=== PATIENT | female | born 1955 | race Hispanic/Latino ===

== ENCOUNTER 2016-12-23 07:09 | Inpatient (IN) | payer OTHER, MEDICARE ==
[2016-12-23] MEDS ORDERED: Metoclopramide HCl 10 MG/2 ML VIAL ONE (07:42)
[2016-12-23] MEDS ORDERED: diphenhydrAMINE HCl 50 MG/ML 1 ML VIAL ONE (07:42)
[2016-12-23] MEDS ORDERED: Fentanyl 100 MCG/2 ML VIAL ONE (07:42)
[2016-12-23] MEDS ORDERED: Magnesium Sulfate 2 GM/100 ML BAG ONE (07:42)
[2016-12-23 07:45] LABS: #Lymphocytes 1.1 thou/uL (1.20-3.40); #Monocytes 0.3 thou/uL (0.11-0.59); #Neutrophils 5.1 thou/uL (1.40-6.50); %Basophils 0.5 % (0.0-1.0); %Eosinophils 0.5 % (0.0-10.0); %Lymphocytes 17.1 % (21.0-51.0); %Monocytes 5.1 % (0.0-10.0); Hematocrit 37.2 % (36.0-47.0); Mean Platelet Volume 7.4 fL (7.4-10.4); White Blood Cell (WBC) Count 6.6 thou/uL (4.8-10.8)
[2016-12-23 08:08] LABS: ALT (SGPT) 14 U/L (8-55); AST (SGOT) 21 U/L (5-34); Alkaline Phosphatase 108 U/L (40-150); Anion Gap 13 mmol/L (10-20); BUN (Urea Nitrogen) 11 mg/dL (9.8-20.1); Bilirubin, Total 1.6 mg/dL (0.2-1.2); Calc. Creatinine Clearance 0 mL/min (70-130); Calcium 9.4 mg/dL (7.8-10.44); Carbon Dioxide 31 mmol/L (23-31); Chloride 98 mmol/L (98-107); Estimated GFR-MDRD 48; Globulin 4.2 g/dL (2.4-3.5); Lipase 17 U/L (8-78)
[2016-12-23 08:11] LABS: Magnesium 0.9 mg/dL (1.6-2.6)
[2016-12-23] MEDS ORDERED: Senokot 8.6 MG TAB PO PRN (10:42)
[2016-12-23] MEDS ORDERED: Loperamide HCl 2 MG CAP PO PRN (10:42)
[2016-12-23] MEDS ORDERED: Milk Of Magnesia 30 ML UDCUP PO PRN (10:42)
[2016-12-23] MEDS ORDERED: Zolpidem Tartrate 5 MG TAB PO PRN (10:42)
[2016-12-23] MEDS ORDERED: Ondansetron ODT 4 MG TAB PO PRN (10:42)
[2016-12-23] MEDS ORDERED: Loratadine 10 MG TAB PO PRN (10:42)
[2016-12-23] MEDS ORDERED: Artificial Tears 18 DROP/0.9 ML EA EYE PRN (10:42)
[2016-12-23] MEDS ORDERED: Potassium Chloride 20 MEQ/100 ML PREMIX BAG IVPB SCH (10:42)
[2016-12-23] MEDS ORDERED: Diabetic Tussin 200 MG/10 ML UDCUP PO PRN (10:42)
[2016-12-23] MEDS ORDERED: Eucerin (Mineral Oil/Petrolatum,White) 30 gm Jar TOP PRN (10:42)
[2016-12-23] MEDS ORDERED: Sodium Chloride 0.65% Nasal 44 ML BOT EA NARE PRN (10:42)
[2016-12-23] MEDS ORDERED: Magnesium Sulfate 2 GM in Sodium Chloride 0.9% 100 ML IVPB SCH (10:42)
[2016-12-23] MEDS ORDERED: Dextrose 5% in Water 1,000 ML IV PRN (11:18)
[2016-12-23] MEDS ORDERED: HumaLOG 300 UNITS/3 ML VIAL SC PRN (11:18)
[2016-12-23] MEDS ORDERED: Dextrose 50% Abboject 50 ML SYRINGE SLOW IVP PRN (11:18)
[2016-12-23] MEDS: Sodium Chloride 0.9% 1,000 ML IV SCH (11:45)
--- NOTE | 2016-12-23 11:47 | HP ---
PRIMARY CARE PHYSICIAN: Dr. Gabbie Bullock REASON FOR ADMISSION: Intractable nausea, vomiting. HISTORY OF PRESENT ILLNESS: A 61-year-old female who has underlying history of diabetes type 2, hypertension, morbid obesity, and diabetes gastroparesis who came to the emergency room with complaint of vague abdominal discomfort predominantly in the epigastric and upper abdominal region along with nausea. The patient was trying to eat at home, but she was not able to keep anything down, even liquids. She was having abdominal pain and nausea and increased salivation in her mouth. All these symptoms were going on for the last 3-4 days. The patient reports that she had exactly similar symptoms in the recent hospital admission. At that time, the patient required almost 1 week hospital stay. At that time, Dr. Wu did upper endoscopy that was normal and CT brain was negative. The patient was treated symptomatically and patient was discharged home on 12/03/2016. After that, the patient was doing well up until 3 days ago. She started feeling similar symptoms again and that is why she decided to come to the emergency room for evaluation. In the emergency room, the patient was requiring frequent suctioning from her mouth because of excessive salivation. She had routine blood test, which showed hypokalemia, hypomagnesemia. The patient was given IV fluid, magnesium sulfate, Reglan 10 mg, fentanyl 50 microgram, Benadryl 25 mg. Even after that, the patient's symptomatology was not improving and that is why we decided to keep this patient in the hospital for observation. The patient reports that she saw a aquaculture farm manager, Dr. Palmer, who agreed with the patient's diabetic gastroparesis is acting up. REVIEW OF SYSTEMS: The following complete review of systems was negative, unless otherwise mentioned in the HPI or below: Constitutional: Weight loss or gain, ability to conduct usual activities. Skin: Rash, itching. Eyes: Double vision, pain. ENT/Mouth: Nose bleeding, neck stiffness, pain, tenderness. Cardiovascular: Palpitations, dyspnea on exertion, orthopnea. Respiratory: Shortness of breath, wheezing, cough, hemoptysis, fever or night sweats. Gastrointestinal: Poor appetite, abdominal pain, heartburn, nausea, vomiting, constipation, or diarrhea. Genitourinary: Urgency, frequency, dysuria, nocturia. Musculoskeletal: Pain, swelling. Neurologic/Psychiatric: Anxiety, depression. Allergy/Immunologic: Skin rash, bleeding tendency. Please see my HPI for pertinent positives and negatives. All other review of systems reviewed and negative except as mentioned in the HPI. EMERGENCY ROOM COURSE: Patient is given IV fluids, fentanyl 50 microgram, Benadryl 25 mg, Reglan 10 mg, and magnesium sulfate 2 grams. PAST MEDICAL HISTORY: Morbid obesity with BMI of 42, diabetes type 2, diabetic gastroparesis, hypertension, dyslipidemia, glaucoma. PAST SURGICAL HISTORY: Bilateral cataract surgery, cholecystectomy, hysterectomy, bilateral salpingo-oophorectomy, tonsillectomy, left foot Charcot repair. CURRENT HOME MEDICATIONS: Lipitor 20 mg p.o. at bedtime, brimonidine with Timolol ophthalmic drops each eye twice daily, Bentyl 10 mg p.o. q.i.d., glimepiride 2 mg p.o. daily, Lantus insulin 50 units in the morning and 50 units in the evening, Xalatan eyedrops at bedtime, lisinopril 20 mg p.o. daily, Reglan 10 mg p.o. q.6 hourly p.r.n., Zofran 4 mg q.6 h. p.r.n., Protonix 40 mg p.o. daily, Aldactone 25 mg p.o. b.i.d., metformin 500 mg p.o. b.i.d. ADDITIONAL INFORMATION: The patient was hypertensive in the emergency room with blood pressure in 200 systolic. The patient was attributing that because of her discomfort in her abdomen as well as substernal discomfort from nausea and vomiting. PSYCHIATRIC HISTORY: Reviewed and negative. SOCIAL HISTORY: Patient is . She drinks alcohol twice a month. She denies any smoking. She denies any illicit drug abuse. ALLERGIES: PHENERGAN. FAMILY HISTORY: No strong family history of cancer, CVA. Diabetes runs among several family members. PHYSICAL EXAMINATION: VITAL SIGNS: On arrival, blood pressure 200/108, pulse 102, respiratory rate 16 , temperature 99.2, saturation 96% on room air, weight 106.5 kilograms. GENERAL: The patient is currently alert, awake, no obvious acute distress. HEENT: Head; normocephalic, atraumatic. Eyes: Pupils round, reactive to light. Extraocular muscles intact. ENT: Oropharynx within normal limits. Moist mucous membranes. No oral lesions. No pharyngeal erythema, no exudate. NECK: Supple. Range of motion is normal. No meningeal signs of irritation. LUNGS: Clear to auscultation without any rhonchi or rales. CARDIAC: S1, S2 regular, tachycardia, no murmur, no gallop, no rub. ABDOMEN: Soft, bowel sounds present. Mild epigastric discomfort noted, no peritoneal signs, no organomegaly, no mass, no suprapubic tenderness. Obesity limiting examination. BACK: Unremarkable, no CVA tenderness. EXTREMITIES: Upper extremity passive movement of all joints are normal. Lower extremities: No edema. Good peripheral pulsation. SKIN: No skin rash. HEMATOLOGIC: No lymphadenopathy. PSYCHIATRIC: Normal affect. SIGNIFICANT LABS: 1. Tele monitor was showing normal sinus rhythm. 2. CBC: WBC 6.6, hemoglobin 12.1, platelet 249. BMP shows sodium 139, potassium 3.2, chloride 98, carbon dioxide 31, BUN 11, creatinine 1.14, glucose 184, calcium 9.4 3. Magnesium 20.9 4. LFT: AST 21, ALT 14, alkaline phosphatase 108, albumin 3.8, lipase 17. ASSESSMENT AND PLAN: 1. Intractable nausea and vomiting. The patient has underlying diagnosis of gastroparesis. The patient had a gastric emptying scan in 2008. The patient also had recently a CT of the abdomen and pelvis which was unremarkable and patient also had negative upper endoscopy. At this point, the patient will require admission for observation and will do symptomatic treatment with Zofran and Reglan. We will also try erythromycin for diabetes gastroparesis to see any improvement. We will continue with Pepcid 20 mg IV b.i.d. We will provide diet as tolerated. 2. Hypokalemia. The patient will be given potassium chloride 20 mEq IV 1 time dose. 3. Hypomagnesemia. The patient is given magnesium sulfate 2 grams in the emergency room and will repeat another 2 gram IV 1 time dose. We will repeat magnesium level tomorrow. 4. Diabetes type 2. We will continue with insulin as per sliding scale protocol. Diabetic diet will be given. 5. Hypertension with hypertensive urgency. We will use hydralazine and labetalol p.r.n. basis. If the patient is tolerating p.o. well, then we will also start her home medication. 6. Glaucoma. We will continue patient's ophthalmic drops, brimonidine with Timolol ophthalmic drops, Xalatan eyedrops as per home dosage. 7. Gastroesophageal reflux disease. We will continue Pepcid 20 mg IV b.i.d. along with Protonix 40 mg IV daily. 8. Morbid obesity with body mass index of 42, weight loss education given. Healthy lifestyle measures discussed with the patient. 9. Deep venous thrombosis prophylaxis not needed because we are expecting discharge in 24 hours. 10. Gastrointestinal prophylaxis. Patient is already on Pepcid and Protonix therapy. 11. Code status: The patient is full code. The patient's is surrogate decision maker. Disposition plan likely within 24-48 hours. Plan of care discussed with the patient and at bedside in the emergency room. MTDD
[2016-12-23] MEDS ORDERED: Potassium Chloride 20 MEQ in Sodium Chloride 0.9% 250 ML 250 ML IVPB SCH (12:00)
[2016-12-23] MEDS ORDERED: Magnesium 2 GM/NS 0.9% 100 ML 2 GM in Premix Bag 1 BAG IVPB SCH (12:00)
[2016-12-23] MEDS ORDERED: FLU VACC QS2017-18 36 mo. & older 0.5 ML SYRINGE IM ONE (12:00)
[2016-12-23] MEDS: Metoclopramide HCl 10 MG/2 ML VIAL IVP PRN (12:12)
[2016-12-23] MEDS: Erythromycin 500 MG in Sodium Chloride 0.9% 250 ML 250 ML IVPB SCH ×3 (13:48→23:23)
[2016-12-23] MEDS: Ondansetron HCl/PF 4 MG/2 ML Vial IVP PRN (15:28)
[2016-12-23] MEDS: Famotidine/PF 20 mg/2ml Vial SLOW IVP SCH (20:10)
[2016-12-24] MEDS: Sodium Chloride 0.9% 1,000 ML IV SCH ×2 (01:48→10:37)
[2016-12-24] MEDS: Ondansetron HCl/PF 4 MG/2 ML Vial IVP PRN (02:22)
[2016-12-24] MEDS: Metoclopramide HCl 10 MG/2 ML VIAL IVP PRN (03:19)
[2016-12-24] MEDS: Acetaminophen 325 MG TAB PO PRN ×2 (03:31→09:04)
[2016-12-24] MEDS: cloNIDine HCl 0.1 MG TAB PO PRN (03:33)
[2016-12-24] MEDS: Erythromycin 500 MG in Sodium Chloride 0.9% 250 ML 250 ML IVPB SCH ×4 (05:31→23:52)
[2016-12-24 05:49] LABS: Anion Gap 11 mmol/L (10-20); BUN (Urea Nitrogen) 12 mg/dL (9.8-20.1); BUN/Creatinine Ratio 13.48; Calc. Creatinine Clearance 111 mL/min (70-130); Calcium 8.2 mg/dL (7.8-10.44); Carbon Dioxide 29 mmol/L (23-31); Chloride 102 mmol/L (98-107); Estimated GFR-MDRD 64; Magnesium 1.2 mg/dL (1.6-2.6); Phosphorus 2.5 mg/dL (2.3-4.7)
[2016-12-24] MEDS: Pantoprazole 40 MG VIAL IVP SCH (09:05)
[2016-12-24] MEDS: Famotidine/PF 20 mg/2ml Vial SLOW IVP SCH ×2 (09:05→21:47)
[2016-12-24] MEDS ORDERED: Metoclopramide HCl 10 MG/2 ML VIAL IVP SCH (09:30)
--- NOTE | 2016-12-24 09:41 | PDOC.PN ---
- Subjective Encounter Start Date: 12/24/16 Encounter Start Time: 09:39 still having some nausea and abd discomfort no vomiting no f/c no sob - Objective Resuscitation Status: Resuscitation Status FULL:Full Resuscitation MAR Reviewed: Yes Vital Signs & Weight: Vital Signs (12 hours) Temp Pulse Resp BP BP Pulse Ox 12/24/16 07:46 98.6 F 90 16 12/24/16 07:19 98.6 F 90 16 144/88 H 95 12/24/16 04:56 98 14 153/78 H 12/24/16 03:33 198/97 H 12/24/16 03:19 98.5 F 104 H 16 198/97 H 94 L 12/24/16 03:12 98 12/23/16 23:17 99.1 F 101 H 20 136/71 98 Weight Weight 232 lb 8 oz I&O: 12/23/16 12/24/16 12/25/16 06:59 06:59 06:59 Intake Total 2968 Output Total 1250 Balance 1718 Result Diagrams: 12/23/16 07:37 12/24/16 04:55 Additional Labs: Accuchecks 12/24/16 12/23/16 12/23/16 04:55 20:24 16:59 POC Glucose 129 H 186 H 219 H 12/23/16 12:18 POC Glucose 222 H Phys Exam - Physical Examination Constitutional: NAD HEENT: moist MMs Neck: no JVD Respiratory: no wheezing Cardiovascular: no significant murmur Gastrointestinal: soft mild tenderness in epigastric area Musculoskeletal: pulses present Neurological: moves all 4 limbs Dx/Plan (1) Gastroparesis Code(s): K31.84 - GASTROPARESIS Status: Acute (2) Intractable nausea and vomiting Code(s): R11.2 - NAUSEA WITH VOMITING, UNSPECIFIED Status: Acute (3) DM2 (diabetes mellitus, type 2) Status: Chronic Qualifiers: Diabetes mellitus complication status: with neurologic complications Diabetes mellitus complication detail: with polyneuropathy Diabetes mellitus bed bug exterminator insulin use: with bed bug exterminator use Qualified Code(s): E11.42 - Type 2 diabetes mellitus with diabetic polyneuropathy; Z79.4 - bed bug exterminator (current) use of insulin Comment: (4) HTN (hypertension) Code(s): I10 - ESSENTIAL (PRIMARY) HYPERTENSION Status: Chronic Comment: (5) Morbid obesity with BMI of 40.0-44.9, adult Code(s): E66.01 - MORBID (SEVERE) OBESITY DUE TO EXCESS CALORIES; Z68.41 - BODY MASS INDEX (BMI) 40.0-44.9, ADULT Status: Chronic (6) Hypokalemia Code(s): E87.6 - HYPOKALEMIA Status: Resolved (7) Hypomagnesemia Code(s): E83.42 - HYPOMAGNESEMIA Status: Resolved (8) Moderate dehydration Code(s): E86.0 - DEHYDRATION Status: Resolved Comment: - Plan * .
[2016-12-24] MEDS ORDERED: Potassium Chloride 20 MEQ/100 ML PREMIX BAG IVPB SCH (10:00)
[2016-12-24] MEDS ORDERED: Magnesium Sulfate 2 GM in Sodium Chloride 0.9% 100 ML IVPB SCH (10:00)
[2016-12-24] MEDS: Metoclopramide HCl 10 MG/2 ML VIAL IVP SCH ×3 (10:44→21:49)
[2016-12-24] MEDS: HumaLOG 300 UNITS/3 ML VIAL SC PRN (11:25)
[2016-12-25] MEDS: Ondansetron HCl/PF 4 MG/2 ML Vial IVP PRN ×3 (00:31→16:09)
[2016-12-25] MEDS: Mag-Al 1200 mg/1200 mg/30 ML UDCUP PO PRN (01:43)
[2016-12-25] MEDS: Acetaminophen 325 MG TAB PO PRN (02:36)
[2016-12-25] MEDS: Metoclopramide HCl 10 MG/2 ML VIAL IVP SCH ×5 (03:44→23:46)
[2016-12-25] MEDS: cloNIDine HCl 0.1 MG TAB PO PRN (03:50)
[2016-12-25 04:45] LABS: Anion Gap 13 mmol/L (10-20); BUN (Urea Nitrogen) 10 mg/dL (9.8-20.1); BUN/Creatinine Ratio 11.76; Calc. Creatinine Clearance 116 mL/min (70-130); Calcium 8.5 mg/dL (7.8-10.44); Carbon Dioxide 29 mmol/L (23-31); Chloride 97 mmol/L (98-107); Estimated GFR-MDRD 68; Magnesium 1.4 mg/dL (1.6-2.6); Phosphorus 2.2 mg/dL (2.3-4.7)
[2016-12-25] MEDS: Erythromycin 500 MG in Sodium Chloride 0.9% 250 ML 250 ML IVPB SCH (06:03)
[2016-12-25] MEDS: Pantoprazole 40 MG VIAL IVP SCH (06:36)
[2016-12-25] MEDS: Famotidine/PF 20 mg/2ml Vial SLOW IVP SCH ×2 (08:09→21:11)
[2016-12-25] MEDS: Sodium Chloride 0.9% 1,000 ML IV SCH (08:20)
[2016-12-25] MEDS ORDERED: Magnesium 2 GM/NS 0.9% 100 ML 2 GM in Premix Bag 1 BAG IVPB SCH (10:00)
[2016-12-25] MEDS ORDERED: Potassium Chloride 20 MEQ/100 ML PREMIX BAG IVPB SCH ×2 (10:26→21:00)
[2016-12-25] MEDS ORDERED: Magnesium Sulfate 4 GM in Sodium Chloride 0.9% 250 ML 250 ML IVPB SCH (11:00)
--- NOTE | 2016-12-25 13:19 | PDOC.PN ---
- Subjective Encounter Start Date: 12/25/16 Encounter Start Time: 13:18 still very nauseus c/o abd pain no f/v no cp wants to try cld and advance tolerated - Objective Resuscitation Status: Resuscitation Status FULL:Full Resuscitation MAR Reviewed: Yes Vital Signs & Weight: Vital Signs (12 hours) Temp Pulse Resp BP BP Pulse Ox 12/25/16 10:45 99.3 F 95 20 149/72 H 91 L 12/25/16 08:58 108 H 12/25/16 08:00 98.2 F 119 H 24 H 12/25/16 07:40 98.2 F 119 H 24 H 118/76 95 12/25/16 07:00 132/60 12/25/16 06:40 105 H 211/114 H 12/25/16 06:05 105 H 187/94 H 12/25/16 03:50 211/102 H 12/25/16 03:45 99.2 F 105 H 18 211/102 H 95 Weight Admit Weight 231 lb 4.8 oz Weight 231 lb I&O: 12/24/16 12/25/16 12/26/16 06:59 06:59 06:59 Intake Total 2968 1357 250 Output Total 1250 2300 Balance 1718 -943 250 Result Diagrams: 12/23/16 07:37 12/25/16 04:19 Additional Labs: Accuchecks 12/25/16 12/25/16 12/24/16 10:45 06:14 20:49 POC Glucose 192 H 206 H 197 H 12/24/16 16:46 POC Glucose 162 H Phys Exam - Physical Examination Constitutional: NAD HEENT: PERRLA, moist MMs Neck: no JVD Respiratory: no rales Cardiovascular: RRR epigastric tenderness Musculoskeletal: pulses present Neurological: moves all 4 limbs Psychiatric: A&O x 3 Dx/Plan (1) Gastroparesis Code(s): K31.84 - GASTROPARESIS Status: Acute (2) Intractable nausea and vomiting Code(s): R11.2 - NAUSEA WITH VOMITING, UNSPECIFIED Status: Acute (3) DM2 (diabetes mellitus, type 2) Status: Chronic Qualifiers: Diabetes mellitus complication status: with neurologic complications Diabetes mellitus complication detail: with polyneuropathy Diabetes mellitus buttermilk drier operator insulin use: with [facility] use Qualified Code(s): E11.42 - Type 2 diabetes mellitus with diabetic polyneuropathy; Z79.4 - laborer marine terminal (current) use of insulin Comment: (4) HTN (hypertension) Code(s): I10 - ESSENTIAL (PRIMARY) HYPERTENSION Status: Chronic Comment: (5) Morbid obesity with BMI of 40.0-44.9, adult Code(s): E66.01 - MORBID (SEVERE) OBESITY DUE TO EXCESS CALORIES; Z68.41 - BODY MASS INDEX (BMI) 40.0-44.9, ADULT Status: Chronic (6) Hypokalemia Code(s): E87.6 - HYPOKALEMIA Status: Resolved (7) Hypomagnesemia Code(s): E83.42 - HYPOMAGNESEMIA Status: Resolved (8) Moderate dehydration Code(s): E86.0 - DEHYDRATION Status: Resolved Comment: - Plan * replace and f/u lytes * gi consult * make inpatient
[2016-12-25] MEDS: Labetalol HCl 100 MG/20 ML VIAL SLOW IVP PRN (16:07)
--- NOTE | 2016-12-25 17:17 | CON ---
DATE OF CONSULTATION: 12/25/2016 GI INPATIENT CONSULTATION NOTE REQUESTING PHYSICIAN: Dr. Alonso. REASON FOR CONSULTATION: Gastroparesis, nausea and vomiting. HISTORY OF PRESENT ILLNESS: Lilli Pike is a 61-year-old woman seen in GI outpatient setting by my colleague, Dr. Edgar Palmer. Her last colonoscopy in 2013 showed two small colon polyps removed an d sigmoid diverticulosis. She has a recent diagnosis of diabetic gastroparesis, her diabetes requir es quite high doses of insulin. She says few years ago, she was having issues with intractable naus ea and vomiting, but that resolved for a while, but now over the past couple of months, she has agai n been having issues with nausea, vomiting, and also excessive salivation. She was hospitalized her e for about a week last month and seen by Dr. Davis and Dr. Wu at that time, she had an EGD on which was normal. She had a head CT on 12/02/2016 which showed no acute processes. She had a CT of the abdomen and pelvis on 11/28/2016 which showed no acute findings. Her lab studies have all been essentially unremarkable with the exception of electrolyte abnormalities. but liver tests a nd lipase and CBC have remained normal throughout all this. She was started on Reglan, which she arthur s been taking the past couple weeks as an outpatient. She was also recently started on amitriptylin e 25 mg at bedtime which she feels helped a little bit. However, her epigastric pain and nausea got more severe and she was admitted to the hospital 2 days ago. Since being here, she has been treate d with IV PPIs, Reglan 10 mg q.6 hours IV, erythromycin IV was also tried. She has been receiving Z ofran. She has not received her amitriptyline here yet. Of note, upon arrival, she was in hyperten sive urgency and found to be hypokalemic and hypomagnesemic, through all of this; she has continued to have normal bowel movements. Earlier today, she was actually able to tolerate her diet and has k ept down. However, she does continue to have dry heaves and is doing a lot of spitting into a bag. REVIEW OF SYSTEMS: Full review of systems including constitutional, head, eyes, ears, nose, throat, GI, , cardiovascular, respiratory, musculoskeletal, and neurologic systems is negative except as noted in the HPI. PAST MEDICAL HISTORY: Obesity, hypertension, hyperlipidemia, diabetes, cholecystectomy, hysterectom y and bilateral salpingo-oophorectomy, diabetic gastroparesis, colon polyps with last colonoscopy 20 14, sigmoid diverticulosis. ALLERGIES: PHENERGAN causes oversedation. OUTPATIENT MEDICATIONS: Lipitor, glimepiride, Lantus insulin, lisinopril, Aldactone, Protonix 40 mg daily, metformin, Zofran, Reglan 10 mg q.i.d., amitriptyline 25 mg at bedtime. INPATIENT MEDICATIONS: Maalox, clonidine, Pepcid IV, Protonix IV, sliding scale insulin, Reglan 10 mg q.6 hours IV, Zofran p.r.n., erythromycin IV. SOCIAL HISTORY: Alcohol use is occasional. No smoking or drug use. FAMILY HISTORY: Her father had brain cancer. PHYSICAL EXAMINATION: VITAL SIGNS: Temperature 99.3, blood pressure 149/72, pulse is 95, 91% oxygen saturation on room ai r. GENERAL: Obese 61-year-old woman sitting up in bed in mild distress from nausea. She will occasion ally dry heaves salivating and spit into the bag. SKIN: No jaundice, no rashes were palpable. EYES: No scleral icterus. Extraocular movements intact. ENT: Mucous membranes moist, no oral lesions. LYMPH: No submandibular or supraclavicular lymphadenopathy. THYROID: Nontender to palpation. HEART: Regular rate and rhythm. LUNGS: Clear to auscultation bilaterally. ABDOMEN: Bowel sounds present, soft, tender to palpation in the epigastrium, but no guarding or gallo ound tenderness. EXTREMITIES: No peripheral edema. VESSELS: Radial pulses 2+ bilaterally. NEUROLOGICAL: Cranial nerves II-XII intact bilaterally. No focal deficits. LABORATORY DATA: WBC 6.6, hemoglobin 12.1, and platelets 249. Sodium 136, potassium 3.1, BUN 10, c reatinine 0.85, glucose 192, phosphorus 2.2, magnesium 1.4, lipase 17. Total bilirubin 1.6, alkalin e phosphatase 108, AST 21, ALT 14, albumin 3.8. ASSESSMENT AND PLAN: 1. Diabetic gastroparesis. 2. Nausea and vomiting secondary to gastroparesis. I reviewed all of her recent workup and her pre sentation is indeed consistent with gastroparesis. She is having quite a severe exacerbation of thi s right now. It seems medications are fairly maxed out. I do agree with adding back the amitriptyl ine 25 mg at bedtime, starting tonight and continue with IV fluid support, advance diet slowly as to lerated. She was able to rather keep her food down early today. 3. GI will follow along.
[2016-12-25] MEDS ORDERED: Potassium Chloride 20 MEQ in Sodium Chloride 0.9% 250 ML 250 ML IVPB SCH (21:00)
[2016-12-25] MEDS: Amitriptyline HCl 25 MG TAB PO SCH (21:11)
[2016-12-26] MEDS: cloNIDine HCl 0.1 MG TAB PO PRN (00:24)
[2016-12-26] MEDS: Mag-Al 1200 mg/1200 mg/30 ML UDCUP PO PRN ×2 (00:25→18:18)
[2016-12-26] MEDS: Sodium Chloride 0.9% 1,000 ML IV SCH (02:57)
[2016-12-26] MEDS: Potassium Chloride 20 MEQ in Sodium Chloride 0.9% 250 ML 250 ML IVPB SCH ×2 (02:57→13:09)
[2016-12-26] MEDS: Metoclopramide HCl 10 MG/2 ML VIAL IVP SCH ×3 (06:33→18:30)
[2016-12-26 07:15] LABS: Anion Gap 8 mmol/L (10-20); BUN (Urea Nitrogen) 8 mg/dL (9.8-20.1); Calc. Creatinine Clearance 122 mL/min (70-130); Calcium 8.3 mg/dL (7.8-10.44); Carbon Dioxide 30 mmol/L (23-31); Chloride 98 mmol/L (98-107); Estimated GFR-MDRD 73; Magnesium 1.5 mg/dL (1.6-2.6); Phosphorus 2.6 mg/dL (2.3-4.7)
[2016-12-26] MEDS: Pantoprazole 40 MG VIAL IVP SCH (08:01)
[2016-12-26] MEDS: Ondansetron HCl/PF 4 MG/2 ML Vial IVP PRN ×2 (08:01→16:04)
[2016-12-26] MEDS: Famotidine/PF 20 mg/2ml Vial SLOW IVP SCH ×2 (08:01→21:23)
[2016-12-26] MEDS ORDERED: Magnesium 2 GM/NS 0.9% 100 ML 2 GM in Premix Bag 1 BAG IVPB SCH (11:30)
--- NOTE | 2016-12-26 12:39 | PRG ---
GI INPATIENT DAILY PROGRESS NOTE DATE OF SERVICE: 12/26/2016 SUBJECTIVE: Mr. Pike is feeling quite a bit better today. She was able to tolerate her dinner l ast night and her breakfast this morning, which included grits and some juice. She had some mild dr shade enrique, but no vomiting since we talked yesterday. Abdominal discomfort persists a little bit, bu t has also improved. OBJECTIVE: VITAL SIGNS: Temperature 99.8, pulse 87, blood pressure 159/85 and 93% oxygen saturation on room ai r. GENERAL: Sitting up in bed comfortably in no distress. HEART: Regular rate and rhythm. LUNGS: Clear to auscultation bilaterally. ABDOMEN: Bowel sounds present, soft and nontender. EXTREMITIES: No peripheral edema. LABORATORY STUDIES: Sodium 133, potassium 3.4, BUN 8, creatinine 0.80, glucose 227, magnesium 1.5, albumin 3.0, phosphorus 2.6 and calcium 8.3. ASSESSMENT AND PLAN: 1. Gastroparesis secondary to diabetes. 2. Nausea and vomiting secondary to gastroparesis, improved today. Thankfully, she was able to get good sleep and has improvement in symptoms after starting back on the amitriptyline 25 mg at bedtim e. Hopefully, she will continue to do well. If she is able to advance her diet and do okay, she co uld be discharged from the hospital from a GI perspective to follow up with Dr. Palmer in our outpatie nt clinic.
[2016-12-26] MEDS ORDERED: Potassium Chloride 20 MEQ/100 ML PREMIX BAG IVPB SCH (16:00)
[2016-12-26] MEDS: Acetaminophen 325 MG TAB PO PRN (16:05)
[2016-12-26] MEDS: Labetalol HCl 100 MG/20 ML VIAL SLOW IVP PRN (16:28)
--- NOTE | 2016-12-26 17:19 | PDOC.PN ---
- Subjective Encounter Start Date: 12/26/16 Encounter Start Time: 17:18 Patient seen and examined. No new complaints. No overnight events nausea better no f/c - Objective MAR Reviewed: Yes Vital Signs & Weight: Vital Signs (12 hours) Temp Pulse Resp BP BP Pulse Ox 12/26/16 16:28 94 200/93 H 12/26/16 08:00 99.8 F H 87 18 159/85 H 93 L 12/26/16 05:33 93 L Weight Weight 231 lb 4.238 oz I&O: 12/25/16 12/26/16 12/27/16 06:59 06:59 06:59 Intake Total 700 Balance 700 Result Diagrams: 12/23/16 07:37 12/26/16 05:46 Additional Labs: Accuchecks 12/26/16 12/26/16 12/26/16 16:22 12:19 04:30 POC Glucose 259 H 226 H 208 H 12/25/16 12/25/16 20:01 16:59 POC Glucose 228 H 188 H Phys Exam - Physical Examination Constitutional: NAD HEENT: PERRLA Neck: no JVD Respiratory: no rales Cardiovascular: no significant murmur Gastrointestinal: non-tender Musculoskeletal: pulses present Neurological: moves all 4 limbs Psychiatric: A&O x 3 Dx/Plan (1) Gastroparesis Code(s): K31.84 - GASTROPARESIS Status: Acute (2) Intractable nausea and vomiting Code(s): R11.2 - NAUSEA WITH VOMITING, UNSPECIFIED Status: Acute (3) DM2 (diabetes mellitus, type 2) Status: Chronic Qualifiers: Diabetes mellitus complication status: with neurologic complications Diabetes mellitus complication detail: with polyneuropathy Diabetes mellitus fpc insulin use: with fpc use Qualified Code(s): E11.42 - Type 2 diabetes mellitus with diabetic polyneuropathy; Z79.4 - long term care pharmacist (current) use of insulin Comment: (4) HTN (hypertension) Code(s): I10 - ESSENTIAL (PRIMARY) HYPERTENSION Status: Chronic Comment: (5) Morbid obesity with BMI of 40.0-44.9, adult Code(s): E66.01 - MORBID (SEVERE) OBESITY DUE TO EXCESS CALORIES; Z68.41 - BODY MASS INDEX (BMI) 40.0-44.9, ADULT Status: Chronic (6) Hypokalemia Code(s): E87.6 - HYPOKALEMIA Status: Resolved (7) Hypomagnesemia Code(s): E83.42 - HYPOMAGNESEMIA Status: Resolved (8) Moderate dehydration Code(s): E86.0 - DEHYDRATION Status: Resolved Comment: - Plan * .
[2016-12-26] MEDS: HumaLOG 300 UNITS/3 ML VIAL SC PRN (17:49)
[2016-12-26] MEDS: Amitriptyline HCl 25 MG TAB PO SCH (21:23)
[2016-12-27] MEDS: Metoclopramide HCl 10 MG/2 ML VIAL IVP SCH ×4 (00:04→17:40)
[2016-12-27] MEDS: Mag-Al 1200 mg/1200 mg/30 ML UDCUP PO PRN ×2 (00:09→21:09)
[2016-12-27] MEDS: cloNIDine HCl 0.1 MG TAB PO PRN (03:20)
[2016-12-27] MEDS: HumaLOG 300 UNITS/3 ML VIAL SC PRN ×3 (05:47→16:11)
[2016-12-27 06:30] LABS: Anion Gap 8 mmol/L (10-20); BUN (Urea Nitrogen) 6 mg/dL (9.8-20.1); BUN/Creatinine Ratio 7.06; Calc. Creatinine Clearance 113 mL/min (70-130); Calcium 8.6 mg/dL (7.8-10.44); Carbon Dioxide 33 mmol/L (23-31); Chloride 93 mmol/L (98-107); Estimated GFR-MDRD 68; Magnesium 1.3 mg/dL (1.6-2.6); Phosphorus 2.4 mg/dL (2.3-4.7)
[2016-12-27] MEDS: Famotidine/PF 20 mg/2ml Vial SLOW IVP SCH ×2 (07:55→20:44)
[2016-12-27] MEDS: Pantoprazole 40 MG VIAL IVP SCH (08:00)
[2016-12-27] MEDS ORDERED: Magnesium 2 GM/NS 0.9% 100 ML 2 GM in Premix Bag 1 BAG IVPB SCH (10:30)
[2016-12-27] MEDS ORDERED: Potassium Chloride 20 MEQ/100 ML PREMIX BAG IVPB SCH (10:30)
--- NOTE | 2016-12-27 11:02 | PRG ---
DATE OF SERVICE: 12/27/2016 SUBJECTIVE: Ms. Pike has not had any further vomiting over the past 24 hours. She was able to g et good sleep last night with the amitriptyline. She continues to just spit out her secretions and uses suction for this. She denies dysphagia just says that when she swallows her saliva it increase s her nausea, no abdominal pain. She was able to tolerate her breakfast of yogurt and ice cream tod ay without difficulty. OBJECTIVE: VITAL SIGNS: Temperature 99.3, pulse 97, blood pressure 176/95, 91% oxygen saturation on room air. GENERAL: Sitting up in bed comfortably in no distress. HEART: Regular rate and rhythm. LUNGS: Clear to auscultation bilaterally. ABDOMEN: Soft and nontender. EXTREMITIES: No peripheral edema. LABORATORY STUDIES: Sodium 131, potassium 3.2, BUN 6, creatinine 0.85, glucose 252, magnesium 1.3. ASSESSMENT AND PLAN: 1. Diabetic gastroparesis. 2. Nausea and vomiting secondary to gastroparesis, clinically stable. The patient does seem to have significant improvement after starting back on the amitriptyline the p ast couple of nights. From a GI perspective, I think she could be discharged home to follow up in t outpatient setting as needed with Dr. Palmer. Would continue the Reglan p.o. as well. Please call back with questions or concerns.
[2016-12-27] MEDS: Acetaminophen 325 MG TAB PO PRN ×2 (11:42→21:09)
[2016-12-27 13:56] VITALS: BMI 41.5
--- NOTE | 2016-12-27 14:26 | PDOC.PN ---
- Subjective Encounter Start Date: 12/27/16 (\) Encounter Start Time: 14:24 still nausea, but is keep some cld down no f/c ambulating well - Objective MAR Reviewed: Yes Vital Signs & Weight: Vital Signs (12 hours) Temp Pulse Resp BP BP BP Pulse Ox 12/27/16 12:03 99.7 F H 93 16 133/79 12/27/16 10:40 153/87 H 12/27/16 08:00 99.3 F 97 16 12/27/16 07:23 99.3 F 97 16 176/95 H 91 L 12/27/16 06:00 85 160/77 H 12/27/16 05:20 86 185/108 H 12/27/16 05:00 98.7 F 86 18 185/108 H 95 12/27/16 03:35 92 L 12/27/16 03:20 184/99 H Weight Admit Weight 231 lb 4.8 oz Weight 227 lb 2 oz I&O: 12/26/16 12/27/16 12/28/16 06:59 06:59 06:59 Intake Total 700 840 Balance 700 840 Result Diagrams: 12/23/16 07:37 12/27/16 05:45 Additional Labs: Accuchecks 12/27/16 12/27/16 12/26/16 11:40 05:00 20:14 POC Glucose 258 H 245 H 289 H 12/26/16 16:22 POC Glucose 259 H Phys Exam - Physical Examination Constitutional: NAD HEENT: moist MMs Neck: no JVD Respiratory: no rales Cardiovascular: no significant murmur Gastrointestinal: non-tender Musculoskeletal: pulses present Neurological: moves all 4 limbs Psychiatric: A&O x 3 Dx/Plan (1) Gastroparesis Code(s): K31.84 - GASTROPARESIS Status: Acute (2) Intractable nausea and vomiting Code(s): R11.2 - NAUSEA WITH VOMITING, UNSPECIFIED Status: Acute (3) DM2 (diabetes mellitus, type 2) Status: Chronic Qualifiers: Diabetes mellitus complication status: with neurologic complications Diabetes mellitus complication detail: with polyneuropathy Diabetes mellitus predatory animal exterminator insulin use: with predatory animal exterminator use Qualified Code(s): E11.42 - Type 2 diabetes mellitus with diabetic polyneuropathy; Z79.4 - ferry terminal agent (current) use of insulin Comment: (4) HTN (hypertension) Code(s): I10 - ESSENTIAL (PRIMARY) HYPERTENSION Status: Chronic Comment: (5) Morbid obesity with BMI of 40.0-44.9, adult Code(s): E66.01 - MORBID (SEVERE) OBESITY DUE TO EXCESS CALORIES; Z68.41 - BODY MASS INDEX (BMI) 40.0-44.9, ADULT Status: Chronic (6) Hypokalemia Code(s): E87.6 - HYPOKALEMIA Status: Resolved (7) Hypomagnesemia Code(s): E83.42 - HYPOMAGNESEMIA Status: Resolved (8) Moderate dehydration Code(s): E86.0 - DEHYDRATION Status: Resolved Comment: - Plan * replace mag and k * check lytes in am * d/c when symptoms resolved * gi input appreciated
[2016-12-27] MEDS: Ondansetron HCl/PF 4 MG/2 ML Vial IVP PRN (16:12)
[2016-12-27] MEDS: Amitriptyline HCl 25 MG TAB PO SCH (20:44)
[2016-12-27] MEDS: Magnesium Oxide 400 MG TAB PO SCH (20:44)
[2016-12-28] MEDS: Metoclopramide HCl 10 MG/2 ML VIAL IVP SCH ×3 (00:33→12:21)
[2016-12-28 04:32] LABS: #Lymphocytes 1.5 thou/uL (1.20-3.40); #Monocytes 0.4 thou/uL (0.11-0.59); #Neutrophils 6.1 thou/uL (1.40-6.50); %Basophils 0.1 % (0.0-1.0); %Eosinophils 0.4 % (0.0-10.0); %Lymphocytes 18.4 % (21.0-51.0); %Monocytes 5.1 % (0.0-10.0); Hematocrit 38.4 % (36.0-47.0); Mean Platelet Volume 7.3 fL (7.4-10.4); Red Blood Cell (RBC) Count 4.18 mill/uL (4.20-5.40)
[2016-12-28 05:14] LABS: Anion Gap 13 mmol/L (10-20); BUN (Urea Nitrogen) 6 mg/dL (9.8-20.1); BUN/Creatinine Ratio 7.32; Calc. Creatinine Clearance 117 mL/min (70-130); Calcium 8.9 mg/dL (7.8-10.44); Carbon Dioxide 31 mmol/L (23-31); Chloride 90 mmol/L (98-107); Estimated GFR-MDRD 71; Magnesium 1.3 mg/dL (1.6-2.6); Phosphorus 2.7 mg/dL (2.3-4.7)
[2016-12-28] MEDS: HumaLOG 300 UNITS/3 ML VIAL SC PRN ×2 (05:43→12:21)
[2016-12-28] MEDS ORDERED: Potassium Chloride 20 MEQ TAB PO SCH (09:00)
[2016-12-28] MEDS: Famotidine/PF 20 mg/2ml Vial SLOW IVP SCH (09:30)
[2016-12-28] MEDS: Magnesium Oxide 400 MG TAB PO SCH (09:30)
[2016-12-28] MEDS: Ondansetron HCl/PF 4 MG/2 ML Vial IVP PRN (09:32)
--- NOTE | 2016-12-28 10:52 | PDOC.PN ---
- Subjective Encounter Start Date: 12/28/16 Encounter Start Time: 07:30 Subjective: no nausea or vomiting -: ambulates with walker -: feels better, wants to go home - Objective MAR Reviewed: Yes Vital Signs & Weight: Vital Signs (12 hours) Temp Pulse Resp BP Pulse Ox 12/28/16 08:00 99.5 F 106 H 18 93 L 12/28/16 07:33 99.5 F 106 H 18 165/104 H 93 L 12/28/16 04:00 98.6 F 106 H 18 169/75 H 92 L 12/28/16 00:00 98.9 F 91 18 181/101 H 94 L Weight Admit Weight 231 lb 4.8 oz Weight 226 lb 4 oz I&O: 12/27/16 12/28/16 12/29/16 06:59 06:59 06:59 Intake Total 840 1780 Balance 840 1780 Result Diagrams: 12/28/16 03:43 12/28/16 03:43 Additional Labs: Accuchecks 12/28/16 12/27/16 12/27/16 04:21 19:44 15:57 POC Glucose 229 H 243 H 193 H 12/27/16 11:40 POC Glucose 258 H Phys Exam - Physical Examination HEENT: PERRLA, moist MMs Neck: no JVD, supple Respiratory: no wheezing, no rales Cardiovascular: RRR, no significant murmur Gastrointestinal: soft, non-tender, no distention, positive bowel sounds Musculoskeletal: no edema, pulses present Neurological: non-focal, moves all 4 limbs Psychiatric: A&O x 3 Dx/Plan (1) Gastroparesis Code(s): K31.84 - GASTROPARESIS Status: Acute (2) Intractable nausea and vomiting Code(s): R11.2 - NAUSEA WITH VOMITING, UNSPECIFIED Status: Resolved (3) DM2 (diabetes mellitus, type 2) Status: Chronic Qualifiers: Diabetes mellitus complication status: with neurologic complications Diabetes mellitus complication detail: with polyneuropathy Diabetes mellitus nursing home insulin use: with nursing home use Qualified Code(s): E11.42 - Type 2 diabetes mellitus with diabetic polyneuropathy; Z79.4 - terminal manager (current) use of insulin Comment: (4) HTN (hypertension) Code(s): I10 - ESSENTIAL (PRIMARY) HYPERTENSION Status: Chronic Qualifiers: Hypertension type: essential hypertension Qualified Code(s): I10 - Essential (primary) hypertension Comment: (5) Morbid obesity with BMI of 40.0-44.9, adult Code(s): E66.01 - MORBID (SEVERE) OBESITY DUE TO EXCESS CALORIES; Z68.41 - BODY MASS INDEX (BMI) 40.0-44.9, ADULT Status: Chronic (6) Acute kidney injury Code(s): N17.9 - ACUTE KIDNEY FAILURE, UNSPECIFIED Status: Resolved Comment : (7) Moderate dehydration Code(s): E86.0 - DEHYDRATION Status: Resolved Comment: - Plan dc pt home -: start home meds as adv on dc med rec -: was not insulin or diabetic meds here, so will start only tabs for now -: request zofran and reglan prescriptions-its faxed -: to f/u with GI as adv and PCP in 1 week. * .
[2016-12-28 11:26] VITALS: TEMP 99.3
[2016-12-28 12:46] VITALS: BP 146/89
--- NOTE | 2016-12-28 20:28 | DIS ---
DATE OF ADMISSION: 12/23/2016 DATE OF DISCHARGE: 12/28/2016 DISCHARGE DISPOSITION: To home. PRIMARY DISCHARGE DIAGNOSES: Intractable nausea and vomiting due to diabetic gastroparesis, resolve d; diabetes mellitus type 2; hypertension; morbid obesity; acute kidney injury, resolved; moderate d ehydration, resolved. DISCHARGE MEDICATIONS: Amitriptyline 25 mg p.o. at bedtime, atorvastatin 20 mg p.o. at bedtime, Com bigan eyedrops as before, Bentyl p.r.n., glimepiride 2 mg p.o. q.a.m., glargine insulin 10 units sub cutaneously twice daily, Xalatan eyedrops as before, lisinopril 40 mg p.o. daily, magnesium oxide 40 0 mg p.o. daily, Reglan 10 mg p.o. q.6 hourly p.r.n. before meals for nausea and vomiting, Protonix 40 mg p.o. daily, spironolactone 25 mg p.o. daily, metformin 500 mg p.o. twice daily. ALLERGIES: Allergic to PHENERGAN. INPATIENT CONSULT: Dr. Vaughn Luciano for Gastroenterology. DISCHARGE PLAN: Patient to follow up with primary care physician in 1 week. She also needs to chec k her blood pressure and fingerstick glucose on a daily basis and record for a period of 10 days to follow up with primary care physician. BRIEF COURSE DURING HOSPITALIZATION: The patient initially got admitted with complaints of intracta ble nausea and vomiting. She has history of diabetes mellitus type 2 with neuropathy and gastropare sis. She was initially kept n.p.o. and was slowly weaned into solid food prior to discharge. She h as had consultation with Dr. Vaughn Luciano for Gastroenterology. She has had slow and steady recovery. Prior to discharge, she is ambulating with a rolling walker and tolerating solid food. She is hem odynamically stable and has been cleared by Dr. Vaughn Luciano for discharge. Please see a face to face documentation on [facility] for the day of discharge.
== END 2016-12-28 13:12 | disposition home or self-care (01) | DRG 74 ==
LOC: ERS 07:09 → INTOOBSV 08:49 → 2SW 08:49 → OBSVTOIN 12-25 13:08 → T4-A 12-25 14:50
PROVIDERS: ADMIT Internal Medicine; ATTEND Internal Medicine
DX: E11.43 Type 2 diabetes mellitus with diabetic autonomic (poly)neuropathy (principal); N17.9 Acute kidney failure, unspecified; Z68.41 Body mass index [BMI] 40.0-44.9, adult; E83.42 Hypomagnesemia; I10 Essential (primary) hypertension; K31.84 Gastroparesis; Z79.4 Long term (current) use of insulin; I16.0 Hypertensive urgency; E87.6 Hypokalemia; Z98.42 Cataract extraction status, left eye; Z98.41 Cataract extraction status, right eye; Z90.49 Acquired absence of other specified parts of digestive tract; Z90.710 Acquired absence of both cervix and uterus; Z90.722 Acquired absence of ovaries, bilateral; Z88.8 Allergy status to other drugs, medicaments and biological substances; H40.9 Unspecified glaucoma; K21.9 Gastro-esophageal reflux disease without esophagitis; E66.01 Morbid (severe) obesity due to excess calories; E86.0 Dehydration
CPT/HCPCS: 36415; 36416; 80053; 80069; 83690; 83735; 85025; 96365; 96367; 96375; C9113; J0360; J1200; J1364; J2405; J2765; J3010; J3475; J3480; J7050; Q0162; S0028

== ENCOUNTER 2016-12-30 10:41 | Inpatient (IN) | payer OTHER, MEDICARE ==
[2016-12-30 11:38] LABS: #Lymphocytes 1.7 thou/uL (1.20-3.40); #Neutrophils 10.1 thou/uL (1.40-6.50); %Basophils 0.3 % (0.0-1.0); %Eosinophils 0.1 % (0.0-10.0); %Lymphocytes 13.3 % (21.0-51.0); %Monocytes 7.8 % (0.0-10.0); Hematocrit 36.2 % (36.0-47.0); Mean Platelet Volume 7.3 fL (7.4-10.4); Red Blood Cell (RBC) Count 3.95 mill/uL (4.20-5.40); White Blood Cell (WBC) Count 12.9 thou/uL (4.8-10.8)
[2016-12-30 12:13] LABS: Lactic Acid - Sepsis 2.6 mmol/L (0.5-2.2)
[2016-12-30 12:15] LABS: ALT (SGPT) 13 U/L (8-55); AST (SGOT) 20 U/L (5-34); Alkaline Phosphatase 111 U/L (40-150); Anion Gap 13 mmol/L (10-20); BUN (Urea Nitrogen) 20 mg/dL (9.8-20.1); Bilirubin, Total 1.6 mg/dL (0.2-1.2); CK (CPK) 65 U/L (29-168); Calc. Creatinine Clearance 0 mL/min (70-130); Calcium 9.1 mg/dL (7.8-10.44); Carbon Dioxide 32 mmol/L (23-31); Chloride 86 mmol/L (98-107); Estimated GFR-MDRD 26; Globulin 3.2 g/dL (2.4-3.5); Lipase 34 U/L (8-78); Protein, Total 6.6 g/dL (6.0-8.3)
[2016-12-30 12:16] LABS: Troponin I 0.049 ng/mL (< 0.028)
[2016-12-30 13:35] LABS: Bilirubin Small (Negative); Blood, Urine Negative (Negative); Glucose, Urine (Dipstick) 250 mg/dL (Negative); Ketone, Urine 15 mg/dL (Negative); Nitrite Negative (Negative); Protein, Urine (Dipstick) 300 mg/dL (Neg-Trace)
[2016-12-30 13:41] LABS: Bacteria/HPF None Seen HPF (None Seen); Hyaline Casts/LPF 0-3 HYALINE CAST LPF (0-3 Hyaline)
[2016-12-30 13:47] LABS: Renal Epithelial None Seen HPF (0-3); Transitional Epithelial NONE SEEN HPF (0-3)
[2016-12-30] MEDS ORDERED: Piperacillin/Tazobactam 4.5 GM VIAL ONE (13:48)
--- NOTE | 2016-12-30 13:50 | RAD ---
PORTABLE UPRIGHT FRONTAL CHEST RADIOGRAPH: Date: 12-30-16 Comparison: 12-07-14 History: Hypotension and weakness. FINDINGS: Inspiration is shallow. Heart and mediastinal contours are grossly unremarkable. No pneumothorax, lo bar consolidation, or alveolar edema. IMPRESSION: No acute findings. POS: [facility]
[2016-12-30] MEDS ORDERED: Ondansetron HCl/PF 4 MG/2 ML Vial ONE (15:18)
[2016-12-30] MEDS ORDERED: Diabetic Tussin 200 MG/10 ML UDCUP PO PRN (16:02)
[2016-12-30] MEDS ORDERED: Labetalol HCl 100 MG/20 ML VIAL SLOW IVP PRN (16:02)
[2016-12-30] MEDS ORDERED: Loperamide HCl 2 MG CAP PO PRN (16:02)
[2016-12-30] MEDS ORDERED: Milk Of Magnesia 30 ML UDCUP PO PRN (16:02)
[2016-12-30] MEDS ORDERED: Eucerin (Mineral Oil/Petrolatum,White) 30 gm Jar TOP PRN (16:02)
[2016-12-30] MEDS ORDERED: Nitroglycerin 0.4 MG TAB (25 Tab Bottle) SL PRN (16:02)
[2016-12-30] MEDS ORDERED: Sodium Chloride 0.65% Nasal 44 ML BOT EA NARE PRN (16:02)
[2016-12-30] MEDS ORDERED: Dextrose 50% Abboject 50 ML SYRINGE SLOW IVP PRN (16:02)
[2016-12-30] MEDS ORDERED: Artificial Tears 18 DROP/0.9 ML EA EYE PRN (16:02)
[2016-12-30] MEDS ORDERED: Senokot 8.6 MG TAB PO PRN (16:02)
[2016-12-30] MEDS ORDERED: Dextrose 5% in Water 1,000 ML IV PRN (16:02)
[2016-12-30] MEDS ORDERED: Loratadine 10 MG TAB PO PRN (16:02)
[2016-12-30] MEDS ORDERED: Zolpidem Tartrate 5 MG TAB PO PRN (16:02)
--- NOTE | 2016-12-30 16:03 | HP ---
PRIMARY CARE PHYSICIAN: Gabbie Bullock M.D. REASON FOR ADMISSION: Hypotension, abnormal electrolytes, lactic acidosis, urinary tract infection. HISTORY OF PRESENT ILLNESS: A 61-year-old female who had recently multiple admissions in our hospit al. She is keep coming in our emergency room with complaint of nausea and vomiting. She is sufferi ng from diabetes and gastroparesis. Her most recent admission in our hospital was on 12/23/2016. T he patient was treated for diabetes, gastroparesis, and she was discharged home on 12/28/2016. Toda y, the patient had regular followup visit with the primary care physician. During previous admissio n in our hospital, adding machine servicer was also following. When she saw Dr. Bullock today, the patien todd was feeling miserable. She was having very weakness, fell down and she was hypotensive. Her puls e was very difficult to read and that is why she was sent to the emergency room for evaluation. In the emergency room, her lowest blood pressure was 76/53. She was having nausea and vomiting. Sh efraín also had loose stool last night. The patient is taking Zofran and Reglan as prescribed. Despite that, the patient is not able to keep anything down after going home. The patient denies any cough. She denies any pleuritic chest pain. She denies any fever or chills at home. She denies any urin haresh tract infection symptoms, but her urinalysis was abnormal in the emergency room. The patient de nies any sick exposures. She denies any recent travel, but she required multiple hospitalizations r ecently. She denies any recent antibiotic exposure. She denies any recent Molina catheterization in hospital. When I saw this patient, the patient was having nausea. She was not able to keep anything down. Sh e was tachycardic as well as blood pressure started improving after IV fluid. Routine blood tests s howed hyponatremia, hypokalemia, acute kidney failure, elevated troponin, lactic acidosis, and findi ngs suggestive of urinary tract infection. The patient denies any melena or hematochezia. She denies any hematemesis. REVIEW OF SYSTEMS: The following complete review of systems was negative, unless otherwise mentione d in the HPI or below: Constitutional: Weight loss or gain, ability to conduct usual activities. Skin: Rash, itching. Eyes: Double vision, pain. ENT/Mouth: Nose bleeding, neck stiffness, pain, tenderness. Cardiovascular: Palpitations, dyspnea on exertion, orthopnea. Respiratory: Shortness of breath, wheezing, cough, hemoptysis, fever or night sweats. Gastrointestinal: Poor appetite, abdominal pain, heartburn, nausea, vomiting, constipation, or diar mayela. Genitourinary: Urgency, frequency, dysuria, nocturia. Musculoskeletal: Pain, swelling. Neurologic/Psychiatric: Anxiety, depression. Allergy/Immunologic: Skin rash, bleeding tendency. Please see my HPI for pertinent positives and negatives. All other review of system reviewed and ne gative except as mentioned in the HPI. PAST MEDICAL HISTORY: Morbid obesity, diabetes, type 2 diabetes, gastroparesis, hypertension, dysli pidemia, and glaucoma. PAST SURGICAL HISTORY: Bilateral cataract surgery, cholecystectomy, hysterectomy, bilateral salping o-oophorectomy, tonsillectomy, left foot surgery for Charcot foot. EMERGENCY ROOM COURSE: The patient has received vancomycin and Zosyn, IV fluid 2 liters and subsequ ently the patient received another 2 liters of IV fluid. CURRENT HOME MEDICATIONS: 1. The patient was discharged a couple of days ago from following medications: Amitriptyline 25 mg p.o. at bedtime, Lipitor 20 mg p.o. at bedtime, brimonidine with Timolol ophthalmic drops each eye q.12 hourly, glimepiride 2 mg p.o. daily, Lantus insulin 10 units subcutaneously twice daily, Xalata n eyedrops each eye at bedtime, lisinopril 40 mg p.o. daily, magnesium oxide 400 mg p.o. daily, Regl an 10 mg p.o. q.6 hourly p.r.n., Zofran 4 mg p.o. q.8 hourly p.r.n., Protonix 40 mg p.o. daily, Giana ctone 25 mg p.o. daily, and metformin 500 mg p.o. b.i.d. PAST PSYCHIATRIC HISTORY: Anxiety and depression. SOCIAL HISTORY: The patient is . Her is present at bedside in the emergency room. She currently denies any tobacco, alcohol or illicit drug abuse. ALLERGIES: PHENERGAN. FAMILY HISTORY: No strong family history of cancer, stroke, or coronary artery disease, but diabete s and hypertension runs among several family members. PHYSICAL EXAMINATION: VITAL SIGNS: On arrival, blood pressure 76/53, currently blood pressure improved to 121/70 after IV fluid, pulse 95, respiratory rate 16, temperature 98.3, saturation 96% on room air, weight 146.5 ki lograms. GENERAL: The patient is currently appears sick, no obvious acute distress. HEENT: Head: Normocephalic and atraumatic. Eyes: Pupils round and reactive to light. Extraocula r muscles are intact. ENT: Oropharynx within normal limits. Dry appearing mucous membranes. No o ral lesions. No pharyngeal erythema, no exudate. NECK: Supple. Range of motion is normal. No meningeal signs of irritation. LUNGS: Clear to auscultation without any rhonchi or rales. CARDIAC: S1, S2 regular. No murmur, no gallop, no rub. ABDOMEN: Soft, bowel sounds present, nontender, nondistended. No organomegaly, no mass, no suprapu bic tenderness. BACK: Unremarkable. No CVA tenderness. EXTREMITIES: Upper extremity passive movements of all joints are normal. Lower extremities: No ed alyson. Good peripheral pulsation. SKIN: No skin rash. HEMATOLOGICAL: No lymphadenopathy. SIGNIFICANT LABORATORY: 1. CBC: WBC 12.9, hemoglobin 12.2, and platelets 343. 2. BMP: Sodium 128, potassium 3.0, chloride 86, carbon dioxide 32, BUN 20, creatinine 1.96, glucos e 302, calcium 9.1, and lactic acid 2.6. 3. LFT: AST 20, ALT 13, alkaline phosphatase 111, albumin 3.4, CK 65, CK-MB 2.6, troponin I 0.049. Lipase 34. Urinalysis consistent with urinary tract infection. EKG showing normal sinus rhythm, prolonged QTC interval: ASSESSMENT AND PLAN: 1. Acute kidney failure, prerenal etiology secondary to persistent nausea and vomiting, unable to t olerate p.o. The patient will be given IV fluid with NS with KCl and we will repeat BMP tomorrow. We will avoid nephrotoxic agent. 2. Abnormal electrolytes, hyponatremia, hypochloremia, and hypokalemia. We will check magnesium an d phosphorus, and replace potassium with IV fluid and we will repeat BMP tomorrow. If magnesium and phosphorus is low, then we will replace magnesium and phosphorus as well. 3. Lactic acidosis may be related with underlying sepsis given hypotension or it could be related w ith metformin and poor perfusion from hypotension. At this point, the patient is started on broad s pectrum antibiotic therapy. We will repeat lactic acid again tomorrow. 4. Abnormal troponin, likely due to demand ischemia. This patient does not have any chest pain, do es not have any EKG changes. We will do 3 sets of cardiac enzymes to rule out acute coronary syndro me. 5. Urinary tract infection. We will continue with Rocephin 2 gram IV daily and Levaquin 500 mg IV daily. We will follow up on culture result and change antibiotic therapy accordingly. 6. Hypotension, likely rule out sepsis and the patient's hypotension improved with IV fluid. We wi ll monitor closely on telemetry floor. We will avoid antihypertensive medication for now because of low blood pressure. 7. Diabetes type 2, not well controlled. We will continue with aggressive scale insulin as per [facility] scale protocol. We will also continue with Lantus insulin 10 units subcutaneously b.i.d. We wi ll hold on metformin therapy. 8. Diabetic gastroparesis. The patient will be given Reglan 10 mg IV q.6 hourly and Zofran 4 mg q. 6 p.r.n. 9. Glaucoma. We will continue brimonidine and Timolol ophthalmic drops q.12 hourly along with Xala leonard eyedrops at bedtime as per home dosage. 10. Gastroesophageal reflux disease. We will continue Protonix 40 mg IV daily. 11. Dyslipidemia. We will continue Lipitor 20 mg p.o. at bedtime. 12. Anxiety and depression. We will continue amitriptyline 25 mg p.o. at bedtime. 13. Morbid obesity. Dietary education given, weight loss education given. 14. Deep venous thrombosis prophylaxis. Heparin 5000 units subcu twice daily. 15. Gastrointestinal prophylaxis. The patient is already on Protonix therapy. 16. Code status: The patient is FULL CODE. The patient's is surrogate decision maker. Disposition plan based on clinical course. We are expecting patient's stay in hospital more than 2 midnights. Plan of care discussed with the patient and at bedside in the emergency room.
[2016-12-30 16:52] LABS: Troponin I 0.045 ng/mL (< 0.028)
[2016-12-30] MEDS: Acetaminophen 325 MG TAB PO PRN (17:06)
[2016-12-30] MEDS: cefTRIAXone\\ROCEPHIN 1 GM in Sodium Chloride 0.9% 100 ML IVPB SCH (19:48)
[2016-12-30] MEDS: NS 0.9% w/ 40 MEQ KCL 1,000 ML IV SCH (21:09)
[2016-12-30] MEDS: Heparin 5,000 UNITS/ML VIAL SC SCH (21:10)
[2016-12-30] MEDS: HumaLOG 300 UNITS/3 ML VIAL SC PRN (21:11)
[2016-12-30] MEDS: Metoclopramide HCl 10 MG/2 ML VIAL IVP PRN (21:26)
[2016-12-31] MEDS: HYDROcodone/Acetaminophen 5/325 mg Tablet PO PRN (04:33)
[2016-12-31] MEDS: Ondansetron ODT 4 MG TAB PO PRN (04:33)
[2016-12-31 05:33] LABS: ALT (SGPT) 11 U/L (8-55); AST (SGOT) 20 U/L (5-34); Alkaline Phosphatase 83 U/L (40-150); Anion Gap 10 mmol/L (10-20); BUN (Urea Nitrogen) 14 mg/dL (9.8-20.1); Bilirubin, Total 1.2 mg/dL (0.2-1.2); Calc. Creatinine Clearance 77 mL/min (70-130); Calcium 8.3 mg/dL (7.8-10.44); Carbon Dioxide 33 mmol/L (23-31); Chloride 91 mmol/L (98-107); Estimated GFR-MDRD 43; Globulin 3.1 g/dL (2.4-3.5); Protein, Total 6.2 g/dL (6.0-8.3)
[2016-12-31 05:42] LABS: #Lymphocytes 1.6 thou/uL (1.20-3.40); #Monocytes 0.8 thou/uL (0.11-0.59); #Neutrophils 6.8 thou/uL (1.40-6.50); %Basophils 0.1 % (0.0-1.0); %Eosinophils 0.2 % (0.0-10.0); %Lymphocytes 17.4 % (21.0-51.0); %Monocytes 8.3 % (0.0-10.0); Hematocrit 31.6 % (36.0-47.0); Mean Platelet Volume 7.6 fL (7.4-10.4); Red Blood Cell (RBC) Count 3.45 mill/uL (4.20-5.40); White Blood Cell (WBC) Count 9.2 thou/uL (4.8-10.8)
[2016-12-31] MEDS ORDERED: Potassium Chloride 20 MEQ TAB PO SCH (06:00)
[2016-12-31] MEDS: Potassium Chloride 20 MEQ TAB PO SCH ×3 (08:03→17:36)
[2016-12-31] MEDS: Saccharomyces boulardii 250 MG CAP PO SCH (08:03)
[2016-12-31] MEDS: Heparin 5,000 UNITS/ML VIAL SC SCH ×2 (08:03→21:00)
[2016-12-31] MEDS: HumaLOG 300 UNITS/3 ML VIAL SC PRN ×3 (08:03→17:35)
[2016-12-31 09:09] LABS: Magnesium 1.1 mg/dL (1.6-2.6); Phosphorus 2.5 mg/dL (2.3-4.7)
[2016-12-31] MEDS ORDERED: Magnesium Sulfate 4 GM in Sodium Chloride 0.9% 250 ML 250 ML IVPB SCH (10:30)
--- NOTE | 2016-12-31 11:04 | PDOC.PN ---
- Subjective Encounter Start Date: 12/31/16 Encounter Start Time: 08:00 Patient seen and examined. No overnight events, has nausea, able to take some oral intake, no diarrhoea, no fever - Objective Resuscitation Status: Resuscitation Status FULL:Full Resuscitation MAR Reviewed: Yes Vital Signs & Weight: Vital Signs (12 hours) Temp Pulse Resp BP Pulse Ox 12/31/16 07:10 99.0 F 104 H 16 177/88 H 96 12/31/16 04:00 99.3 F 104 H 16 143/69 H 93 L 12/31/16 00:00 99.1 F 104 H 16 132/61 92 L Weight Admit Weight 231 lb 3.2 oz Weight 229 lb I&O: 12/30/16 12/31/16 01/01/17 06:59 06:59 06:59 Intake Total 720 Output Total 1500 Balance -780 Result Diagrams: 12/31/16 04:12 12/31/16 04:12 Additional Labs: Accuchecks 12/31/16 12/30/16 12/30/16 06:21 20:17 17:24 POC Glucose 158 H 266 H 191 H EKG Reviewed by me: Yes Phys Exam - Physical Examination Constitutional: NAD HEENT: PERRLA, moist MMs, sclera anicteric Neck: no JVD, supple Respiratory: no wheezing, no rales, no rhonchi Cardiovascular: RRR, no significant murmur, no rub Gastrointestinal: soft, non-tender, no distention, positive bowel sounds obesity+ Musculoskeletal: no edema, pulses present Neurological: non-focal, normal sensation, moves all 4 limbs Psychiatric: normal affect, A&O x 3 Skin: no rash, normal turgor Dx/Plan (1) Acute kidney failure Status: Acute (2) Dehydration Code(s): E86.0 - DEHYDRATION Status: Acute (3) Demand ischemia Code(s): I24.8 - OTHER FORMS OF ACUTE ISCHEMIC HEART DISEASE Status: Acute (4) Gastroparesis Code(s): K31.84 - GASTROPARESIS Status: Acute (5) Hypokalemia Code(s): E87.6 - HYPOKALEMIA Status: Acute (6) Hyponatremia Code(s): E87.1 - HYPO-OSMOLALITY AND HYPONATREMIA Status: Acute (7) Hypotension Status: Acute (8) Lactic acidosis Code(s): E87.2 - ACIDOSIS Status: Acute (9) UTI (urinary tract infection) Status: Acute (10) DM2 (diabetes mellitus, type 2) Status: Chronic Qualifiers: Comment: (11) Dyslipidemia Code(s): E78.5 - HYPERLIPIDEMIA, UNSPECIFIED Status: Chronic (12) HTN (hypertension) Code(s): I10 - ESSENTIAL (PRIMARY) HYPERTENSION Status: Chronic Qualifiers: Comment: (13) Morbid obesity with BMI of 40.0-44.9, adult Code(s): E66.01 - MORBID (SEVERE) OBESITY DUE TO EXCESS CALORIES; Z68.41 - BODY MASS INDEX (BMI) 40.0-44.9, ADULT Status: Chronic (14) Hypomagnesemia Code(s): E83.42 - HYPOMAGNESEMIA Status: Acute - Plan cont current plan of care, plan discussed w/ family * continue IVF with potassium, creatinine improving and dehydration getting better * today will replace potassium and magnesium * will monitor today and repeat labs tomorrow * continue levaquin * discussed with family * diet as tolerated * medication reviewed as below * symptomatic treatment. Review of Systems - Review of Systems Constitutional: negative: Fever, Chills, Sweats, Weakness, Malaise, Other ENT: negative: Ear Pain, Ear Discharge, Nose Pain, Nose Discharge, Nose Congestion, Mouth Pain, Mouth Swelling, Throat Pain, Throat Swelling, Other Respiratory: negative: Cough, Dry, Shortness of Breath, Hemoptysis, SOB with Excertion, Pleuritic Pain, Sputum, Wheezing Cardiovascular: negative: Chest Pain, Palpitations, Orthopnea, Paroxysmal Noc. Dyspnea, Edema, Light Headedness, Other Gastrointestinal: Nausea Genitourinary: negative: Dysuria, Frequency, Incontinence, Hematuria, Retention , Other Musculoskeletal: negative: Neck Pain, Shoulder Pain, Arm Pain, Back Pain, Hand Pain, Leg Pain, Foot Pain, Other - Medications/Allergies Allergies/Adverse Reactions: Allergies Allergy/AdvReac Type Severity Reaction Status Date / Time promethazine HCl Allergy Severe Verified 12/23/16 11:11 [From Phenergan] Medications: Current Medications Acetaminophen (Tylenol) 650 mg PO Q4H PRN PRN Reason: Headache/Fever or Pain Last Admin: 12/30/16 17:06 Dose: 650 mg Hydrocodone Bitart/Acetaminophen ([place] 5/325) 1 tab PO Q4H PRN PRN Reason: Moderate Pain (4-6) Last Admin: 12/31/16 04:33 Dose: 1 tab Al Hydroxide/Mg Hydroxide (Maalox) 30 ml PO Q6H PRN PRN Reason: Heartburn or Indigestion Artificial Tears (Tears Naturale) 0 drop EA EYE PRN PRN PRN Reason: Dry Eyes Dextrose/Water (Dextrose 50%) 25 gm SLOW IVP PRN PRN PRN Reason: Hypoglycemia Glucagon (Glucagon) 1 mg IM PRN PRN PRN Reason: Hypoglycemia Guaifenesin (Robitussin Sf) 200 mg PO Q4H PRN PRN Reason: Cough Heparin Sodium (Porcine) (Heparin) 5,000 units SC BID COUNTS INCLUDE 234 BEDS AT THE [facility] Last Admin: 12/31/16 08:03 Dose: 5,000 units Hydralazine HCl (Apresoline) 10 mg SLOW IVP Q4H PRN PRN Reason: Systolic BP > 180 Dextrose/Water (D5w) 1,000 mls @ 0 mls/hr IV .Q0M PRN; As Directed PRN Reason: Hypoglycemia Levofloxacin 500 mg/ Device 100 mls @ 100 mls/hr IVPB Q24HR COUNTS INCLUDE 234 BEDS AT THE [facility] Last Admin: 12/30/16 18:00 Dose: 100 mls Ceftriaxone Sodium 1 gm/ (Sodium Chloride) 100 mls @ 200 mls/hr IVPB 1700 COUNTS INCLUDE 234 BEDS AT THE [facility] Last Admin: 12/30/16 19:48 Dose: 100 mls Potassium Chloride/Sodium Chloride (Ns 0.9% W/ 40 Meq Kcl) 1,000 mls @ 70 mls/ hr IV .[id number] COUNTS INCLUDE 234 BEDS AT THE [facility] Last Admin: 12/30/16 21:09 Dose: 1,000 mls Magnesium Sulfate 4 gm/ Sodium (Chloride) 258 mls @ 86 mls/hr IVPB NOW COUNTS INCLUDE 234 BEDS AT THE [facility] Stop: 12/31/16 13:00 Last Admin: 12/31/16 10:53 Dose: 258 mls Insulin Human Lispro (Humalog) 0 units SC .AGGRESSIVE SLIDING PRN PRN Reason: Aggressive Correctional Scale Last Admin: 12/31/16 08:03 Dose: 3 unit Insulin Human Lispro (Humalog) 0 units SC .BEDTIME SLIDING SC PRN PRN Reason: Bedtime Correctional Scale Last Admin: 12/30/16 21:11 Dose: 3 unit Labetalol HCl (Normodyne) 20 mg SLOW IVP Q4H PRN PRN Reason: Systolic BP > 180 Loperamide HCl (Imodium) 2 mg PO PRN PRN PRN Reason: Diarrhea/Loose Stools Loratadine (Claritin) 10 mg PO DAILYPRN PRN PRN Reason: Sinus Symptoms Magnesium Hydroxide (Milk Of Magnesium) 30 ml PO DAILYPRN PRN PRN Reason: Constipation Metoclopramide HCl (Reglan) 10 mg IVP Q6H PRN PRN Reason: Nausea/Vomiting Last Admin: 12/30/16 21:26 Dose: 10 mg Mineral Oil/White Petrolatum (Eucerin Cream) 0 gm TOP BIDPRN PRN PRN Reason: Dry Skin Nitroglycerin (Nitrostat) 0.4 mg SL Q5MIN PRN PRN Reason: Chest Pain Ondansetron HCl (Zofran Odt) 4 mg PO Q6H PRN PRN Reason: Nausea/Vomiting Last Admin: 12/31/16 04:33 Dose: 4 mg Ondansetron HCl (Zofran) 4 mg IVP Q6H PRN PRN Reason: Nausea/Vomiting Pantoprazole Sodium (Protonix) 40 mg IVP 2100 PRASANNA Potassium Chloride (K-Dur) 40 meq PO TID-WM PRASANNA Last Admin: 12/31/16 08:03 Dose: 40 meq Saccharomyces Boulardii (Florastor) 250 mg PO DAILY PRASANNA Last Admin: 12/31/16 08:03 Dose: 250 mg Senna (Senokot) 2 tab PO HSPRN PRN PRN Reason: Constipation Sodium Chloride ([place] Nasal [place] 0.65%) 0 ml EA NARE QIDPRN PRN PRN Reason: Nasal Congestion Zolpidem Tartrate (Ambien) 5 mg PO HSPRN PRN PRN Reason: Insomnia
[2016-12-31] MEDS: NS 0.9% w/ 40 MEQ KCL 1,000 ML IV SCH (14:25)
[2016-12-31] MEDS: Ondansetron HCl/PF 4 MG/2 ML Vial IVP PRN (15:21)
[2016-12-31] MEDS: hydrALAZINE 20 MG/ML VIAL SLOW IVP PRN (15:29)
[2016-12-31] MEDS: cefTRIAXone\\ROCEPHIN 1 GM in Sodium Chloride 0.9% 100 ML IVPB SCH (17:35)
[2016-12-31] MEDS: Mag-Al 1200 mg/1200 mg/30 ML UDCUP PO PRN (20:59)
[2016-12-31] MEDS ORDERED: Pantoprazole 40 MG VIAL IVP SCH (21:00)
[2016-12-31] MEDS: Metoclopramide HCl 10 MG/2 ML VIAL IVP PRN (21:06)
[2017-01-01] MEDS: Ondansetron HCl/PF 4 MG/2 ML Vial IVP PRN (03:30)
[2017-01-01] MEDS: NS 0.9% w/ 40 MEQ KCL 1,000 ML IV SCH ×2 (05:51→08:47)
[2017-01-01 05:56] LABS: #Lymphocytes 1.4 thou/uL (1.20-3.40); #Monocytes 0.7 thou/uL (0.11-0.59); #Neutrophils 6.6 thou/uL (1.40-6.50); %Basophils 0.1 % (0.0-1.0); %Eosinophils 0.3 % (0.0-10.0); %Lymphocytes 15.8 % (21.0-51.0); Hematocrit 37.7 % (36.0-47.0); Mean Platelet Volume 7.9 fL (7.4-10.4); Red Blood Cell (RBC) Count 4.09 mill/uL (4.20-5.40); White Blood Cell (WBC) Count 8.7 thou/uL (4.8-10.8)
[2017-01-01 06:51] LABS: Anion Gap 13 mmol/L (10-20); BUN (Urea Nitrogen) 8 mg/dL (9.8-20.1); Calc. Creatinine Clearance 113 mL/min (70-130); Calcium 8.9 mg/dL (7.8-10.44); Carbon Dioxide 24 mmol/L (23-31); Chloride 94 mmol/L (98-107); Estimated GFR-MDRD 68; Magnesium 1.4 mg/dL (1.6-2.6)
[2017-01-01] MEDS: HumaLOG 300 UNITS/3 ML VIAL SC PRN ×3 (08:06→20:49)
[2017-01-01] MEDS: Heparin 5,000 UNITS/ML VIAL SC SCH ×2 (08:07→20:44)
[2017-01-01] MEDS: Saccharomyces boulardii 250 MG CAP PO SCH (08:08)
[2017-01-01] MEDS: Potassium Chloride 20 MEQ TAB PO SCH (08:08)
[2017-01-01] MEDS: HYDROcodone/Acetaminophen 5/325 mg Tablet PO PRN (08:10)
[2017-01-01] MEDS ORDERED: Magnesium Sulfate 4 GM, Admixture Fee 1 EACH in Sodium Chloride 0.9% 250 ML 250 ML IVPB SCH (08:30)
[2017-01-01] MEDS: Lisinopril 20 MG TAB PO SCH (08:56)
[2017-01-01] MEDS: Spironolactone 25 MG TAB PO SCH (08:56)
[2017-01-01] MEDS: Magnesium Oxide 400 MG TAB PO SCH (08:56)
[2017-01-01] MEDS: Timolol 0.5% Ophth Soln 5 ml Bottle EA EYE SCH ×2 (09:00→23:37)
[2017-01-01] MEDS: Brimonidine Tartrate 0.2% Ophth Soln 5 ml Bottle EA EYE SCH ×2 (09:00→23:37)
--- NOTE | 2017-01-01 10:11 | PDOC.PN ---
- Subjective Encounter Start Date: 01/01/17 Encounter Start Time: 08:00 pt is feeling better today, she ate her breakfast, ambulating, no fever - Objective Resuscitation Status: Resuscitation Status FULL:Full Resuscitation MAR Reviewed: Yes Vital Signs & Weight: Vital Signs (12 hours) Temp Pulse Resp BP BP Pulse Ox 01/01/17 09:00 179/86 H 01/01/17 08:56 179/86 H 01/01/17 08:00 99.7 F H 113 H 18 179/86 H 95 01/01/17 04:00 98.8 F 109 H 20 178/85 H 99 Weight Admit Weight 231 lb 3.2 oz Weight 226 lb 6.4 oz I&O: 12/31/16 01/01/17 01/02/17 06:59 06:59 06:59 Intake Total 720 3128 Output Total 1500 900 Balance -780 2228 Result Diagrams: 01/01/17 05:19 01/01/17 05:19 Additional Labs: Accuchecks 01/01/17 12/31/16 12/31/16 05:50 20:03 16:35 POC Glucose 182 H 169 H 200 H 12/31/16 11:20 POC Glucose 198 H EKG Reviewed by me: Yes Phys Exam - Physical Examination Constitutional: NAD HEENT: PERRLA, moist MMs, sclera anicteric Neck: no JVD, supple Respiratory: no wheezing, no rales, no rhonchi Cardiovascular: RRR, no significant murmur, no rub Gastrointestinal: soft, non-tender, no distention, positive bowel sounds Musculoskeletal: no edema, pulses present Neurological: non-focal, normal sensation, moves all 4 limbs Psychiatric: normal affect, A&O x 3 Skin: no rash, normal turgor Dx/Plan (1) Acute kidney failure Status: Resolved (2) Dehydration Code(s): E86.0 - DEHYDRATION Status: Resolved (3) Demand ischemia Code(s): I24.8 - OTHER FORMS OF ACUTE ISCHEMIC HEART DISEASE Status: Acute (4) Gastroparesis Code(s): K31.84 - GASTROPARESIS Status: Chronic (5) Hypokalemia Code(s): E87.6 - HYPOKALEMIA Status: Resolved (6) Hyponatremia Code(s): E87.1 - HYPO-OSMOLALITY AND HYPONATREMIA Status: Acute (7) Hypotension Status: Resolved (8) Lactic acidosis Code(s): E87.2 - ACIDOSIS Status: Resolved (9) UTI (urinary tract infection) Status: Acute Qualifiers: Urinary tract infection type: acute cystitis Hematuria presence: without hematuria Qualified Code(s): N30.00 - Acute cystitis without hematuria (10) DM2 (diabetes mellitus, type 2) Status: Chronic Qualifiers: Comment: (11) Dyslipidemia Code(s): E78.5 - HYPERLIPIDEMIA, UNSPECIFIED Status: Chronic (12) HTN (hypertension) Code(s): I10 - ESSENTIAL (PRIMARY) HYPERTENSION Status: Chronic Qualifiers: Comment: (13) Morbid obesity with BMI of 40.0-44.9, adult Code(s): E66.01 - MORBID (SEVERE) OBESITY DUE TO EXCESS CALORIES; Z68.41 - BODY MASS INDEX (BMI) 40.0-44.9, ADULT Status: Chronic (14) Hypomagnesemia Code(s): E83.42 - HYPOMAGNESEMIA Status: Acute - Plan cont current plan of care, plan discussed w/ family * today will replace magnesium * start her oral home medication * continue levaquin, DC rocephin * change protonix PO * continue reglan * DC tele and transfer to medical * expecting discharge tomorrow, on po levaquin for 5 days * medication reviewed as below * symptomatic treatment * reduce IVF . Review of Systems - Review of Systems Constitutional: negative: Fever, Chills, Sweats, Weakness, Malaise, Other Respiratory: negative: Cough, Dry, Shortness of Breath, Hemoptysis, SOB with Excertion, Pleuritic Pain, Sputum, Wheezing Cardiovascular: negative: Chest Pain, Palpitations, Orthopnea, Paroxysmal Noc. Dyspnea, Edema, Light Headedness, Other Gastrointestinal: negative: Nausea, Vomiting, Abdominal Pain, Diarrhea, Constipation, Melena, Hematochezia, Other Genitourinary: negative: Dysuria, Frequency, Incontinence, Hematuria, Retention , Other Musculoskeletal: negative: Neck Pain, Shoulder Pain, Arm Pain, Back Pain, Hand Pain, Leg Pain, Foot Pain, Other Skin: negative: Rash, Lesions, [place], Bruising, Other - Medications/Allergies Allergies/Adverse Reactions: Allergies Allergy/AdvReac Type Severity Reaction Status Date / Time promethazine HCl Allergy Severe Verified 12/23/16 11:11 [From Phenergan] Medications: Current Medications Acetaminophen (Tylenol) 650 mg PO Q4H PRN PRN Reason: Headache/Fever or Pain Last Admin: 12/30/16 17:06 Dose: 650 mg Hydrocodone Bitart/Acetaminophen ([place] 5/325) 1 tab PO Q4H PRN PRN Reason: Moderate Pain (4-6) Last Admin: 01/01/17 08:10 Dose: 1 tab Al Hydroxide/Mg Hydroxide (Maalox) 30 ml PO Q6H PRN PRN Reason: Heartburn or Indigestion Last Admin: 12/31/16 20:59 Dose: 30 ml Amitriptyline HCl (Elavil) 25 mg PO HS [facility] Artificial Tears (Tears Naturale) 0 drop EA EYE PRN PRN PRN Reason: Dry Eyes Atorvastatin Calcium (Lipitor) 20 mg PO HS PRASANNA Brimonidine Tartrate (Alphagan 0.2% Ophth Soln) 1 drop EA EYE Q12HR [facility] Last Admin: 01/01/17 09:00 Dose: Not Given Dextrose/Water (Dextrose 50%) 25 gm SLOW IVP PRN PRN PRN Reason: Hypoglycemia Glimepiride (Amaryl) 2 mg PO QAM-WM [facility] Glucagon (Glucagon) 1 mg IM PRN PRN PRN Reason: Hypoglycemia Guaifenesin (Robitussin Sf) 200 mg PO Q4H PRN PRN Reason: Cough Heparin Sodium (Porcine) (Heparin) 5,000 units SC BID [facility] Last Admin: 01/01/17 08:07 Dose: 5,000 units Hydralazine HCl (Apresoline) 10 mg SLOW IVP Q4H PRN PRN Reason: Systolic BP > 180 Last Admin: 12/31/16 15:29 Dose: 10 mg Dextrose/Water (D5w) 1,000 mls @ 0 mls/hr IV .Q0M PRN; As Directed PRN Reason: Hypoglycemia Levofloxacin 500 mg/ Device 100 mls @ 100 mls/hr IVPB Q24HR [facility] Last Admin: 12/31/16 14:30 Dose: 100 mls Magnesium Sulfate 4 gm/Miscellaneous Medication 1 each/ Sodium Chloride 258 mls @ 86 mls/hr IVPB ONE [facility] Stop: 01/01/17 11:00 Insulin Detemir 15 units/ (Miscellaneous Medication) 0.15 mls @ 0 mls/hr SC HS [facility] Insulin Detemir 15 units/ (Miscellaneous Medication) 0.15 mls @ 0 mls/hr SC QAM [facility] Potassium Chloride/Sodium Chloride (Ns 0.9% W/ 40 Meq Kcl) 1,000 mls @ 50 mls/ hr IV .Q20H [facility] Last Admin: 01/01/17 08:47 Dose: Not Given Insulin Human Lispro (Humalog) 0 units SC .AGGRESSIVE SLIDING PRN PRN Reason: Aggressive Correctional Scale Last Admin: 01/01/17 08:06 Dose: 3 unit Insulin Human Lispro (Humalog) 0 units SC .BEDTIME SLIDING SC PRN PRN Reason: Bedtime Correctional Scale Last Admin: 12/30/16 21:11 Dose: 3 unit Labetalol HCl (Normodyne) 20 mg SLOW IVP Q4H PRN PRN Reason: Systolic BP > 180 Latanoprost (Xalatan 0.005% Ophth Soln) 1 drop EA EYE [facility] Lisinopril (Zestril) 40 mg PO DAILY [facility] Last Admin: 01/01/17 08:56 Dose: 40 mg Loperamide HCl (Imodium) 2 mg PO PRN PRN PRN Reason: Diarrhea/Loose Stools Loratadine (Claritin) 10 mg PO DAILYPRN PRN PRN Reason: Sinus Symptoms Magnesium Hydroxide (Milk Of Magnesium) 30 ml PO DAILYPRN PRN PRN Reason: Constipation Magnesium Oxide (Magnesium Oxide) 400 mg PO DAILY [facility] Last Admin: 01/01/17 08:56 Dose: 400 mg Metformin HCl (Glucophage) 500 mg PO BID[facility] Metoclopramide HCl (Reglan) 10 mg IVP Q6H PRN PRN Reason: Nausea/Vomiting Last Admin: 12/31/16 21:06 Dose: 10 mg Mineral Oil/White Petrolatum (Eucerin Cream) 0 gm TOP BIDPRN PRN PRN Reason: Dry Skin Nitroglycerin (Nitrostat) 0.4 mg SL Q5MIN PRN PRN Reason: Chest Pain Ondansetron HCl (Zofran Odt) 4 mg PO Q6H PRN PRN Reason: Nausea/Vomiting Last Admin: 12/31/16 04:33 Dose: 4 mg Ondansetron HCl (Zofran) 4 mg IVP Q6H PRN PRN Reason: Nausea/Vomiting Last Admin: 01/01/17 03:30 Dose: 4 mg Pantoprazole Sodium (Protonix) 40 mg PO DAILY [facility] Last Admin: 01/01/17 08:57 Dose: 40 mg Saccharomyces Boulardii (Florastor) 250 mg PO DAILY [facility] Last Admin: 01/01/17 08:08 Dose: 250 mg Senna (Senokot) 2 tab PO HSPRN PRN PRN Reason: Constipation Sodium Chloride ([place] Nasal [place] 0.65%) 0 ml EA NARE QIDPRN PRN PRN Reason: Nasal Congestion Sodium Chloride (Flush - Normal Saline) 10 ml IVF Q12HR [facility] Last Admin: 01/01/17 08:48 Dose: Not Given Sodium Chloride (Flush - Normal Saline) 10 ml IVF PRN PRN PRN Reason: Saline Flush Spironolactone (Aldactone) 25 mg PO DAILY [facility] Last Admin: 01/01/17 08:56 Dose: 25 mg Timolol Maleate (Timoptic 0.5% Oph Soln) 1 drop EA EYE Q12HR [facility] Last Admin: 01/01/17 09:00 Dose: Not Given Zolpidem Tartrate (Ambien) 5 mg PO HSPRN PRN PRN Reason: Insomnia
[2017-01-01] MEDS: Insulin Detemir 100 UNITS/ML 15 UNITS in Pre-Filled Syringe 1 EACH SC SCH ×2 (10:30→20:46)
--- NOTE | 2017-01-01 14:48 | EKG ---
Test Reason : Blood Pressure : / mmHG Vent. Rate : 100 BPM Atrial Rate : 100 BPM P-R Int : 154 ms QRS Dur : 086 ms QT Int : 386 ms P-R-T Axes : 009 -05 032 degrees QTc Int : 497 ms Normal sinus rhythm Prolonged QT Abnormal ECG Confirmed by FERCHO ANTOINE, JONE Dueñas ([id number]), cmo KISHAN PACK ([id number]) on 01/01/2017 2:48:36 PM Referred By: VERA Confirmed By:JONE BRANTLEY MD
[2017-01-01] MEDS: metFORMIN 500 MG TAB PO SCH (17:34)
[2017-01-01] MEDS: Atorvastatin Calcium 20 MG TAB PO SCH (20:44)
[2017-01-01] MEDS: Amitriptyline HCl 25 MG TAB PO SCH (20:45)
[2017-01-01] MEDS: Latanoprost 0.005% Ophth Soln 2.5 ml Bottle EA EYE SCH (20:58)
[2017-01-02] MEDS: Ondansetron HCl/PF 4 MG/2 ML Vial IVP PRN ×2 (01:36→22:34)
[2017-01-02] MEDS: Metoclopramide HCl 10 MG/2 ML VIAL IVP PRN (04:15)
[2017-01-02] MEDS: NS 0.9% w/ 40 MEQ KCL 1,000 ML IV SCH (04:24)
--- NOTE | 2017-01-02 07:23 | PDOC.PN ---
- Subjective Encounter Start Date: 01/02/17 Encounter Start Time: 07:20 Subjective: No fevers this AM -: Generalized weakness -: No cp/sob - Objective Resuscitation Status: Resuscitation Status FULL:Full Resuscitation MAR Reviewed: Yes Vital Signs & Weight: Vital Signs (12 hours) Temp Pulse Resp BP BP BP Pulse Ox 01/02/17 04:00 111 H 18 141/63 H 98 01/02/17 00:25 98.8 F 96 18 141/66 H 97 01/01/17 23:37 90 115/59 L 01/01/17 19:44 98.9 F 90 20 99 01/01/17 19:40 98.9 F 90 20 115/59 L 99 Weight Admit Weight 231 lb 3.2 oz Weight 226 lb 6.4 oz I&O: 01/01/17 01/02/17 01/03/17 06:59 06:59 06:59 Intake Total 3128 1220 Output Total 900 Balance 2228 1220 Result Diagrams: 01/01/17 05:19 01/01/17 05:19 Additional Labs: Accuchecks 01/02/17 01/01/17 01/01/17 05:42 20:42 16:27 POC Glucose 146 H 217 H 146 H 01/01/17 10:55 POC Glucose 210 H Phys Exam - Physical Examination Constitutional: NAD HEENT: PERRLA, moist MMs Neck: no nodes, no JVD Respiratory: no wheezing, no rales, no rhonchi, clear to auscultation bilateral Cardiovascular: RRR, no significant murmur Gastrointestinal: soft, non-tender, positive bowel sounds Musculoskeletal: pulses present Neurological: non-focal, moves all 4 limbs Psychiatric: normal affect Skin: no rash, normal turgor Dx/Plan (1) Demand ischemia Code(s): I24.8 - OTHER FORMS OF ACUTE ISCHEMIC HEART DISEASE Status: Acute (2) Hypomagnesemia Code(s): E83.42 - HYPOMAGNESEMIA Status: Acute (3) Hyponatremia Code(s): E87.1 - HYPO-OSMOLALITY AND HYPONATREMIA Status: Acute (4) UTI (urinary tract infection) Status: Acute Qualifiers: Urinary tract infection type: acute cystitis Hematuria presence: without hematuria Qualified Code(s): N30.00 - Acute cystitis without hematuria (5) DM2 (diabetes mellitus, type 2) Status: Chronic Qualifiers: Comment: (6) Gastroparesis Code(s): K31.84 - GASTROPARESIS Status: Chronic (7) HTN (hypertension) Code(s): I10 - ESSENTIAL (PRIMARY) HYPERTENSION Status: Chronic Qualifiers: Comment: (8) Morbid obesity with BMI of 40.0-44.9, adult Code(s): E66.01 - MORBID (SEVERE) OBESITY DUE TO EXCESS CALORIES; Z68.41 - BODY MASS INDEX (BMI) 40.0-44.9, ADULT Status: Chronic (9) Acute kidney failure Status: Resolved (10) Lactic acidosis Code(s): E87.2 - ACIDOSIS Status: Resolved - Plan UTI and Diabetic Gastroparesis Exacerbation with Nausea,Vomiting and Dehydration resulting in Hypotension and JOSE * continue Levaquin * continue IVFs * check labs in AM Demand Ischemia with elevated troponin * no chest pain * no events while on telemetry Hypomagnesemia * continue Mg PO daily * check Mg in AM Hyponatremia * check Na in AM Physical Debility * Fall precautions * consult PT Dispo: Continue inpt.
[2017-01-02] MEDS: Glimepiride 2 MG TAB PO SCH (08:52)
[2017-01-02] MEDS: metFORMIN 500 MG TAB PO SCH ×2 (08:53→18:15)
[2017-01-02] MEDS: Lisinopril 20 MG TAB PO SCH (08:56)
[2017-01-02] MEDS: Saccharomyces boulardii 250 MG CAP PO SCH (08:57)
[2017-01-02] MEDS: Spironolactone 25 MG TAB PO SCH (08:58)
[2017-01-02] MEDS: Timolol 0.5% Ophth Soln 5 ml Bottle EA EYE SCH ×2 (09:01→20:16)
[2017-01-02] MEDS: Insulin Detemir 100 UNITS/ML 15 UNITS in Pre-Filled Syringe 1 EACH SC SCH ×2 (09:02→20:10)
[2017-01-02] MEDS: Magnesium Oxide 400 MG TAB PO SCH (09:11)
[2017-01-02] MEDS: Brimonidine Tartrate 0.2% Ophth Soln 5 ml Bottle EA EYE SCH ×2 (09:12→20:13)
[2017-01-02] MEDS: Heparin 5,000 UNITS/ML VIAL SC SCH ×2 (09:13→20:12)
[2017-01-02] MEDS: HumaLOG 300 UNITS/3 ML VIAL SC PRN (12:05)
[2017-01-02] MEDS: Latanoprost 0.005% Ophth Soln 2.5 ml Bottle EA EYE SCH (20:13)
[2017-01-02] MEDS: Atorvastatin Calcium 20 MG TAB PO SCH (20:14)
[2017-01-02] MEDS: Amitriptyline HCl 25 MG TAB PO SCH (20:14)
[2017-01-03] MEDS: Mag-Al 1200 mg/1200 mg/30 ML UDCUP PO PRN (01:44)
[2017-01-03] MEDS: NS 0.9% w/ 40 MEQ KCL 1,000 ML IV SCH (01:48)
[2017-01-03 04:15] LABS: #Lymphocytes 1.7 thou/uL (1.20-3.40); #Monocytes 0.5 thou/uL (0.11-0.59); #Neutrophils 5.6 thou/uL (1.40-6.50); %Basophils 0.4 % (0.0-1.0); %Eosinophils 0.6 % (0.0-10.0); %Lymphocytes 21.5 % (21.0-51.0); %Monocytes 6.8 % (0.0-10.0); Hematocrit 31.5 % (36.0-47.0); Mean Platelet Volume 7.8 fL (7.4-10.4); Red Blood Cell (RBC) Count 3.39 mill/uL (4.20-5.40); White Blood Cell (WBC) Count 7.9 thou/uL (4.8-10.8)
[2017-01-03 04:32] LABS: Anion Gap 10 mmol/L (10-20); BUN (Urea Nitrogen) 13 mg/dL (9.8-20.1); Calc. Creatinine Clearance 94 mL/min (70-130); Calcium 8.9 mg/dL (7.8-10.44); Carbon Dioxide 27 mmol/L (23-31); Chloride 97 mmol/L (98-107); Estimated GFR-MDRD 55; Magnesium 1.1 mg/dL (1.6-2.6)
[2017-01-03] MEDS: hydrALAZINE 20 MG/ML VIAL SLOW IVP PRN (04:55)
--- NOTE | 2017-01-03 07:17 | PDOC.PN ---
- Subjective Encounter Start Date: 01/03/17 Encounter Start Time: 07:14 Subjective: No lightheadedness -: No dry mouth -: No GALVAN/cp/sob/f/c - Objective Resuscitation Status: Resuscitation Status FULL:Full Resuscitation MAR Reviewed: Yes Vital Signs & Weight: Vital Signs (12 hours) Temp Pulse Resp BP BP BP BP 01/03/17 05:29 129 H 168/80 H 01/03/17 05:00 186/86 H 01/03/17 04:55 111 H 186/86 H 01/03/17 04:00 99.3 F 108 H 16 192/96 H 01/03/17 01:40 98.8 F 111 H 16 150/65 H 01/02/17 20:16 100 124/69 01/02/17 20:00 99.2 F 100 18 124/69 Pulse Ox 01/03/17 05:29 01/03/17 05:00 01/03/17 04:55 01/03/17 04:00 96 01/03/17 01:40 97 01/02/17 20:16 01/02/17 20:00 97 Weight Admit Weight 231 lb 3.2 oz Weight 227 lb I&O: 01/02/17 01/03/17 01/04/17 06:59 06:59 06:59 Intake Total 1220 1260 Balance 1220 1260 Result Diagrams: 01/03/17 03:32 01/03/17 03:32 Additional Labs: Accuchecks 01/03/17 01/02/17 01/02/17 04:47 20:05 16:20 POC Glucose 120 H 123 H 132 H 01/02/17 11:27 POC Glucose 187 H Phys Exam - Physical Examination Constitutional: NAD HEENT: PERRLA, moist MMs Neck: no nodes, no JVD Respiratory: no wheezing, no rales, no rhonchi Cardiovascular: RRR, no significant murmur Gastrointestinal: soft, non-tender, positive bowel sounds Neurological: non-focal, moves all 4 limbs Psychiatric: normal affect Skin: no rash, normal turgor Dx/Plan (1) Demand ischemia Code(s): I24.8 - OTHER FORMS OF ACUTE ISCHEMIC HEART DISEASE Status: Acute (2) Hypomagnesemia Code(s): E83.42 - HYPOMAGNESEMIA Status: Acute (3) Hyponatremia Code(s): E87.1 - HYPO-OSMOLALITY AND HYPONATREMIA Status: Acute (4) UTI (urinary tract infection) Status: Acute Qualifiers: Urinary tract infection type: acute cystitis Hematuria presence: without hematuria Qualified Code(s): N30.00 - Acute cystitis without hematuria (5) DM2 (diabetes mellitus, type 2) Status: Chronic Qualifiers: Comment: (6) Gastroparesis Code(s): K31.84 - GASTROPARESIS Status: Chronic (7) HTN (hypertension) Code(s): I10 - ESSENTIAL (PRIMARY) HYPERTENSION Status: Chronic Qualifiers: Comment: (8) Morbid obesity with BMI of 40.0-44.9, adult Code(s): E66.01 - MORBID (SEVERE) OBESITY DUE TO EXCESS CALORIES; Z68.41 - BODY MASS INDEX (BMI) 40.0-44.9, ADULT Status: Chronic (9) Acute kidney failure Status: Resolved (10) Lactic acidosis Code(s): E87.2 - ACIDOSIS Status: Resolved - Plan UTI (Group B Strep agalactiae) and Diabetic Gastroparesis Exacerbation with Nausea,Vomiting and Dehydration resulting in Hypotension and JOSE * continue Levaquin * stop IVFs * check labs in AM Demand Ischemia with elevated troponin * no chest pain * no events while on telemetry Hypomagnesemia * very low today - will give 4g MgSO4 IV to prevent cardiac arrhythmias * increase Mg PO to 400mg BID * check Mg in AM Hyponatremia * check Na in AM Physical Debility * Fall precautions * consult PT HTN * stop IVFs * monitor BP and HR Dispo: Continue inpt. Hopefully home tomorrow.
[2017-01-03] MEDS ORDERED: Magnesium Sulfate 4 GM, Admixture Fee 1 EACH in Sodium Chloride 0.9% 250 ML 250 ML IVPB SCH (07:30)
[2017-01-03] MEDS ORDERED: Magnesium 2 GM/NS 0.9% 100 ML 4 GM in Premix Bag 1 BAG IVPB SCH (07:30)
[2017-01-03] MEDS: Magnesium Oxide 400 MG TAB PO SCH ×2 (09:00→20:20)
[2017-01-03] MEDS ORDERED: Amlodipine 5 MG TAB PO SCH (09:00)
[2017-01-03] MEDS: Spironolactone 25 MG TAB PO SCH (09:01)
[2017-01-03] MEDS: Saccharomyces boulardii 250 MG CAP PO SCH (09:01)
[2017-01-03] MEDS: metFORMIN 500 MG TAB PO SCH ×2 (09:01→17:00)
[2017-01-03] MEDS: Lisinopril 20 MG TAB PO SCH (09:01)
[2017-01-03] MEDS: Glimepiride 2 MG TAB PO SCH (09:01)
[2017-01-03] MEDS: Timolol 0.5% Ophth Soln 5 ml Bottle EA EYE SCH ×2 (09:02→20:20)
[2017-01-03] MEDS: Brimonidine Tartrate 0.2% Ophth Soln 5 ml Bottle EA EYE SCH ×2 (09:03→20:19)
[2017-01-03] MEDS: Heparin 5,000 UNITS/ML VIAL SC SCH ×2 (09:04→20:18)
[2017-01-03] MEDS: Insulin Detemir 100 UNITS/ML 15 UNITS in Pre-Filled Syringe 1 EACH SC SCH ×2 (09:04→20:18)
[2017-01-03] MEDS: HumaLOG 300 UNITS/3 ML VIAL SC PRN (12:07)
[2017-01-03] MEDS: Amitriptyline HCl 25 MG TAB PO SCH (20:19)
[2017-01-03] MEDS: Atorvastatin Calcium 20 MG TAB PO SCH (20:20)
[2017-01-03] MEDS: Latanoprost 0.005% Ophth Soln 2.5 ml Bottle EA EYE SCH (20:20)
[2017-01-04 03:52] LABS: #Eosinphils 0.1 thou/uL (0.0-0.7); #Lymphocytes 1.6 thou/uL (1.20-3.40); #Monocytes 0.5 thou/uL (0.11-0.59); #Neutrophils 5.1 thou/uL (1.40-6.50); %Basophils 0.3 % (0.0-1.0); %Eosinophils 0.8 % (0.0-10.0); %Lymphocytes 21.5 % (21.0-51.0); %Monocytes 6.9 % (0.0-10.0); Hematocrit 31.6 % (36.0-47.0); Mean Platelet Volume 7.3 fL (7.4-10.4); White Blood Cell (WBC) Count 7.2 thou/uL (4.8-10.8)
[2017-01-04] MEDS: Ondansetron HCl/PF 4 MG/2 ML Vial IVP PRN ×2 (03:58→20:52)
[2017-01-04] MEDS: Mag-Al 1200 mg/1200 mg/30 ML UDCUP PO PRN (03:58)
[2017-01-04 04:03] LABS: Anion Gap 10 mmol/L (10-20); BUN (Urea Nitrogen) 14 mg/dL (9.8-20.1); Calc. Creatinine Clearance 91 mL/min (70-130); Calcium 8.9 mg/dL (7.8-10.44); Carbon Dioxide 27 mmol/L (23-31); Chloride 97 mmol/L (98-107); Estimated GFR-MDRD 53; Magnesium 1.5 mg/dL (1.6-2.6)
[2017-01-04] MEDS: Ondansetron ODT 4 MG TAB PO PRN ×2 (04:04→16:04)
[2017-01-04] MEDS: hydrALAZINE 20 MG/ML VIAL SLOW IVP PRN (04:46)
[2017-01-04] MEDS: HumaLOG 300 UNITS/3 ML VIAL SC PRN ×2 (06:59→12:02)
--- NOTE | 2017-01-04 07:15 | PDOC.PN ---
- Subjective Encounter Start Date: 01/04/17 Encounter Start Time: 07:14 Subjective: No cp/sob/f/c/n/v/abdominal pain - Objective Resuscitation Status: Resuscitation Status FULL:Full Resuscitation MAR Reviewed: Yes Vital Signs & Weight: Vital Signs (12 hours) Temp Pulse Resp BP BP BP Pulse Ox 01/04/17 06:15 110 H 140/69 01/04/17 04:46 101 H 189/96 H 01/04/17 03:55 99.2 F 101 H 18 189/96 H 97 01/03/17 20:20 108 H 116/62 01/03/17 20:00 98.8 F 108 H 16 116/62 98 Weight Admit Weight 231 lb 3.2 oz Weight 228 lb 8 oz I&O: 01/03/17 01/04/17 01/05/17 06:59 06:59 06:59 Intake Total 1260 560 Balance 1260 560 Result Diagrams: 01/04/17 03:34 01/04/17 03:34 Additional Labs: Accuchecks 01/04/17 01/03/17 01/03/17 06:47 20:09 11:37 POC Glucose 187 H 154 H 160 H Phys Exam - Physical Examination Constitutional: NAD HEENT: PERRLA, moist MMs Neck: no nodes, no JVD Respiratory: no wheezing, no rales, clear to auscultation bilateral Cardiovascular: RRR, no significant murmur Gastrointestinal: soft, non-tender, positive bowel sounds Neurological: non-focal, moves all 4 limbs Psychiatric: normal affect Skin: no rash, normal turgor Dx/Plan (1) Demand ischemia Code(s): I24.8 - OTHER FORMS OF ACUTE ISCHEMIC HEART DISEASE Status: Acute (2) Hypomagnesemia Code(s): E83.42 - HYPOMAGNESEMIA Status: Acute (3) Hyponatremia Code(s): E87.1 - HYPO-OSMOLALITY AND HYPONATREMIA Status: Acute (4) UTI (urinary tract infection) Status: Acute Qualifiers: Urinary tract infection type: acute cystitis Hematuria presence: without hematuria Qualified Code(s): N30.00 - Acute cystitis without hematuria (5) DM2 (diabetes mellitus, type 2) Status: Chronic Qualifiers: Comment: (6) Gastroparesis Code(s): K31.84 - GASTROPARESIS Status: Chronic (7) HTN (hypertension) Code(s): I10 - ESSENTIAL (PRIMARY) HYPERTENSION Status: Chronic Qualifiers: Comment: (8) Morbid obesity with BMI of 40.0-44.9, adult Code(s): E66.01 - MORBID (SEVERE) OBESITY DUE TO EXCESS CALORIES; Z68.41 - BODY MASS INDEX (BMI) 40.0-44.9, ADULT Status: Chronic (9) Acute kidney failure Status: Resolved (10) Lactic acidosis Code(s): E87.2 - ACIDOSIS Status: Resolved - Plan UTI (Group B Strep agalactiae) - possible pyelonephritis - and Diabetic Gastroparesis Exacerbation with Nausea,Vomiting and Dehydration resulting in Hypotension and JOSE * continue Levaquin upon discharge Demand Ischemia with elevated troponin * no chest pain * no events while on telemetry Hypomagnesemia * increase Mg Oxide PO to 800mg BID Hyponatremia (stable) Physical Debility * worked with PT HTN * improved after stopping IVFs Dispo: Home today. DISCHARGE SUMMARY: [id number]
--- NOTE | 2017-01-04 07:42 | DIS ---
DATE OF ADMISSION: 12/30/2016 DATE OF DISCHARGE: 01/04/2017 PRIMARY DISCHARGE DIAGNOSES: 1. Group B strep agalactiae urinary tract infection with possible pyelonephritis and diabetic gastr oparesis exacerbation resulting in nausea, vomiting, and dehydration with subsequent hypotension and acute kidney injury. 2. Demand ischemia with elevated troponin. 3. Hypomagnesemia. 4. Hyponatremia. SECONDARY DISCHARGE DIAGNOSES: 1. Physical debility. 2. Hypertension. HOSPITAL SUMMARY: This is a very pleasant 61-year-old female who presented with nausea and vomiting . She was found to be dehydrated and hypotensive with acute kidney injury, all secondary to diabeti c gastroparesis exacerbation and group B strep agalactiae pyelonephritis. She was treated with Leva [place] and this medication will be continued upon discharge to complete a 2 week course. She was also hydrated with IV fluids and treated with antiemetics. She is doing much better today. As a result of the above issues, she did have demand ischemia with elevated troponin with no chest p ain. She did not have any cardiac events while in tele. With regards to her hypomagnesemia, this h as been replaced both IV and p.o. level and increased her magnesium oxide p.o. to 800 mg b.i.d. upon discharge. For discharge physical examination, labs and imaging, please refer to my progress note from earlier today. DISCHARGE MEDICATIONS: Reviewed and reconciled. Please refer to chart for details. DISCHARGE PLAN/DISPOSITION: 1. Discharge home today. 2. We will discharge on Levaquin to complete a 2 week course for pyelonephritis. 3. We will increase magnesium oxide to 800 mg b.i.d. due to continued hypomagnesemia, which is impr oving from yesterday. 4. Regular diet. 5. Activity as tolerated. 6. Follow up PCP in 1 week.
[2017-01-04] MEDS: Acetaminophen 325 MG TAB PO PRN (08:14)
[2017-01-04] MEDS: metFORMIN 500 MG TAB PO SCH ×2 (08:14→16:29)
[2017-01-04] MEDS: Glimepiride 2 MG TAB PO SCH (08:15)
[2017-01-04] MEDS: Brimonidine Tartrate 0.2% Ophth Soln 5 ml Bottle EA EYE SCH ×2 (09:11→20:03)
[2017-01-04] MEDS: Heparin 5,000 UNITS/ML VIAL SC SCH ×2 (09:11→22:00)
[2017-01-04] MEDS: Insulin Detemir 100 UNITS/ML 15 UNITS in Pre-Filled Syringe 1 EACH SC SCH ×2 (09:13→22:05)
[2017-01-04] MEDS: Lisinopril 20 MG TAB PO SCH (09:14)
[2017-01-04] MEDS: Magnesium Oxide 400 MG TAB PO SCH ×2 (09:15→22:00)
[2017-01-04] MEDS: Saccharomyces boulardii 250 MG CAP PO SCH (09:15)
[2017-01-04] MEDS: Timolol 0.5% Ophth Soln 5 ml Bottle EA EYE SCH ×2 (09:16→20:00)
[2017-01-04] MEDS: Spironolactone 25 MG TAB PO SCH (09:16)
[2017-01-04] MEDS ORDERED: Sodium Chloride 0.9% 1,000 ML IV SCH (10:30)
[2017-01-04] MEDS: Sodium Chloride 0.9% 1,000 ML IV SCH (11:45)
[2017-01-04] MEDS: Latanoprost 0.005% Ophth Soln 2.5 ml Bottle EA EYE SCH (20:05)
[2017-01-04] MEDS: Amitriptyline HCl 25 MG TAB PO SCH (22:00)
[2017-01-04] MEDS: Atorvastatin Calcium 20 MG TAB PO SCH (22:01)
[2017-01-05] MEDS: Sodium Chloride 0.9% 1,000 ML IV SCH ×2 (02:12→21:44)
[2017-01-05 06:12] LABS: #Lymphocytes 1.5 thou/uL (1.20-3.40); #Monocytes 0.5 thou/uL (0.11-0.59); #Neutrophils 4.6 thou/uL (1.40-6.50); %Basophils 0.6 % (0.0-1.0); %Eosinophils 0.5 % (0.0-10.0); %Lymphocytes 22.8 % (21.0-51.0); %Monocytes 6.8 % (0.0-10.0); Hematocrit 32.9 % (36.0-47.0); Mean Platelet Volume 7.4 fL (7.4-10.4); Red Blood Cell (RBC) Count 3.56 mill/uL (4.20-5.40); White Blood Cell (WBC) Count 6.6 thou/uL (4.8-10.8)
[2017-01-05 06:41] LABS: Anion Gap 9 mmol/L (10-20); BUN (Urea Nitrogen) 9 mg/dL (9.8-20.1); Calc. Creatinine Clearance 113 mL/min (70-130); Calcium 8.8 mg/dL (7.8-10.44); Carbon Dioxide 29 mmol/L (23-31); Chloride 96 mmol/L (98-107); Estimated GFR-MDRD 71; Magnesium 1.2 mg/dL (1.6-2.6)
--- NOTE | 2017-01-05 07:21 | PDOC.PN ---
- Subjective Encounter Start Date: 01/05/17 Encounter Start Time: 07:19 Subjective: Generalized weakness -: no f/c -: No cp/sob - Objective Resuscitation Status: Resuscitation Status FULL:Full Resuscitation MAR Reviewed: Yes Vital Signs & Weight: Vital Signs (12 hours) Temp Pulse Resp BP BP Pulse Ox 01/05/17 03:41 99.2 F 113 H 16 144/68 H 96 01/04/17 23:34 99.3 F 104 H 16 147/69 H 96 01/04/17 20:00 99.3 F 104 H 16 94 L Weight Admit Weight 231 lb 3.2 oz Weight 218 lb 7 oz I&O: 01/04/17 01/05/17 01/06/17 06:59 06:59 06:59 Intake Total 560 1975 Output Total 1800 Balance 560 175 Result Diagrams: 01/05/17 05:56 01/05/17 05:56 Additional Labs: Accuchecks 01/05/17 01/04/17 01/04/17 05:43 21:06 16:06 POC Glucose 116 H 102 118 H 01/04/17 11:02 POC Glucose 189 H Phys Exam - Physical Examination Constitutional: NAD HEENT: moist MMs, sclera anicteric Neck: no nodes, no JVD Respiratory: no wheezing, no rales Cardiovascular: RRR, no significant murmur Gastrointestinal: soft, non-tender Lymphatic: no nodes Skin: no rash, normal turgor Dx/Plan (1) Demand ischemia Code(s): I24.8 - OTHER FORMS OF ACUTE ISCHEMIC HEART DISEASE Status: Acute (2) Hypomagnesemia Code(s): E83.42 - HYPOMAGNESEMIA Status: Acute (3) Hyponatremia Code(s): E87.1 - HYPO-OSMOLALITY AND HYPONATREMIA Status: Acute (4) UTI (urinary tract infection) Status: Acute Qualifiers: Urinary tract infection type: acute cystitis Hematuria presence: without hematuria Qualified Code(s): N30.00 - Acute cystitis without hematuria (5) DM2 (diabetes mellitus, type 2) Status: Chronic Qualifiers: Comment: (6) Gastroparesis Code(s): K31.84 - GASTROPARESIS Status: Chronic (7) HTN (hypertension) Code(s): I10 - ESSENTIAL (PRIMARY) HYPERTENSION Status: Chronic Qualifiers: Comment: (8) Morbid obesity with BMI of 40.0-44.9, adult Code(s): E66.01 - MORBID (SEVERE) OBESITY DUE TO EXCESS CALORIES; Z68.41 - BODY MASS INDEX (BMI) 40.0-44.9, ADULT Status: Chronic (9) Acute kidney failure Status: Resolved (10) Lactic acidosis Code(s): E87.2 - ACIDOSIS Status: Resolved - Plan UTI (Group B Strep agalactiae) - possible pyelonephritis - and Diabetic Gastroparesis Exacerbation with Nausea,Vomiting and Dehydration resulting in Hypotension and JSOE * continue Levaquin * check labs in AM Tachycardia and Fever * Urine cx * Blood cx * check CXR * continue IVFs * prn analgesics * check WBC in AM Demand Ischemia with elevated troponin * no chest pain * no events while on telemetry Hypomagnesemia * increased Mg Oxide PO to 800mg BID * will order 4g MgSO4 IV x1 * check labs in AM Hyponatremia (stable) Physical Debility * PT HTN * improved after stopping IVFs Dispo: Discharge cancelled yesterday due to tachycardia and low-grade fever - new cultures sent.
[2017-01-05] MEDS ORDERED: Magnesium Oxide 400 MG TAB PO SCH (07:22)
[2017-01-05] MEDS ORDERED: Magnesium Sulfate 4 GM, Admixture Fee 1 EACH in Sodium Chloride 0.9% 250 ML 250 ML IVPB SCH (07:30)
[2017-01-05] MEDS: Insulin Detemir 100 UNITS/ML 15 UNITS in Pre-Filled Syringe 1 EACH SC SCH ×2 (08:47→21:37)
[2017-01-05] MEDS: Brimonidine Tartrate 0.2% Ophth Soln 5 ml Bottle EA EYE SCH ×2 (08:49→21:49)
[2017-01-05] MEDS: Timolol 0.5% Ophth Soln 5 ml Bottle EA EYE SCH ×2 (08:50→21:50)
[2017-01-05] MEDS: Lisinopril 20 MG TAB PO SCH (08:50)
[2017-01-05] MEDS: metFORMIN 500 MG TAB PO SCH ×2 (08:51→17:07)
[2017-01-05] MEDS: Saccharomyces boulardii 250 MG CAP PO SCH (08:51)
[2017-01-05] MEDS: Glimepiride 2 MG TAB PO SCH (08:51)
[2017-01-05] MEDS: Magnesium Oxide 400 MG TAB PO SCH ×2 (08:51→21:35)
[2017-01-05] MEDS: Spironolactone 25 MG TAB PO SCH (08:51)
[2017-01-05] MEDS: Heparin 5,000 UNITS/ML VIAL SC SCH ×2 (08:52→21:38)
--- NOTE | 2017-01-05 09:07 | RAD ---
PORTABLE AP CHEST: Date: 01-05-17 History: Fever and tachycardia. Comparison: 12-30-16 FINDINGS: Cardiac silhouette is magnified by projection. Pulmonary vasculature is within normal limits. There is linear atelectasis present at each lung base centered in the left midlung zone. Lungs are otherwi se clear. No other interval change. IMPRESSION: Scattered areas of atelectasis bilaterally, but no additional acute cardiopulmonary process is ident ified. POS: [facility]
[2017-01-05 13:26] VITALS: BMI 39.9
[2017-01-05] MEDS: Atorvastatin Calcium 20 MG TAB PO SCH (21:35)
[2017-01-05] MEDS: Amitriptyline HCl 25 MG TAB PO SCH (21:35)
[2017-01-05] MEDS: Latanoprost 0.005% Ophth Soln 2.5 ml Bottle EA EYE SCH (21:49)
[2017-01-06 04:32] LABS: #Eosinphils 0.1 thou/uL (0.0-0.7); #Lymphocytes 1.9 thou/uL (1.20-3.40); #Monocytes 0.6 thou/uL (0.11-0.59); #Neutrophils 4.5 thou/uL (1.40-6.50); %Basophils 0.1 % (0.0-1.0); %Eosinophils 1.3 % (0.0-10.0); %Lymphocytes 26.5 % (21.0-51.0); %Monocytes 7.9 % (0.0-10.0); Hematocrit 32.8 % (36.0-47.0); Mean Platelet Volume 7.1 fL (7.4-10.4); Red Blood Cell (RBC) Count 3.53 mill/uL (4.20-5.40)
[2017-01-06 05:00] LABS: Anion Gap 11 mmol/L (10-20); BUN (Urea Nitrogen) 9 mg/dL (9.8-20.1); Calc. Creatinine Clearance 110 mL/min (70-130); Calcium 8.6 mg/dL (7.8-10.44); Carbon Dioxide 27 mmol/L (23-31); Chloride 97 mmol/L (98-107); Estimated GFR-MDRD 69; Magnesium 1.4 mg/dL (1.6-2.6)
[2017-01-06] MEDS: Glimepiride 2 MG TAB PO SCH (08:08)
[2017-01-06] MEDS: Spironolactone 25 MG TAB PO SCH (08:08)
[2017-01-06] MEDS: Magnesium Oxide 400 MG TAB PO SCH (08:08)
[2017-01-06] MEDS: metFORMIN 500 MG TAB PO SCH (08:08)
[2017-01-06] MEDS: Saccharomyces boulardii 250 MG CAP PO SCH (08:09)
[2017-01-06] MEDS: Heparin 5,000 UNITS/ML VIAL SC SCH (08:09)
[2017-01-06] MEDS: Brimonidine Tartrate 0.2% Ophth Soln 5 ml Bottle EA EYE SCH (08:24)
[2017-01-06] MEDS: Timolol 0.5% Ophth Soln 5 ml Bottle EA EYE SCH (08:25)
[2017-01-06] MEDS: Lisinopril 20 MG TAB PO SCH (08:27)
[2017-01-06] MEDS: Insulin Detemir 100 UNITS/ML 15 UNITS in Pre-Filled Syringe 1 EACH SC SCH (09:20)
[2017-01-06] MEDS: Mag-Al 1200 mg/1200 mg/30 ML UDCUP PO PRN (10:41)
[2017-01-06] MEDS: Sodium Chloride 0.9% 1,000 ML IV SCH (10:45)
[2017-01-06 12:12] VITALS: BP 146/70; TEMP 99.1
--- NOTE | 2017-01-06 12:56 | PDOC.PN ---
- Subjective Encounter Start Date: 01/06/17 Encounter Start Time: 12:54 Patient seen at bedside. No overnight events, no fevers. - Objective Resuscitation Status: Resuscitation Status FULL:Full Resuscitation MAR Reviewed: Yes Vital Signs & Weight: Vital Signs (12 hours) Temp Pulse Resp BP BP BP Pulse Ox 01/06/17 11:35 99.1 F 88 16 146/70 H 99 01/06/17 08:27 144/87 H 01/06/17 08:25 109 H 144/87 H 01/06/17 08:00 98.8 F 109 H 20 01/06/17 07:35 98.8 F 109 H 20 144/87 H 99 01/06/17 03:25 99.0 F 99 16 146/76 H 98 Weight Admit Weight 231 lb 3.2 oz Weight 218 lb 7 oz I&O: 01/05/17 01/06/17 01/07/17 06:59 06:59 06:59 Intake Total 1975 2150 Output Total 1800 Balance 175 2150 Result Diagrams: 01/06/17 04:22 01/06/17 04:22 Additional Labs: Accuchecks 01/06/17 01/06/17 01/05/17 11:55 05:43 20:20 POC Glucose 125 H 99 161 H 01/05/17 15:45 POC Glucose 169 H Phys Exam - Physical Examination Constitutional: NAD HEENT: moist MMs Neck: no JVD Respiratory: no rales Cardiovascular: no significant murmur Gastrointestinal: soft, non-tender Musculoskeletal: no edema Neurological: normal sensation Psychiatric: A&O x 3 Dx/Plan (1) Hypomagnesemia Code(s): E83.42 - HYPOMAGNESEMIA Status: Acute (2) UTI (urinary tract infection) Status: Chronic Qualifiers: Urinary tract infection type: acute cystitis Hematuria presence: without hematuria Qualified Code(s): N30.00 - Acute cystitis without hematuria (3) DM2 (diabetes mellitus, type 2) Status: Chronic Qualifiers: Comment: (4) Dyslipidemia Code(s): E78.5 - HYPERLIPIDEMIA, UNSPECIFIED Status: Chronic (5) Gastroparesis Code(s): K31.84 - GASTROPARESIS Status: Chronic (6) HTN (hypertension) Code(s): I10 - ESSENTIAL (PRIMARY) HYPERTENSION Status: Chronic Qualifiers: Comment: - Plan cont current plan of care, plan discussed w/ family, continue antibiotics * D/C Home. * Continue with PO Levaquin and Magnesium
--- NOTE | 2017-01-06 15:57 | ADD-DIS ---
DATE OF ADMISSION: 12/30/2016 DATE OF DISCHARGE: 01/06/2017 DISCHARGE DISPOSITION: Home. Please note this is an addendum to the original discharge summary done by Dr. Dr. Robert Cha on . Mrs. Lilli Pike's discharge was held up secondary to a low-grade fever and tachycardia. Repeat urine cultures were performed, which were negative. The patient was continued on Levaquin. She rem ained afebrile and her tachycardia has improved. Her discharge diagnosis remains to be group B Stre ptococcus agalactiae urinary tract infection with possible pyelonephritis. She is currently doing w ell. She is clinically appropriate for discharge home, and will have to continue with Levaquin for a total of 2 weeks' worth of course. Prescriptions have been sent to [facility], as these may be con firmed over there. She is doing much better. We will discharge her later today in stable condition with the same medications as before. Please see the discharge summary dictated on 01/04/[address] Reggie Cha. DISCHARGE DIET: Diabetic. ACTIVITY: As tolerated. RESTRICTIONS: None. CODE STATUS: FULL CODE. I explained all this to the patient at bedside. She is agreeable to the plan of discharge. All que stions have been answered. Time required to prepare for discharge was 31 minutes.
== END 2017-01-06 15:48 | disposition home or self-care (01) | DRG 690 ==
LOC: ERS 10:41 → 2NO 13:56 → ONC 01-01 13:09
PROVIDERS: ADMIT Internal Medicine; ATTEND Internal Medicine
DX: N30.00 Acute cystitis without hematuria (principal); N17.9 Acute kidney failure, unspecified; I24.8 Other forms of acute ischemic heart disease; I95.9 Hypotension, unspecified; E87.2 Acidosis; E11.65 Type 2 diabetes mellitus with hyperglycemia; N12 Tubulo-interstitial nephritis, not specified as acute or chronic; E87.1 Hypo-osmolality and hyponatremia; Z68.41 Body mass index [BMI] 40.0-44.9, adult; B95.1 Streptococcus, group B, as the cause of diseases classified elsewhere; E11.43 Type 2 diabetes mellitus with diabetic autonomic (poly)neuropathy; K31.84 Gastroparesis; E83.42 Hypomagnesemia; E86.0 Dehydration; R00.0 Tachycardia, unspecified; I10 Essential (primary) hypertension; E66.01 Morbid (severe) obesity due to excess calories; E78.5 Hyperlipidemia, unspecified; H40.9 Unspecified glaucoma; Z79.4 Long term (current) use of insulin; E87.8 Other disorders of electrolyte and fluid balance, not elsewhere classified; K21.9 Gastro-esophageal reflux disease without esophagitis; F41.9 Anxiety disorder, unspecified; F32.9 Major depressive disorder, single episode, unspecified
CPT/HCPCS: 36415; 36416; 71010; 80048; 80053; 81003; 81015; 82553; 83605; 83690; 83735; 84100; 84484; 85025; 87040; 87086; 93005; 96361; 96365; 96367; 96375; A4216; C9113; G8978-GP-CI; G8979-GP-CI; G8980-GP-CI; J0360; J0696; J1644; J1815; J1956; J2405; J2543; J2765; J3370; J3475; J7050; Q0162

== ENCOUNTER 2017-03-10 09:56 | Outpatient (CLI) | payer OTHER, MEDICARE | END 2017-03-10 09:57 | disposition home or self-care (01) | LOC: MRI 09:56 | PROVIDERS: ATTEND Internal Medicine Gastroenterology | DX: Z53.9 Procedure and treatment not carried out, unspecified reason (principal) | CPT/HCPCS: 70553 ==

== ENCOUNTER 2017-04-21 09:53 | Outpatient (CLI) | payer OTHER, MEDICARE ==
[2017-04-21] MEDS ORDERED: Iopamidol 370 76% 100 ML VIAL ONE (13:03)
--- NOTE | 2017-04-21 13:58 | CT ---
CT OF THE ABDOMEN PELVIS WITHOUT AND WITH CONTRAST: Comparison: 11-28-16 History: Gastroparesis and generalized abdominal pain, nausea and vomiting for four months. Technique: Multiple contiguous axial images were obtained in a CT of the abdomen and pelvis without a nd with IV contrast. Negative enteric contrast was administered. Sagittal and coronal reformats were performed. FINDINGS: The patient is status post cholecystectomy and hysterectomy. The liver, kidneys, adrenal glands, sple en and pancreas are unremarkable. No free air, free fluid, or stranding changes are seen in the abdom en or pelvis. The large bowel is unremarkable. The appendix is normal. The small bowel is normal in caliber. There is no significant wall thickening. No obvious small bowel mass is seen. No abdominal or pelvic lymphadenopathy are seen. Degenerative changes are seen in the spine. The visu alized inferior thoracic and abdominal wall soft tissues are unremarkable. IMPRESSION: No evidence of acute intraabdominal/pelvic abnormality. POS: [facility]
== END 2017-04-21 09:54 | disposition home or self-care (01) ==
LOC: CT 09:53
PROVIDERS: ATTEND Internal Medicine Gastroenterology
DX: K31.84 Gastroparesis (principal); R10.84 Generalized abdominal pain; R11.2 Nausea with vomiting, unspecified
CPT/HCPCS: 74178; 82565

== ENCOUNTER 2017-05-19 13:19 | Emergency (ER) | payer OTHER, MEDICARE ==
[2017-05-19 14:14] LABS: #Basophils 0.1 thou/uL (0.0-0.2); #Lymphocytes 1.5 thou/uL (1.20-3.40); #Monocytes 0.5 thou/uL (0.11-0.59); #Neutrophils 6.3 thou/uL (1.40-6.50); %Basophils 0.7 % (0.0-1.0); %Eosinophils 0.2 % (0.0-10.0); %Lymphocytes 18.3 % (21.0-51.0); %Monocytes 5.6 % (0.0-10.0); %Neutrophils 75.2 % (42.0-75.0); Hemoglobin 10.7 g/dL (12.0-16.0); Mean Corpuscular HGB CONC 33.6 g/dL (32.0-36.0); Mean Corpuscular Volume 92.2 fl (81.0-99.0); Platelet Count 298 thou/uL (130-400); RBC Distribution Width 11.6 % (11.5-14.5); Red Blood Cell (RBC) Count 3.45 mill/uL (4.20-5.40); White Blood Cell (WBC) Count 8.4 thou/uL (4.8-10.8)
[2017-05-19 14:15] LABS: Bilirubin Negative (Negative); Blood, Urine Negative (Negative); Clarity CLOUDY (Clear); Glucose, Urine (Dipstick) 100 mg/dL (Negative); Leukocyte Moderate (Negative); Nitrite Negative (Negative); Protein, Urine (Dipstick) 100 mg/dL (Neg-Trace); Specific Gravity, Urine 1.028 (1.002-1.036)
[2017-05-19 14:19] LABS: Bacteria/HPF 4+ HPF (None Seen); Hyaline Casts/LPF 0-3 HYALINE CAST LPF (0-3 Hyaline)
[2017-05-19 14:35] LABS: ALT (SGPT) 16 U/L (8-55); AST (SGOT) 22 U/L (5-34); Albumin 3.5 g/dL (3.4-4.8); Alkaline Phosphatase 90 U/L (40-150); Anion Gap 12 mmol/L (10-20); BUN (Urea Nitrogen) 19 mg/dL (9.8-20.1); Calc. Creatinine Clearance 0 mL/min (70-130); Calcium 9.4 mg/dL (7.8-10.44); Carbon Dioxide 35 mmol/L (23-31); Chloride 89 mmol/L (98-107); Estimated GFR-MDRD 52; Globulin 3.3 g/dL (2.4-3.5); Glucose 268 mg/dL (80-115); Lipase 28 U/L (8-78); Potassium 3.1 mmol/L (3.5-5.1); Protein, Total 6.8 g/dL (6.0-8.3); Sodium 133 mmol/L (136-145)
[2017-05-19] MEDS ORDERED: Cephalexin 250 MG CAP ONE (15:03)
[2017-05-19] MEDS ORDERED: Metoclopramide HCl 10 MG TAB PO SCH (15:15)
[2017-05-19] MEDS ORDERED: Potassium Chloride 20 MEQ TAB ONE (17:08)
== END 2017-05-19 17:23 | disposition home or self-care (01) ==
LOC: ERS 13:19
DX: E11.43 Type 2 diabetes mellitus with diabetic autonomic (poly)neuropathy (principal); K31.84 Gastroparesis; N39.0 Urinary tract infection, site not specified; E78.5 Hyperlipidemia, unspecified; Z79.84 Long term (current) use of oral hypoglycemic drugs; Z79.899 Other long term (current) drug therapy
CPT/HCPCS: 36415; 80053; 81003; 81015; 83690; 85025; 87086; 99284

== ENCOUNTER 2017-06-19 22:22 | Emergency (ER) | payer OTHER, MEDICARE ==
--- NOTE | 2017-06-20 08:06 | RAD ---
ABDOMEN 2 VIEWS WITH 1 VIEW CHEST: Date: 06/20/17 HISTORY: Constipation. COMPARISON: Chest radiograph from 2017. FINDINGS: Lungs are clear. No pneumothorax or effusion. Cardiac silhouette and mediastinal contours normal for technique and leftward rotation. On the upright view of the abdomen, there are no dilated air-filled loops of large or small bowel. No free air. There are phleboliths in the pelvis. Moderate degenerative disease of the lumbar spine. Moderate dext roscoliosis of the thoracolumbar junction. No abnormal calcifications are seen projecting over the renal shadows. IMPRESSION: No acute intrathoracic or intra-abdominal abnormality. POS: [facility]
== END 2017-06-20 02:35 | disposition home or self-care (01) ==
LOC: ERS 22:22
DX: K59.00 Constipation, unspecified (principal); E11.39 Type 2 diabetes mellitus with other diabetic ophthalmic complication; H40.9 Unspecified glaucoma; E11.43 Type 2 diabetes mellitus with diabetic autonomic (poly)neuropathy; K31.84 Gastroparesis; E78.5 Hyperlipidemia, unspecified; I10 Essential (primary) hypertension; Z79.84 Long term (current) use of oral hypoglycemic drugs; Z79.899 Other long term (current) drug therapy
CPT/HCPCS: 74022

== ENCOUNTER 2017-06-30 10:56 | Outpatient (CLI) | payer OTHER, MEDICARE | END 2017-06-30 10:57 | disposition home or self-care (01) | LOC: BICMAMMO 10:56 | PROVIDERS: ATTEND Family Medicine | DX: Z12.31 Encounter for screening mammogram for malignant neoplasm of breast (principal); Z78.0 Asymptomatic menopausal state; Z00.00 Encounter for general adult medical examination without abnormal findings; R92.1 Mammographic calcification found on diagnostic imaging of breast | CPT/HCPCS: 77063; 77067; 77080 ==

== ENCOUNTER 2017-08-03 04:37 | Emergency (ER) | payer OTHER, MEDICARE ==
[2017-08-03] MEDS ORDERED: Mag-Al 1200 mg/1200 mg/30 ML UDCUP ONE (05:09)
[2017-08-03] MEDS ORDERED: Lidocaine Viscous Sol 2% 15 ml UD Cup ONE (05:09)
[2017-08-03 05:10] LABS: #Lymphocytes 1.2 thou/uL (1.20-3.40); #Monocytes 0.2 thou/uL (0.11-0.59); #Neutrophils 9.8 thou/uL (1.40-6.50); %Basophils 0.1 % (0.0-1.0); %Lymphocytes 10.6 % (21.0-51.0); %Monocytes 1.9 % (0.0-10.0); %Neutrophils 87.4 % (42.0-75.0); Hemoglobin 11.6 g/dL (12.0-16.0); Mean Corpuscular HGB CONC 34.6 g/dL (32.0-36.0); Mean Corpuscular Hemoglobin 30.8 pg (27.0-31.0); Mean Platelet Volume 7.1 fL (7.4-10.4); Platelet Count 311 thou/uL (130-400); RBC Distribution Width 12.2 % (11.5-14.5); Red Blood Cell (RBC) Count 3.76 mill/uL (4.20-5.40); White Blood Cell (WBC) Count 11.3 thou/uL (4.8-10.8)
[2017-08-03] MEDS ORDERED: Famotidine 20 MG TAB ONE (05:21)
[2017-08-03 05:37] LABS: ALT (SGPT) 18 U/L (8-55); AST (SGOT) 24 U/L (5-34); Albumin 4.2 g/dL (3.4-4.8); Alkaline Phosphatase 106 U/L (40-150); Anion Gap 14 mmol/L (10-20); BUN (Urea Nitrogen) 15 mg/dL (9.8-20.1); Bilirubin, Total 1.4 mg/dL (0.2-1.2); Calc. Creatinine Clearance 0 mL/min (70-130); Carbon Dioxide 29 mmol/L (23-31); Chloride 94 mmol/L (98-107); Estimated GFR-MDRD 39; Globulin 3.9 g/dL (2.4-3.5); Glucose 305 mg/dL (80-115); Potassium 3.2 mmol/L (3.5-5.1); Protein, Total 8.1 g/dL (6.0-8.3); Sodium 134 mmol/L (136-145)
[2017-08-03 05:40] LABS: CKMB 1.3 ng/mL (0-6.6); Troponin I 0.027 ng/mL (< 0.028)
[2017-08-03] MEDS ORDERED: Bisacodyl 10 MG SUPP ONE (06:38)
[2017-08-03] MEDS ORDERED: diphenhydrAMINE 50 MG/ML VIAL ONE (06:38)
[2017-08-03] MEDS ORDERED: Metoclopramide HCl 10 MG/2 ML VIAL ONE (06:38)
[2017-08-03] MEDS ORDERED: Ondansetron ODT 4 MG TAB ONE (06:46)
[2017-08-03] MEDS ORDERED: Fleet Enema 133 ML BOT FS ONE (09:00)
--- NOTE | 2017-08-03 09:04 | RAD ---
CHEST 1 VIEW AND ABDOMEN 3 VIEWS: HISTORY: Chest pain, heartburn, nausea, and vomiting. COMPARISON: Comparison is made with the exam of 06/20/17. FINDINGS/IMPRESSION: The heart size is normal. The aorta is tortuous. No focal areas of consolidation, pneumothorax, or pleural effusions are seen. No free air or differential fluid levels are identified. There are post op changes of cholecystectomy. Degenerative changes are present in the spine. Multiple pelvic phleb oliths are again noted. POS: [facility]
--- NOTE | 2017-08-06 16:18 | EKG ---
Test Reason : Blood Pressure : / mmHG Vent. Rate : 106 BPM Atrial Rate : 106 BPM P-R Int : 144 ms QRS Dur : 076 ms QT Int : 358 ms P-R-T Axes : 037 -05 024 degrees QTc Int : 475 ms Sinus tachycardia Possible Left atrial enlargement Borderline ECG Confirmed by SHAYNA ANTOINE, CRISTY ([id number]), content editor VALENTIN HODGSON ([id number]) on 08/06/2017 4:18:12 PM Referred By: Confirmed By:CRISTY CORRAL MD
== END 2017-08-03 10:52 | disposition home or self-care (01) ==
LOC: ERS 04:37
DX: E11.43 Type 2 diabetes mellitus with diabetic autonomic (poly)neuropathy (principal); K31.84 Gastroparesis; E11.40 Type 2 diabetes mellitus with diabetic neuropathy, unspecified; K59.00 Constipation, unspecified; M40.209 Unspecified kyphosis, site unspecified; F32.9 Major depressive disorder, single episode, unspecified; E78.5 Hyperlipidemia, unspecified; Z79.84 Long term (current) use of oral hypoglycemic drugs; Z79.899 Other long term (current) drug therapy
CPT/HCPCS: 74022; 80053; 82553; 84484; 85025; 93005; 96361; 96374; 96375; J1200; J2765; Q0162

== ENCOUNTER 2017-08-29 10:55 | Inpatient (IN) | payer OTHER, MEDICARE ==
[2017-08-29] MEDS ORDERED: ISOVUE-370 76%-LOCM 1 ML ONE (10:58)
[2017-08-29 11:26] LABS: #Lymphocytes 1.8 thou/uL (1.20-3.40); #Monocytes 0.6 thou/uL (0.11-0.59); #Neutrophils 7.7 thou/uL (1.40-6.50); %Basophils 0.3 % (0.0-1.0); %Eosinophils 0.2 % (0.0-10.0); %Lymphocytes 17.5 % (21.0-51.0); %Monocytes 5.7 % (0.0-10.0); %Neutrophils 76.3 % (42.0-75.0); Hemoglobin 10.8 g/dL (12.0-16.0); Mean Corpuscular Hemoglobin 30.3 pg (27.0-31.0); Platelet Count 324 thou/uL (130-400); RBC Distribution Width 12.3 % (11.5-14.5); Red Blood Cell (RBC) Count 3.58 mill/uL (4.20-5.40); White Blood Cell (WBC) Count 10.1 thou/uL (4.8-10.8)
[2017-08-29 11:41] LABS: ALT (SGPT) 23 U/L (8-55); AST (SGOT) 31 U/L (5-34); Albumin 3.8 g/dL (3.4-4.8); Alkaline Phosphatase 88 U/L (40-150); Anion Gap 12 mmol/L (10-20); BUN (Urea Nitrogen) 21 mg/dL (9.8-20.1); Bilirubin, Total 1.2 mg/dL (0.2-1.2); CK (CPK) 48 U/L (29-168); Calc. Creatinine Clearance 0 mL/min (70-130); Calcium 9.3 mg/dL (7.8-10.44); Carbon Dioxide 29 mmol/L (23-31); Chloride 93 mmol/L (98-107); Estimated GFR-MDRD 55; Globulin 3.2 g/dL (2.4-3.5); Glucose 162 mg/dL (80-115); Lipase 30 U/L (8-78); Sodium 131 mmol/L (136-145)
[2017-08-29 11:44] LABS: Potassium 2.8 mmol/L (3.5-5.1)
[2017-08-29 12:30] LABS: CKMB 1.2 ng/mL (0-6.6); Troponin I Less than 0.010 ng/mL (< 0.028)
--- NOTE | 2017-08-29 13:25 | CT ---
ABDOMEN AND PELVIC CT SCAN WITH IV CONTRAST: HISTORY: A 61-year-old female with hypotension and abdominal pain, loss of appetite. COMPARISON: 04/21/17. FINDINGS: There is an overall stable appearance of a bilobed shaped subpleural nodular process in the medial as pect of the left lower lobe adjacent to the aorta and paraspinal regions, unchanged dating back to . Status post cholecystectomy. Liver, pancreas, spleen, and adrenal glands are unremarkable. Small bilateral renal hypodensities, probably small cysts, too small to definitively characterize. D uplication of the right upper renal collecting system. Normal-appearing appendix. Slightly prominen t-appearing urinary bladder wall, but probably related to under distention. Heterogeneous bone demin eralization with lumbar spine spondylosis. Very small fat-containing umbilical hernia. No abscess, adenopathy, or abnormal fluid collection within the abdomen or pelvis. IMPRESSION: No significant acute process in the abdomen or pelvis. Other stable findings as above. POS: [facility]
[2017-08-29] MEDS ORDERED: Metoclopramide HCl 10 MG/2 ML VIAL ONE ×2 (14:08→16:27)
[2017-08-29] MEDS ORDERED: Potassium Chloride 20 MEQ TAB ONE (14:08)
[2017-08-29 14:31] LABS: Bilirubin Negative (Negative); Blood, Urine Negative (Negative); Clarity CLEAR (Clear); Glucose, Urine (Dipstick) Negative (Negative); Leukocyte Moderate (Negative); Nitrite Negative (Negative); Protein, Urine (Dipstick) 30 mg/dL (Neg-Trace)
[2017-08-29 14:34] LABS: Specific Gravity, Urine Greater than 1.060 (1.002-1.036)
[2017-08-29 14:44] LABS: Bacteria/HPF 4+ HPF (None Seen); Hyaline Casts/LPF 4-6 HYALINE CAST LPF (0-3 Hyaline); Pathc Cast-AUWi Flag 0.58 (0-2.49); RBC/HPF 0-3 HPF (0-3); Squamous Epithelial 0-3 HPF (0-3); WBC/HPF 21-50 HPF (0-3)
[2017-08-29] MEDS ORDERED: cefTRIAXone\\ROCEPHIN 2 GM VIAL ONE (16:25)
[2017-08-29] MEDS ORDERED: cloNIDine 0.1 MG TAB ONE (17:28)
[2017-08-29] MEDS ORDERED: Ondansetron ODT 4 MG TAB SL PRN (18:47)
[2017-08-29] MEDS ORDERED: Ondansetron HCl/PF 4 MG/2 ML Vial IVP PRN (18:47)
[2017-08-29] MEDS ORDERED: Metoclopramide HCl 10 MG/2 ML VIAL IVP PRN (18:48)
[2017-08-29 19:19] VITALS: BMI 35.1
[2017-08-29] MEDS ORDERED: Sodium Chloride 0.9% 1,000 ML IV SCH (23:15)
[2017-08-29] MEDS: Ondansetron HCl/PF 4 MG/2 ML Vial IVP SCH (23:31)
[2017-08-29] MEDS ORDERED: Dextrose 50% Abboject 50 ML SYRINGE SLOW IVP PRN (23:47)
[2017-08-29] MEDS ORDERED: Bisacodyl 5 MG TAB PO PRN (23:47)
[2017-08-29] MEDS ORDERED: Dextrose 5% in Water 1,000 ML IV PRN (23:47)
[2017-08-29] MEDS ORDERED: Acetaminophen 650 MG Suppository PR PRN (23:47)
[2017-08-29] MEDS ORDERED: Ondansetron ODT 4 MG TAB PO PRN (23:47)
[2017-08-29] MEDS ORDERED: HumaLOG 300 UNITS/3 ML VIAL SC PRN ×2 (23:47)
[2017-08-29] MEDS ORDERED: cloNIDine 0.1 MG TAB PO PRN (23:47)
[2017-08-30] MEDS ORDERED: Potassium Chloride 20 MEQ in Premix Bag 1 BAG IVPB SCH (00:01)
[2017-08-30] MEDS ORDERED: Atorvastatin Calcium 20 MG TAB PO SCH (00:15)
[2017-08-30] MEDS ORDERED: Insulin Glargine 50 UNITS in Pre-Filled Syringe 1 EACH SC SCH ×3 (00:15→21:00)
[2017-08-30] MEDS: Sodium Chloride 0.9% 1,000 ML IV SCH ×3 (00:29→23:52)
[2017-08-30] MEDS ORDERED: Brimonidine Tartrate 0.2% Ophth Soln 5 ml Bottle EA EYE SCH (00:30)
[2017-08-30] MEDS ORDERED: Latanoprost 0.005% Ophth Soln 2.5 ml Bottle EA EYE SCH (00:30)
[2017-08-30] MEDS ORDERED: Timolol 0.5% Ophth Soln 5 ml Bottle EA EYE SCH (00:30)
[2017-08-30] MEDS: Metoclopramide HCl 10 MG/2 ML VIAL IVP SCH ×4 (00:32→16:46)
[2017-08-30] MEDS: cefTRIAXone\\ROCEPHIN 2 GM in Sodium Chloride 0.9% 100 ML IVPB SCH ×2 (00:43→23:45)
[2017-08-30] MEDS ORDERED: Lisinopril 20 MG TAB PO SCH (00:45)
[2017-08-30] MEDS ORDERED: Ondansetron HCl/PF 4 MG/2 ML Vial IVP SCH (01:00)
--- NOTE | 2017-08-30 01:38 | HP ---
PRIMARY CARE PHYSICIAN: Gabbie Bullock MD CHIEF COMPLAINT: Abdominal pain. HISTORY OF PRESENT ILLNESS: This is a 61-year-old female who has had a history of 9 months of progressive gastroparesis, followed by Dr. Palmer as an outpatient. She stated that she has had pre tty persistent abdominal pain now for the last 9 months and then it got worse about 1-2 months ago an d then last couple of days, it has been particularly severe, associated with nausea, no vomiting this time. She came into the emergency room and was diagnosed with urinary tract infection. The ER doct or did talk to Dr. Palmer who recommended that she be put on some IV erythromycin along with Reglan; ho wever, we do not have IV erythromycin here at this time. She was given Bentyl intramuscular IV fluid s and Reglan 10 mg x2 doses here along with Rocephin 2 grams IV in the emergency room. In the emerge ncy room, the patient was also found to initially be hypotensive of 97/67 which showed up and dropped to 85/63 with a pulse of 112. She was given the first liter of fluids and her blood pressure came u p to hypertensive range 169/96. She remains tachycardic at this time and her blood pressure is now 1 80/110 and she has got a dose of Catapres. She had a CT scan of the abdomen that was reportedly nega tive. PAST MEDICAL HISTORY: 1. Diabetes mellitus type 2, insulin-dependent. 2. Gastroparesis. 3. Morbid obesity. 4. Hypertension, now off all antihypertensives at home. 5. Dyslipidemia. 6. Glaucoma. PAST SURGICAL HISTORY: 1. Bilateral cataract removals. 2. Cholecystectomy. 3. Hysterectomy with bilateral salpingo-oophorectomy. 4. Tonsillectomy. 5. Left foot surgery for Charcot foot. SOCIAL HISTORY: The patient is . Her is present at the bedside. No tobacco, alcohol , or illicit drug use. ALLERGIES: PHENERGAN caused her to code. FAMILY HISTORY: No strong family history of cancer, stroke, or coronary artery disease, but she does have multiple family members with diabetes and high blood pressure. CURRENT MEDICATIONS: 1. Metformin 500 mg twice a day. 2. Atorvastatin 20 mg daily. 3. Glimepiride 2 mg daily. 4. Protonix 40 mg daily. 5. Domperidone 10 mg 4 times a day before meals. 6. Combigan ophthalmic. 7. Latanoprost ophthalmic 1 drop in each eye 2 times a day. REVIEW OF SYSTEMS: Constitutional: No fevers, no chills. Eyes: She has had a little bit of blurre d vision recently. No double vision. ENT: No congestion, drainage, or sore throat. Pulmonary: No coughing, wheezing, or shortness of breath. Cardiovascular: No chest pain, no palpitations, or rac ing heart. No syncope. Gastrointestinal: The patient reports continuous midepigastric severe abdom inal pain. This is her chronic abdominal pain, but this got worse in the last couple of days. She d oes have nausea and is constantly spitting into a bag, but denies any shmuel vomiting or retching. No diarrhea or constipation. Genitourinary: No dysuria or hematuria. Musculoskeletal: No muscle ach es or joint pains. Skin: She does have a little bit of rash on her bottom. No other skin changes s he has noticed. Neurologic: No numbness, tingling, or focal weakness. PHYSICAL EXAMINATION: VITAL SIGNS: Blood pressure 180/110, pulse 116, respirations 14, temperature 98.8, O2 sat 100% on ro om air. The patient appears in significant pain. GENERAL: This is a well-developed, obese female and [id number]-aq-wajwmn distress secondary t o pain. HEENT: Pupils equal, round, and reactive to light. Oropharynx clear without lesions, erythema, or e xudate. She has moist mucous membranes. NECK: Supple. No lymphadenopathy, no thyroid nodules or enlargement, no JVD. HEART: Regular rate and rhythm. She has a 1-2/6 systolic ejection murmur at the left sternal border . LUNGS: Clear to auscultation bilaterally. No wheezes, crackles, or rhonchi. ABDOMEN: Soft. Tender to palpation in the epigastric region without guarding or rebound tenderness. Normoactive bowel sounds. No hepatosplenomegaly or other masses. EXTREMITIES: No clubbing, cyanosis, or edema. SKIN: No rashes or other lesions noted. NEUROLOGIC: She has intact strength in all extremities. Intact sensation in all extremities and no facial droop. PSYCHIATRIC: Alert and oriented x3. She does have an anxious affect. LABORATORY AND DIAGNOSTIC DATA: CBC with hemoglobin of 10, hematocrit of 31.8. This is consistent w ith her previous lab results over the last 8 months or so. No elevated white blood cell count and no rmal platelets. Her CMP shows sodium of 131, potassium of 2.8, chloride of 93, BUN of 21, and a gluc ose of 162. The rest is normal. Lactic acid was negative 1.7. Her cardiac marker set was negative x1. Urinalysis showed white blood cells of 21-50 per high power field and 4+ bacteria with moderate leukoesterase. CT of the abdomen and pelvis shows no acute process by the radiologist report. EKG s hows sinus tachycardia, but no significant ST changes or other arrhythmias. ASSESSMENT 1. Abdominal pain, severe exacerbation of her diabetic gastroparesis. Patient has become resistant to Reglan in an outpatient according Dr. Palmer and was able to talk to on the phone, given that we do not have IV erythromycin and oral erythromycin does not seem to help in these cases. Dr. Palmer recomm ends trying a higher dose of Reglan 20 mg IV q.8 hours. He says she has tolerated the Reglan well in the past without any side effects. I will get this over a slow 2-minute push for each dose and will give her Zofran scheduled q.8 hours as well 8 mg now. We will continue intravenous fluids for now, normal saline at 100 mL per hour. We will hold off on any opiates as this can worsen gastroparesis s ymptoms. We will defer further management to Dr. Palmer. She stated he will see her later tonight. 2. Hypokalemia. She got oral potassium in the emergency room. We will actually go ahead and give h er IV doses well. 3. Hypotension, now resolved with fluids and now severely hypertensive. We will continue with cloni dine as needed and will restart some of her previous antihypertensives as it seems like she is going to need them for now. 4. Diabetes mellitus type 2, insulin-dependent. We will resume patient's Lantus 50 units twice a da y. We will put her on moderate sliding scale. 5. Gastrointestinal prophylaxis. The patient is on her home Protonix. 6. Deep venous thrombosis prophylaxis. The patient on Lovenox as well as sequential compression dev ice while in the hospital. 7. Code status. I did discuss this with the patient. She is a FULL CODE. Should she be incapacita nery, her will be her medical decision maker and his name is Bryan Pike.
--- NOTE | 2017-08-30 02:16 | CON ---
DATE OF CONSULTATION: 08/29/2017 REASON FOR CONSULTATION: Severe nausea, vomiting. HISTORY: Ms. Pike is a 61-year-old female who has long-term diabetes and a history of advanced ga stroparesis. She was last admitted to the hospital in November of last year for intractable nausea, vomiting. EGD at that time was negative. She had a negative brain CT. Since discharge, patient arthur s been seen almost monthly in the clinic. She has had steady weight loss with recurrent nausea and v omiting and poor oral intake. Numerous medications have been tried. She was tried on domperidone wi thout much success and was reverted back to oral Reglan. She has had been on Marinol initially 5 mg that was later advanced to 10 mg b.i.d. She was also on amitriptyline 25 mg at night. When she was seen in clinic last week, it was the first time that she had maintained stable weight for the previou s one-month, where she has had steady weight loss up until then. She reports chronic constipation. She has had multiple CTs including a small bowel enterography that was normal. A brain MRI was sched uled, but cannot be performed because of severe claustrophobia. Patient presents today to the ER wit h 1-week history of persistent severe nausea with dry heaving and occasional emesis. She has had a l ittle oral intake. She denies any headache, dizziness, or vertigo. She reports having severe epigas tric pain over the last several days. She has had previous cholecystectomy many years ago. There is no evidence of GI bleeding such as melena or hematochezia. In the ER, patient was initially hypoten sive and was given IV hydration. Her labs showed hypokalemia with potassium of 2.8. PAST MEDICAL HISTORY: Include, 1. Adult onset diabetes. 2. Hypertension. 3. Gastroparesis. 4. Remote history of pancreatitis. 5. Status post cholecystectomy. 6. Status post hysterectomy and oophorectomy. 7. Status post tonsillectomy. 8. History of depression/anxiety. ALLERGIES: None. HOME MEDICATIONS: At home include metformin, atorvastatin, glimepiride, esomeprazole 40 mg b.i.d., d ronabinol 10 mg p.o. t.i.d., Reglan 10 mg p.o. q.i.d. (a.c. and at bedtime), dicyclomine 10 mg 1-2 p. o. t.i.d., and eyedrops. SOCIAL HISTORY: Patient is , has no tobacco or alcohol usage. REVIEW OF SYSTEMS: Inability to eat and steady weight loss as above. Eyes: No visual change. Ear, Nose, and Throat: No new symptoms. Cardiovascular: Denies any chest pain. chest: No shortness o f breath or coughing. Gastrointestinal: As above. Genitourinary: Negative. Neuro/Psychiatric/[employer] : All negative. PHYSICAL EXAMINATION: VITAL SIGNS: Temperature is 98.8, blood pressure 110/70, pulse of 110. GENERAL: She is alert, ill appearing, but in no severe distress. HEENT: Shows anicteric sclerae. Oropharynx clear. NECK: Supple. HEART: Shows normal S1 and S2, regular rhythm, tachycardic. LUNGS: Chest exam shows breath sounds. ABDOMEN: Protuberant, soft, no appreciable tenderness, no guarding, tension, or rebound. She has stefani wel sounds. EXTREMITIES: Does not show any edema. LABORATORY DATA: WBC is 10.1, hemoglobin 10.8, MCV of 89, platelet count of 324. Sodium 131, potass ium 2.8, chloride 93, CO2 of 29, creatinine 1.02, BUN of 21, bilirubin 1.2. AST 31, ALT 23, alkaline phosphatase 88. Urinalysis is active. ASSESSMENT: Chronic nausea, vomiting from gastroparesis, currently likely exacerbated by her urinary tract infection. Patient has been refractory to various trials of medication as an outpatient. I h ave spoken to her about a possible jejunostomy tube placement from the nutritional support. Currentl y, patient has pretty significant epigastric pain, which is something new with her symptomatology. E GD, CT, CT enterography, and brain CT, have all been negative in the past. RECOMMENDATIONS: 1. Treat underlying urinary tract infection. 2. IV hydration support and correct hypokalemia. 3. Diagnostic upper endoscopy in a.m. given a fairly significant epigastric pain on this admission w ith a negative abdominal pelvic CT and prior cholecystectomy. 4. I will review CT. Her current CT with Radiology as to her mesenteric vessels are visualized. If not, a dedicated CT angiogram will be ordered after patient has been given proper IV hydration to ex clude any mesenteric vascular disease. 5. In the meantime, I would place patient on IV Reglan 20 mg q.8 in addition to IV ondansetron 8 mg IV q.8. 6. Anxiolytic such as Ativan, Xanax in the meantime for anxiety and hopefully this will also help wi th her nausea and vomiting.
[2017-08-30 05:17] LABS: #Lymphocytes 1.8 thou/uL (1.20-3.40); #Monocytes 0.7 thou/uL (0.11-0.59); %Basophils 0.4 % (0.0-1.0); %Eosinophils 0.3 % (0.0-10.0); %Lymphocytes 21.1 % (21.0-51.0); %Neutrophils 70.2 % (42.0-75.0); Mean Corpuscular HGB CONC 34.7 g/dL (32.0-36.0); Mean Corpuscular Hemoglobin 30.7 pg (27.0-31.0); Mean Corpuscular Volume 88.3 fl (81.0-99.0); Mean Platelet Volume 7.1 fL (7.4-10.4); Platelet Count 249 thou/uL (130-400); RBC Distribution Width 12.4 % (11.5-14.5); Red Blood Cell (RBC) Count 3.25 mill/uL (4.20-5.40); White Blood Cell (WBC) Count 8.6 thou/uL (4.8-10.8)
[2017-08-30 05:41] LABS: Anion Gap 13 mmol/L (10-20); BUN (Urea Nitrogen) 14 mg/dL (9.8-20.1); Calc. Creatinine Clearance 117 mL/min (70-130); Calcium 8.4 mg/dL (7.8-10.44); Carbon Dioxide 24 mmol/L (23-31); Chloride 101 mmol/L (98-107); Estimated GFR-MDRD 89; Glucose 96 mg/dL (80-115); Potassium 3.2 mmol/L (3.5-5.1); Sodium 135 mmol/L (136-145)
[2017-08-30] MEDS ORDERED: Metoclopramide HCl 10 MG/2 ML VIAL IVP SCH (06:00)
[2017-08-30] MEDS: Ondansetron HCl/PF 4 MG/2 ML Vial IVP SCH ×3 (06:04→23:46)
[2017-08-30] MEDS ORDERED: metFORMIN 500 MG TAB PO SCH (08:00)
[2017-08-30] MEDS ORDERED: Pantoprazole 40 MG VIAL IVP SCH (09:00)
[2017-08-30] MEDS: Glimepiride 2 MG TAB PO SCH (09:09)
[2017-08-30] MEDS: Enoxaparin Sodium 40 MG/0.4 ML SYRINGE SC SCH (09:10)
[2017-08-30] MEDS: Lisinopril 20 MG TAB PO SCH (09:18)
[2017-08-30] MEDS: Timolol 0.5% Ophth Soln 5 ml Bottle EA EYE SCH ×2 (09:21→21:10)
[2017-08-30] MEDS: Brimonidine Tartrate 0.2% Ophth Soln 5 ml Bottle EA EYE SCH ×2 (09:21→21:09)
[2017-08-30] MEDS ORDERED: Ondansetron HCl/PF 4 MG/2 ML Vial IVP PRN (13:19)
[2017-08-30] MEDS ORDERED: PROPOFOL 200 MG/20 ML VIAL ONE (13:23)
[2017-08-30] MEDS ORDERED: Lidocaine 1% PF 5 ML VIAL ONE (13:23)
[2017-08-30] MEDS ORDERED: Ondansetron HCl/PF 4 MG/2 ML Vial ONE (13:57)
--- NOTE | 2017-08-30 13:58 | OP ---
DATE OF PROCEDURE: 08/30/2017 PREOPERATIVE DIAGNOSIS: Epigastric pain, nausea, and vomiting. INDICATIONS: Ms. Pike has had a history of refractory gastroparesis. She presents again with inc reased abdominal pain. Therefore, endoscopy was performed to rule out peptic ulcer, gastritis or oth er mucosal or structural source. PROCEDURE: Esophagogastroduodenoscopy with biopsy. OPERATIVE NOTE: Informed consent was obtained from the patient. She was sedated with total intraven ous anesthesia. The bite block was placed and the endoscope was advanced easily to the second portio n of the duodenum and retroflexion was performed in the stomach. The esophagus was normal. The GE j unction was normal. The stomach had minimal patchy erythematous gastritis, nonerosive in the antrum. Biopsies were obtained to rule out H. pylori. The remainder of the stomach was normal including re troflexed views. The pylorus and first and second portions of the duodenum were normal. Duodenal bi opsies were taken to rule out celiac disease. IMPRESSION: 1. Minimal nonerosive gastritis in the antrum. Biopsies taken to rule out Helicobacter pylori. 2. Otherwise, normal esophagogastroduodenoscopy. Duodenal biopsies taken to rule out celiac disease . RECOMMENDATIONS: 1. Await histopathology. 2. Continue symptomatic treatment with metoclopramide and proton pump inhibitor and antiemetics. 3. Dr. Palmer will be back tomorrow.
[2017-08-30] MEDS: Acetaminophen 325 MG TAB PO PRN (14:35)
--- NOTE | 2017-08-30 14:44 | PDOC.PN ---
- Subjective Encounter Start Date: 08/30/17 Encounter Start Time: 14:42 Subjective: still complains of abd pain and nausea.S/P EGD -: no diarrhea,melena.no fever/chills/vomiting - Objective Resuscitation Status: Resuscitation Status FULL:Full Resuscitation MAR Reviewed: Yes Vital Signs & Weight: Vital Signs (12 hours) Temp Pulse Pulse Resp BP BP BP 08/30/17 14:35 181/87 H 08/30/17 12:00 99.2 F 79 18 137/72 08/30/17 09:21 90 08/30/17 08:00 99.0 F 90 18 149/71 H 08/30/17 07:35 90 149/71 H 08/30/17 04:00 97.6 F 94 18 156/71 H Pulse Ox Pulse Ox 08/30/17 14:35 08/30/17 12:00 96 08/30/17 09:21 08/30/17 08:00 96 08/30/17 07:35 96 08/30/17 04:00 97 Weight Admit Weight 185 lb 11.2 oz Weight 185 lb 11.2 oz Result Diagrams: 08/30/17 04:32 08/30/17 04:32 Additional Labs: Accuchecks 08/30/17 08/30/17 08/29/17 11:14 06:13 20:31 POC Glucose 96 86 114 H Microbiology 08/29/17 11:46 Stool - Pending Stool Occult Blood ([facility]IVER) - Final 08/29/17 16:30 Venous blood - Right Hand Blood Culture - Preliminary Specimen has been received and culture in progress. No Growth to date. 08/29/17 14:13 Urine clean catch Urine Culture - Preliminary Gram Negative Duane 08/29/17 11:41 Venous blood - Right Arm Blood Culture - Preliminary Specimen has been received and culture in progress. No Growth to date. LABS REVIEWED Phys Exam - Physical Examination Constitutional: NAD uncomfortable HEENT: PERRLA, moist MMs, sclera anicteric, oral pharynx no lesions Neck: no nodes, no JVD, supple, full ROM Respiratory: no wheezing, no rales, no rhonchi, clear to auscultation bilateral Cardiovascular: RRR, no significant murmur, no rub Gastrointestinal: soft, no distention, positive bowel sounds mild TTP diffusely Musculoskeletal: no edema, pulses present Neurological: non-focal, normal sensation, moves all 4 limbs Psychiatric: normal affect, A&O x 3 Skin: no rash Dx/Plan (1) Intractable abdominal pain Code(s): R10.9 - UNSPECIFIED ABDOMINAL PAIN Status: Acute (2) UTI (urinary tract infection) Status: Chronic Qualifiers: Urinary tract infection type: acute cystitis Hematuria presence: without hematuria Qualified Code(s): N30.00 - Acute cystitis without hematuria (3) Hypokalemia Code(s): E87.6 - HYPOKALEMIA Status: Resolved (4) DM2 (diabetes mellitus, type 2) Status: Chronic Qualifiers: Comment: (5) Dyslipidemia Code(s): E78.5 - HYPERLIPIDEMIA, UNSPECIFIED Status: Chronic (6) Gastroparesis Code(s): K31.84 - GASTROPARESIS Status: Chronic (7) HTN (hypertension) Code(s): I10 - ESSENTIAL (PRIMARY) HYPERTENSION Status: Chronic Qualifiers: Comment: - Plan plan discussed w/ family, PT/OT, out of bed/ambulate, DVT proph w/SCDs EGD only shows mild gastritis.cont PPI.Follow Bx results -: cont IV reglan and zofran.1 dose morphine but avoid narcotics -: stop Metformin and lantus as PO intake minimal.cont IVF for niw -: replace and recheck potassium.monitor. -: cont empiric ABX for UTI.follow final Cx results * .cont supportive care. * home meds as below. * BP higher side.monitor. exacerbated by pain and anxiety * PCT following * am labs Review of Systems - Review of Systems Constitutional: malaise. negative: fever, chills, sweats, weakness, other ENT: negative: Ear Pain, Ear Discharge, Nose Pain, Nose Discharge, Nose Congestion, Mouth Pain, Mouth Swelling, Throat Pain, Throat Swelling, Other Respiratory: negative: Cough, Dry, Shortness of Breath, Hemoptysis, SOB with Excertion, Pleuritic Pain, Sputum, Wheezing Cardiovascular: negative: chest pain, palpitations, orthopnea, paroxysmal nocturnal dyspnea, edema, light headedness, other Gastrointestinal: Nausea, Abdominal Pain. negative: Vomiting, Diarrhea, Constipation, Melena, Hematochezia, Other Genitourinary: negative: Dysuria, Frequency, Incontinence, Hematuria, Retention , Other Musculoskeletal: negative: Neck Pain, Shoulder Pain, Arm Pain, Back Pain, Hand Pain, Leg Pain, Foot Pain, Other Neurological: negative: Weakness, Numbness, Incoordination, Change in Speech, Confusion, Seizures, Other - Medications/Allergies Allergies/Adverse Reactions: Allergies Allergy/AdvReac Type Severity Reaction Status Date / Time promethazine HCl Allergy Severe Verified 08/29/17 19:27 [From Phenergan] Medications: Current Medications Acetaminophen (Tylenol) 650 mg PO Q4H PRN PRN Reason: Headache/Fever or Pain Last Admin: 08/30/17 14:35 Dose: 650 mg Acetaminophen (Tylenol) 650 mg [place] Q4H PRN PRN Reason: Headache/Fever or Pain Atorvastatin Calcium (Lipitor) 20 mg PO HS [facility] Bisacodyl (Dulcolax) 10 mg PO DAILYPRN PRN PRN Reason: Constipation Brimonidine Tartrate (Alphagan 0.2% Oph Soln) 1 drop EA EYE Q12H [facility] Last Admin: 08/30/17 09:21 Dose: 1 drop Clonidine (Catapres) 0.1 mg PO Q4H PRN PRN Reason: hypertension Last Admin: 08/30/17 14:35 Dose: 0.1 mg Dextrose/Water (Dextrose 50%) 25 gm SLOW IVP PRN PRN PRN Reason: Hypoglycemia Enoxaparin Sodium (Lovenox) 40 mg SC 0900 [facility] Last Admin: 08/30/17 09:10 Dose: Not Given Glimepiride (Amaryl) 2 mg PO QAM-WM [facility] Last Admin: 08/30/17 09:09 Dose: Not Given Glucagon (Glucagon) 1 mg IM PRN PRN PRN Reason: Hypoglycemia Dextrose/Water (D5w) 1,000 mls @ 0 mls/hr IV .Q0M PRN; As Directed PRN Reason: Hypoglycemia Ceftriaxone Sodium 2 gm/ (Sodium Chloride) 100 mls @ 200 mls/hr IVPB Q24HR [facility] Last Admin: 08/30/17 00:43 Dose: 100 mls Sodium Chloride (Normal Saline 0.9%) 1,000 mls @ 100 mls/hr IV .Q10H [facility] Last Admin: 08/30/17 10:30 Dose: 1,000 mls Insulin Human Lispro (Humalog) 0 units SC .MODERATE SLIDING SC PRN PRN Reason: Moderate Correctional Scale Insulin Human Lispro (Humalog) 0 units SC .BEDTIME SLIDING SC PRN PRN Reason: Bedtime Correctional Scale Latanoprost (Xalatan 0.005% Ophth Soln) 1 drop EA EYE [facility] Lisinopril (Zestril) 20 mg PO DAILY [facility] Last Admin: 08/30/17 09:18 Dose: 20 mg Metoclopramide HCl (Reglan) 20 mg IVP 0100,0900,1700 [facility] Last Admin: 08/30/17 09:19 Dose: 20 mg Morphine Sulfate (Morphine) 2 mg SLOW IVP ONE [facility] Ondansetron HCl (Zofran) 8 mg IVP 0700,1500,2300 [facility] Last Admin: 08/30/17 06:04 Dose: 8 mg Ondansetron HCl (Zofran Odt) 4 mg PO Q6H PRN PRN Reason: Nausea/Vomiting Ondansetron HCl (Pacu-Zofran) 4 mg IVP ONE PRN PRN Reason: Nausea/Vomiting Stop: 08/30/17 16:19 Pantoprazole Sodium (Protonix) 40 mg PO DAILY [facility] Last Admin: 08/30/17 09:19 Dose: 40 mg Sodium Chloride (Flush - Normal Saline) 10 ml IVF PRN PRN PRN Reason: Saline Flush Timolol Maleate (Timoptic 0.5% Ophth Soln) 1 drop EA EYE BID [facility] Last Admin: 08/30/17 09:21 Dose: 1 drop
[2017-08-30] MEDS: Atorvastatin Calcium 20 MG TAB PO SCH (21:07)
[2017-08-30] MEDS: Latanoprost 0.005% Ophth Soln 2.5 ml Bottle EA EYE SCH (21:08)
[2017-08-31] MEDS: Metoclopramide HCl 10 MG/2 ML VIAL IVP SCH ×3 (01:13→17:19)
[2017-08-31 05:55] LABS: Anion Gap 10 mmol/L (10-20); BUN (Urea Nitrogen) 8 mg/dL (9.8-20.1); Calc. Creatinine Clearance 121 mL/min (70-130); Calcium 8.4 mg/dL (7.8-10.44); Carbon Dioxide 28 mmol/L (23-31); Chloride 100 mmol/L (98-107); Estimated GFR-MDRD Greater than 90; Glucose 105 mg/dL (80-115); Sodium 135 mmol/L (136-145)
[2017-08-31] MEDS: Ondansetron HCl/PF 4 MG/2 ML Vial IVP SCH ×3 (07:03→23:29)
[2017-08-31] MEDS: Acetaminophen 325 MG TAB PO PRN (07:39)
[2017-08-31] MEDS: Sodium Chloride 0.9% 1,000 ML IV SCH ×2 (07:58→11:13)
[2017-08-31] MEDS: Brimonidine Tartrate 0.2% Ophth Soln 5 ml Bottle EA EYE SCH ×2 (10:00→21:26)
[2017-08-31] MEDS: Timolol 0.5% Ophth Soln 5 ml Bottle EA EYE SCH ×2 (10:00→21:27)
[2017-08-31] MEDS: Lisinopril 20 MG TAB PO SCH (10:04)
[2017-08-31] MEDS: Enoxaparin Sodium 40 MG/0.4 ML SYRINGE SC SCH (10:04)
[2017-08-31] MEDS: Glimepiride 2 MG TAB PO SCH (10:05)
--- NOTE | 2017-08-31 12:49 | PDOC.PN ---
- Subjective Encounter Start Date: 08/31/17 Encounter Start Time: 12:48 Subjective: still c/o abd pain.no nausea or vomiting -: able to tolerate diet .no diarrhea -: had a normal BM this morning - Objective Resuscitation Status: Resuscitation Status FULL:Full Resuscitation MAR Reviewed: Yes Vital Signs & Weight: Vital Signs (12 hours) Temp Pulse Pulse Resp BP BP BP 08/31/17 12:32 99.0 F 89 20 132/68 08/31/17 11:15 99.2 F 97 18 124/68 08/31/17 10:32 97 124/68 08/31/17 10:04 172/81 H 08/31/17 10:00 92 172/81 H 08/31/17 07:30 98.8 F 92 18 172/81 H 08/31/17 04:00 98.3 F 92 157/74 H Pulse Ox 08/31/17 12:32 98 08/31/17 11:15 95 08/31/17 10:32 08/31/17 10:04 08/31/17 10:00 08/31/17 07:30 96 08/31/17 04:00 95 Weight Admit Weight 185 lb 11.2 oz Weight 185 lb 11.2 oz I&O: 08/30/17 08/31/17 09/01/17 06:59 06:59 06:59 Intake Total 480 Balance 480 Result Diagrams: 08/30/17 04:32 08/31/17 05:22 Additional Labs: Accuchecks 08/31/17 08/31/17 08/30/17 10:56 05:49 20:39 POC Glucose 191 H 110 223 H 08/30/17 16:06 POC Glucose 166 H Microbiology 08/29/17 11:46 Stool - Pending Stool Occult Blood ([facility]) - Final 08/29/17 16:30 Venous blood - Right Hand Blood Culture - Preliminary Specimen has been received and culture in progress. No Growth to date. 08/29/17 14:13 Urine clean catch Urine Culture - Preliminary Proteus mirabilis 08/29/17 11:41 Venous blood - Right Arm Blood Culture - Preliminary Specimen has been received and culture in progress. No Growth to date. Phys Exam - Physical Examination Constitutional: NAD uncomfortable due to pain HEENT: PERRLA, moist MMs, sclera anicteric, oral pharynx no lesions Neck: no nodes, no JVD, supple, full ROM Respiratory: no wheezing, no rales, no rhonchi, clear to auscultation bilateral Cardiovascular: RRR, no significant murmur, no rub Gastrointestinal: soft, no distention, positive bowel sounds Musculoskeletal: no edema, pulses present Neurological: non-focal, normal sensation, moves all 4 limbs Psychiatric: normal affect, A&O x 3 Skin: no rash Dx/Plan (1) Intractable abdominal pain Code(s): R10.9 - UNSPECIFIED ABDOMINAL PAIN Status: Acute Comment: likley due to diabetic gastroparesis (2) UTI (urinary tract infection) Status: Chronic Qualifiers: Urinary tract infection type: acute cystitis Hematuria presence: without hematuria Qualified Code(s): N30.00 - Acute cystitis without hematuria (3) Hypokalemia Code(s): E87.6 - HYPOKALEMIA Status: Resolved Comment: replace and recheck prn (4) DM2 (diabetes mellitus, type 2) Status: Chronic Qualifiers: Comment: (5) Dyslipidemia Code(s): E78.5 - HYPERLIPIDEMIA, UNSPECIFIED Status: Chronic (6) Gastroparesis Code(s): K31.84 - GASTROPARESIS Status: Chronic (7) HTN (hypertension) Code(s): I10 - ESSENTIAL (PRIMARY) HYPERTENSION Status: Chronic Qualifiers: Comment: - Plan plan discussed w/ family, DVT proph w/SCDs cont ABx for UTI.DC IVF as adequate PO intake -: add prn Morphine for uncontrolled abd pain -: follow GI recs -: cont PPI.follow Path results/H.pylori results -: HD stable. will transfer to medical * . Review of Systems - Review of Systems Constitutional: weakness, malaise ENT: negative: Ear Pain, Ear Discharge, Nose Pain, Nose Discharge, Nose Congestion, Mouth Pain, Mouth Swelling, Throat Pain, Throat Swelling, Other Respiratory: negative: Cough, Dry, Shortness of Breath, Hemoptysis, SOB with Excertion, Pleuritic Pain, Sputum, Wheezing Cardiovascular: negative: chest pain, palpitations, orthopnea, paroxysmal nocturnal dyspnea, edema, light headedness, other Gastrointestinal: Abdominal Pain. negative: Nausea, Vomiting, Diarrhea, Constipation, Melena, Hematochezia, Other Genitourinary: negative: Dysuria, Frequency, Incontinence, Hematuria, Retention , Other Musculoskeletal: negative: Neck Pain, Shoulder Pain, Arm Pain, Back Pain, Hand Pain, Leg Pain, Foot Pain, Other Skin: negative: Rash, Lesions, Alexsander, Bruising, Other Neurological: negative: Weakness, Numbness, Incoordination, Change in Speech, Confusion, Seizures, Other - Medications/Allergies Allergies/Adverse Reactions: Allergies Allergy/AdvReac Type Severity Reaction Status Date / Time promethazine HCl Allergy Severe Verified 08/29/17 19:27 [From Phenergan] Medications: Current Medications Acetaminophen (Tylenol) 650 mg PO Q4H PRN PRN Reason: Headache/Fever or Pain Last Admin: 08/31/17 07:39 Dose: 650 mg Acetaminophen (Tylenol) 650 mg [place] Q4H PRN PRN Reason: Headache/Fever or Pain Atorvastatin Calcium (Lipitor) 20 mg PO HS [facility] Last Admin: 08/30/17 21:07 Dose: 20 mg Bisacodyl (Dulcolax) 10 mg PO DAILYPRN PRN PRN Reason: Constipation Brimonidine Tartrate (Alphagan 0.2% Oph Sol) 1 drop EA EYE Q12H [facility] Last Admin: 08/31/17 10:00 Dose: 1 drop Clonidine (Catapres) 0.1 mg PO Q4H PRN PRN Reason: hypertension Last Admin: 08/30/17 14:35 Dose: 0.1 mg Dextrose/Water (Dextrose 50%) 25 gm SLOW IVP PRN PRN PRN Reason: Hypoglycemia Enoxaparin Sodium (Lovenox) 40 mg SC 0900 [facility] Last Admin: 08/31/17 10:04 Dose: 40 mg Glimepiride (Amaryl) 2 mg PO QAM-[facility] Last Admin: 08/31/17 10:05 Dose: 2 mg Glucagon (Glucagon) 1 mg IM PRN PRN PRN Reason: Hypoglycemia Dextrose/Water (D5w) 1,000 mls @ 0 mls/hr IV .Q0M PRN; As Directed PRN Reason: Hypoglycemia Ceftriaxone Sodium 2 gm/ (Sodium Chloride) 100 mls @ 200 mls/hr IVPB Q24HR [facility] Last Admin: 08/30/17 23:45 Dose: 100 mls Sodium Chloride (Normal Saline 0.9%) 1,000 mls @ 100 mls/hr IV .Q10H [facility] Last Admin: 08/31/17 11:13 Dose: 1,000 mls Potassium Chloride 40 meq/ (Device) 400 mls @ 100 mls/hr IVPB ONE [facility] Insulin Human Lispro (Humalog) 0 units SC .MODERATE SLIDING SC PRN PRN Reason: Moderate Correctional Scale Last Admin: 08/31/17 11:13 Dose: 2 unit Insulin Human Lispro (Humalog) 0 units SC .BEDTIME SLIDING SC PRN PRN Reason: Bedtime Correctional Scale Last Admin: 08/30/17 21:07 Dose: 2 unit Latanoprost (Xalatan 0.005% Ophth Soln) 1 drop EA EYE HS [facility] Last Admin: 08/30/17 21:08 Dose: 1 drop Lisinopril (Zestril) 20 mg PO DAILY [facility] Last Admin: 08/31/17 10:04 Dose: 20 mg Metoclopramide HCl (Reglan) 20 mg IVP 0100,0900,1700 [facility] Last Admin: 08/31/17 10:05 Dose: 20 mg Morphine Sulfate (Morphine) 2 mg SLOW IVP Q6H PRN PRN Reason: Severe Pain (7-10) Ondansetron HCl (Zofran) 8 mg IVP 0700,1500,2300 [facility] Last Admin: 08/31/17 07:03 Dose: 8 mg Ondansetron HCl (Zofran Odt) 4 mg PO Q6H PRN PRN Reason: Nausea/Vomiting Pantoprazole Sodium (Protonix) 40 mg PO DAILY [facility] Last Admin: 08/31/17 10:05 Dose: 40 mg Sodium Chloride (Flush - Normal Saline) 10 ml IVF PRN PRN PRN Reason: Saline Flush Last Admin: 08/31/17 10:05 Dose: 10 ml Timolol Maleate (Timoptic 0.5% Ophth Soln) 1 drop EA EYE BID [facility] Last Admin: 08/31/17 10:00 Dose: 1 drop
[2017-08-31] MEDS ORDERED: Potassium Chloride 40 MEQ in Premix Bag 1 BAG IVPB SCH (13:00)
[2017-08-31] MEDS: Potassium Chloride 20 MEQ in Premix Bag 1 BAG IVPB SCH ×2 (14:19→16:40)
--- NOTE | 2017-08-31 14:44 | PRG ---
DATE OF SERVICE: 08/31/2017 SUBJECTIVE: Ms. Pike has no nausea or vomiting. She continues to have the abdominal pain, which is more periumbilical to lower and continuous. She has diaphoresis, which she states is due to the p ain. She had a formed bowel movement today and 2 days ago. PHYSICAL EXAMINATION: VITAL SIGNS: Temperature 99.0, pulse 89, blood pressure 132/68. GENERAL: She is in no acute distress. She is alert and oriented x3. LUNGS: Clear to auscultation bilaterally. HEART: Regular rate and rhythm. ABDOMEN: Soft. She has no obvious tenderness to palpation. She has no guarding. Bowel sounds are present. EXTREMITIES: No lower extremity edema. LABORATORY DATA: White blood cell count 8.6, hemoglobin 10.0, platelets 249, creatinine 0.65. IMPRESSION: 1. Periumbilical abdominal pain. The cause of her pain is undetermined at this point. EGD yesterda y was basically normal. She had some mild antral gastritis and biopsies were obtained from the stoma ch and confirmed to be negative for Helicobacter pylori. Duodenal biopsies were negative for celiac disease. She had a CT scan on presentation on 08/29/2017. She did not have a significant amount of stool retained in the colon at that time. I reviewed the CT with Radiology and the mesenteric vessel s are patent. She has a history of severe gastroparesis. However, she is tolerating diet well now w ith no nausea or vomiting. She does report having been admitted with a fecal impaction and she did t ry Amitiza prior to this hospitalization, but she was only on it for around 3 days. At this point, s he likely has a functional source for abdominal pain. No structural lesions identified by endoscopy or imaging. Biopsies are negative. I recommend avoiding the morphine at this point, given her sever e gastroparesis and previous severe constipation. Her abdomen has no guarding to palpation and she d oes not seem particularly tender at all to palpation. However, she does have continuous pain. I paddy l discontinue opioids at this point. Given the constipation and frequent stools, we will restart lax atives. She is currently still on the Amitiza 8 mcg twice daily. We can add MiraLax once daily in a ddition to this, if necessary. Given that she had a normal bowel movement today, we will just contin ue with Amitiza alone. 2. Gastroparesis. She has been on metoclopramide. She is having no nausea or vomiting now. Endosc opy was normal yesterday. RECOMMENDATIONS: 1. Continue metoclopramide and a low fiber diet. 2. Continue Amitiza for now. 3. She is on dronabinol 10 mg twice daily. 4. She remains on antibiotics for urinary tract infection. Of note, she is on lisinopril, but CT did not show signs of angioedema.
[2017-08-31] MEDS ORDERED: DRONABINOL 10 MG PO SCH (21:00)
[2017-08-31] MEDS ORDERED: Non-Formulary Item 1 EACH (Omeprazole [Omeprazole] 40 MG) PO SCH (21:00)
[2017-08-31] MEDS: Latanoprost 0.005% Ophth Soln 2.5 ml Bottle EA EYE SCH (21:26)
[2017-08-31] MEDS: Atorvastatin Calcium 20 MG TAB PO SCH (21:28)
[2017-08-31] MEDS: Lubiprostone 8 MCG CAP PO SCH (22:00)
[2017-08-31] MEDS: Dronabinol 2.5 MG CAP PO SCH (22:00)
[2017-09-01] MEDS: cefTRIAXone\\ROCEPHIN 2 GM in Sodium Chloride 0.9% 100 ML IVPB SCH (00:34)
[2017-09-01] MEDS: Metoclopramide HCl 10 MG/2 ML VIAL IVP SCH ×2 (01:18→09:31)
[2017-09-01] MEDS: Ondansetron HCl/PF 4 MG/2 ML Vial IVP SCH ×3 (06:26→23:30)
[2017-09-01] MEDS ORDERED: Non-Formulary Item 1 EACH (Sertraline Hcl [Zoloft] 50 MG) PO SCH (09:00)
[2017-09-01] MEDS: Lisinopril 20 MG TAB PO SCH (09:31)
[2017-09-01] MEDS: Glimepiride 2 MG TAB PO SCH (09:31)
[2017-09-01] MEDS: Lubiprostone 8 MCG CAP PO SCH ×2 (09:31→21:21)
[2017-09-01] MEDS: Brimonidine Tartrate 0.2% Ophth Soln 5 ml Bottle EA EYE SCH ×2 (09:32→21:23)
[2017-09-01] MEDS: Dronabinol 2.5 MG CAP PO SCH ×2 (09:32→21:21)
[2017-09-01] MEDS: Timolol 0.5% Ophth Soln 5 ml Bottle EA EYE SCH ×2 (09:32→21:23)
[2017-09-01] MEDS: Enoxaparin Sodium 40 MG/0.4 ML SYRINGE SC SCH (09:33)
--- NOTE | 2017-09-01 11:54 | PDOC.PN ---
- Subjective Encounter Start Date: 09/01/17 Encounter Start Time: 11:52 Subjective: feels much better today.some abd pain but getting better -: no nausea/vomiting.1 soft stool this morning -: good appetitie - Objective Resuscitation Status: Resuscitation Status FULL:Full Resuscitation MAR Reviewed: Yes Vital Signs & Weight: Vital Signs (12 hours) Temp Pulse Resp BP BP Pulse Ox 09/01/17 09:32 115 H 171/78 H 09/01/17 09:31 172/81 H 09/01/17 07:51 98.8 F 115 H 20 133/78 98 Weight Admit Weight 185 lb 11.2 oz Weight 185 lb 11.2 oz I&O: 08/31/17 09/01/17 09/02/17 06:59 06:59 06:59 Intake Total 3330 Balance 3330 Result Diagrams: 08/30/17 04:32 08/31/17 05:22 Additional Labs: Accuchecks 09/01/17 09/01/17 08/31/17 11:15 06:05 19:59 POC Glucose 219 H 141 H 174 H 08/31/17 16:49 POC Glucose 198 H Microbiology 08/29/17 14:13 Urine clean catch Urine Culture - Final Klebsiella pneumoniae ssp pneu 08/29/17 11:46 Stool - Pending Stool Occult Blood ([facility]) - Final 08/29/17 16:30 Venous blood - Right Hand Blood Culture - Preliminary Specimen has been received and culture in progress. No Growth to date. 08/29/17 16:30 Venous blood - Right Hand Blood Culture - Preliminary NO GROWTH AT 48 HOURS 08/29/17 14:13 Urine clean catch Urine Culture - Preliminary Proteus mirabilis 08/29/17 14:13 Urine clean catch Urine Culture - Preliminary Gram Negative Duane 08/29/17 11:41 Venous blood - Right Arm Blood Culture - Preliminary Specimen has been received and culture in progress. No Growth to date. 08/29/17 11:41 Venous blood - Right Arm Blood Culture - Preliminary NO GROWTH AT 48 HOURS LABS REVIEWED Phys Exam - Physical Examination Constitutional: NAD HEENT: PERRLA, moist MMs, sclera anicteric, TM's clear, oral pharynx no lesions , 2+ tonsils Neck: no nodes, no JVD, supple, full ROM Respiratory: no wheezing, no rales, no rhonchi, wheezing present, clear to auscultation bilateral Cardiovascular: RRR, no significant murmur, no rub, gallop, irregular Gastrointestinal: soft, no distention, positive bowel sounds mild TTP periumbilical region Musculoskeletal: no edema, pulses present Neurological: non-focal, normal sensation, moves all 4 limbs Psychiatric: normal affect, A&O x 3 Skin: no rash Dx/Plan (1) Intractable abdominal pain Code(s): R10.9 - UNSPECIFIED ABDOMINAL PAIN Status: Acute Comment: likley due to diabetic gastroparesis.improving.On Amitzia and Marinol (2) UTI (urinary tract infection) Status: Chronic Qualifiers: Urinary tract infection type: acute cystitis Hematuria presence: without hematuria Qualified Code(s): N30.00 - Acute cystitis without hematuria Comment: Klebseilla-pansensitive (3) Hypokalemia Code(s): E87.6 - HYPOKALEMIA Status: Resolved Comment: replace and recheck prn (4) DM2 (diabetes mellitus, type 2) Status: Chronic Qualifiers: Comment: (5) Dyslipidemia Code(s): E78.5 - HYPERLIPIDEMIA, UNSPECIFIED Status: Chronic (6) Gastroparesis Code(s): K31.84 - GASTROPARESIS Status: Chronic (7) HTN (hypertension) Code(s): I10 - ESSENTIAL (PRIMARY) HYPERTENSION Status: Chronic Qualifiers: Comment: - Plan DVT proph w/SCDs cont supportive care. avoid any narcotics.cont marinol,amitzia -: if stable,puja DC home tomorrow morning -: Monitor lytes.cont PPI. -: cont ABx.change to PO on DC . -: stop scheduled reglan due to potential side effects. * . Review of Systems - Review of Systems Constitutional: weakness, malaise. negative: fever, chills, sweats, other Eyes: negative: Pain, Vision Change, Conjunctivae Inflammation, Eyelid Inflammation, Redness, Other Respiratory: negative: Cough, Dry, Shortness of Breath, Hemoptysis, SOB with Excertion, Pleuritic Pain, Sputum, Wheezing Cardiovascular: negative: chest pain, palpitations, orthopnea, paroxysmal nocturnal dyspnea, edema, light headedness, other Gastrointestinal: Abdominal Pain. negative: Nausea, Vomiting, Diarrhea, Constipation, Melena, Hematochezia, Other Genitourinary: negative: Dysuria, Frequency, Incontinence, Hematuria, Retention , Other Musculoskeletal: negative: Neck Pain, Shoulder Pain, Arm Pain, Back Pain, Hand Pain, Leg Pain, Foot Pain, Other Skin: negative: Rash, Lesions, Alexsander, Bruising, Other Neurological: negative: Weakness, Numbness, Incoordination, Change in Speech, Confusion, Seizures, Other - Medications/Allergies Allergies/Adverse Reactions: Allergies Allergy/AdvReac Type Severity Reaction Status Date / Time promethazine HCl Allergy Severe Verified 08/29/17 19:27 [From Phenergan] Medications: Current Medications Acetaminophen (Tylenol) 650 mg PO Q4H PRN PRN Reason: Headache/Fever or Pain Last Admin: 08/31/17 07:39 Dose: 650 mg Acetaminophen (Tylenol) 650 mg ND Q4H PRN PRN Reason: Headache/Fever or Pain Atorvastatin Calcium (Lipitor) 20 mg PO HS [facility] Last Admin: 08/31/17 21:28 Dose: 20 mg Bisacodyl (Dulcolax) 10 mg PO DAILYPRN PRN PRN Reason: Constipation Brimonidine Tartrate (Alphagan 0.2% Oph Soln) 1 drop EA EYE Q12H [facility] Last Admin: 09/01/17 09:32 Dose: 1 drop Clonidine (Catapres) 0.1 mg PO Q4H PRN PRN Reason: hypertension Last Admin: 08/30/17 14:35 Dose: 0.1 mg Dextrose/Water (Dextrose 50%) 25 gm SLOW IVP PRN PRN PRN Reason: Hypoglycemia Dronabinol (Marinol) 10 mg PO BID [facility] Last Admin: 09/01/17 09:32 Dose: 10 mg Enoxaparin Sodium (Lovenox) 40 mg SC 0900 [facility] Last Admin: 09/01/17 09:33 Dose: 40 mg Glimepiride (Amaryl) 2 mg PO QAM-WM [facility] Last Admin: 09/01/17 09:31 Dose: 2 mg Glucagon (Glucagon) 1 mg IM PRN PRN PRN Reason: Hypoglycemia Dextrose/Water (D5w) 1,000 mls @ 0 mls/hr IV .Q0M PRN; As Directed PRN Reason: Hypoglycemia Ceftriaxone Sodium 2 gm/ (Sodium Chloride) 100 mls @ 200 mls/hr IVPB Q24HR [facility] Last Admin: 09/01/17 00:34 Dose: 100 mls Insulin Human Lispro (Humalog) 0 units SC .MODERATE SLIDING SC PRN PRN Reason: Moderate Correctional Scale Last Admin: 08/31/17 11:13 Dose: 2 unit Insulin Human Lispro (Humalog) 0 units SC .BEDTIME SLIDING SC PRN PRN Reason: Bedtime Correctional Scale Last Admin: 08/30/17 21:07 Dose: 2 unit Latanoprost (Xalatan 0.005% Ophth Soln) 1 drop EA EYE HS [facility] Last Admin: 08/31/17 21:26 Dose: 1 drop Lisinopril (Zestril) 20 mg PO DAILY [facility] Last Admin: 09/01/17 09:31 Dose: 20 mg Lubiprostone (Amitiza) 8 mcg PO BID [facility] Last Admin: 09/01/17 09:31 Dose: 8 mcg Metoclopramide HCl (Reglan) 20 mg IVP 0100,0900,1700 [facility] Last Admin: 09/01/17 09:31 Dose: 20 mg Ondansetron HCl (Zofran) 8 mg IVP 0700,1500,2300 [facility] Last Admin: 09/01/17 06:26 Dose: 8 mg Ondansetron HCl (Zofran Odt) 4 mg PO Q6H PRN PRN Reason: Nausea/Vomiting Pantoprazole Sodium (Protonix) 40 mg PO BID [facility] Last Admin: 09/01/17 09:31 Dose: 40 mg Sertraline HCl (Zoloft) 50 mg PO DAILY [facility] Last Admin: 09/01/17 09:31 Dose: 50 mg Sodium Chloride (Flush - Normal Saline) 10 ml IVF PRN PRN PRN Reason: Saline Flush Last Admin: 08/31/17 10:05 Dose: 10 ml Timolol Maleate (Timoptic 0.5% Ophth Soln) 1 drop EA EYE BID [facility] Last Admin: 09/01/17 09:32 Dose: 1 drop
[2017-09-01] MEDS ORDERED: Metoclopramide 10 MG/10 ML UDCUP PO PRN (11:58)
[2017-09-01] MEDS: Atorvastatin Calcium 20 MG TAB PO SCH (21:20)
[2017-09-01] MEDS: Latanoprost 0.005% Ophth Soln 2.5 ml Bottle EA EYE SCH (21:21)
[2017-09-02] MEDS: cefTRIAXone\\ROCEPHIN 2 GM in Sodium Chloride 0.9% 100 ML IVPB SCH (01:20)
[2017-09-02] MEDS: Ondansetron HCl/PF 4 MG/2 ML Vial IVP SCH ×2 (06:50→08:12)
[2017-09-02 07:52] VITALS: TEMP 98.6
[2017-09-02] MEDS: Enoxaparin Sodium 40 MG/0.4 ML SYRINGE SC SCH (08:10)
[2017-09-02] MEDS: Lisinopril 20 MG TAB PO SCH (08:10)
[2017-09-02] MEDS: Lubiprostone 8 MCG CAP PO SCH (08:11)
[2017-09-02] MEDS: Timolol 0.5% Ophth Soln 5 ml Bottle EA EYE SCH (08:11)
[2017-09-02] MEDS: Glimepiride 2 MG TAB PO SCH (08:11)
[2017-09-02] MEDS: Brimonidine Tartrate 0.2% Ophth Soln 5 ml Bottle EA EYE SCH (08:12)
[2017-09-02] MEDS: Dronabinol 2.5 MG CAP PO SCH (09:13)
[2017-09-02 12:37] VITALS: BP 184/88
--- NOTE | 2017-09-02 23:19 | DIS ---
DATE OF ADMISSION: 08/29/2017 DATE OF DISCHARGE: 09/02/2017 CONDITION AT THE TIME OF DISCHARGE: Stable and improved. DISCHARGE DIAGNOSES: 1. Urinary tract infection due to Klebsiella. 2. Intractable abdominal pain and nausea secondary to diabetic gastroparesis. 3. Hypokalemia, resolved. 4. Diabetes. 5. Dyslipidemia. 6. Gastroparesis. 7. Hypertension. DISCHARGE MEDICATIONS: Bactrim 1 tablet double strength b.i.d. for 3 more days and resume home medic ations as follows: Amitiza 8 mcg p.o. b.i.d., omeprazole 40 mg b.i.d., dronabinol 10 mg p.o. b.i.d., Zoloft 50 mg a day, atorvastatin 20 mg daily, insulin glargine 50 units daily, glimepiride 2 mg levi y, Reglan 10 mg every 6 hours as needed, Glucophage 500 mg p.o. b.i.d., and Zofran as needed. CONSULTATIONS INHOUSE: Gastroenterology, Dr. Palmer and Dr. Davis. PROCEDURES DONE IN THE HOSPITAL: Include, 1. CT scan of the abdomen and pelvis which is negative for any significant acute process in the abdo men or pelvis. 2. EGD on 08/30/2017 which shows minimal nonerosive gastritis in the antrum. Biopsies negative for H. pylori, otherwise normal EGD. HISTORY OF PRESENTING ILLNESS: Ms. Pike is a 61-year-old female with known history of diabetic ga stroparesis which has been difficult to treat in the past as well as hypertension and dyslipidemia wh o presented to the emergency room with complaints of abdominal pain and nausea. She has been worked up as an outpatient in [facility] for gastroparesis with failure of multiple outpatient treatments. She was also found to have a urinary tract infection upon presentation. Please see admi ssion history and physical for further details. She was started on IV Reglan and Gastroenterology wa s consulted. She had hypokalemia upon presentation as well with a potassium of 2.8. This was correc nery as well. She had somewhat low blood pressure upon presentation, which was also treated. HOSPITAL COURSE: GI saw the patient. She underwent a CT scan of the abdomen and pelvis which was ne gative and she underwent an EGD which was unremarkable. Biopsies and H. pylori testing was negative as well. She was treated for urinary tract infection. Urine culture resulted in Klebsiella. She wa s treated with Rocephin, which was later changed to oral antibiotics based on the sensitivities. She had slow improvement in her symptoms with improvement of the urinary tract infection. Eventually , she was taken off of the IV Reglan and her symptoms are controlled on Amitiza, Marinol as well as, as needed Zofran. She was discharged on Zofran. She was seen and examined prior to discharge. PHYSICAL EXAMINATION: VITAL SIGNS: This morning temperature 98.6, pulse of 82, respirations 14, saturating 97% on room air , blood pressure 167/84. GENERAL: No acute distress, awake, alert, oriented x3. CHEST: Clear to auscultation without any wheezing, rales or rhonchi. Rhythm is regular without any murmurs, rubs, or gallops. ABDOMEN: Soft, nontender, and nondistended. LABORATORY DATA: Her blood culture has remain negative until date. Stool occult testing was negativ e. Urine culture shows Klebsiella pneumoniae. Discharge plan was discussed with the patient and her family who verbalized understanding. She will follow up with GI in the outpatient setting. Total time spent in the discharge of this patient was 33 minutes.
== END 2017-09-02 15:10 | disposition home health service (06) | DRG 74 ==
LOC: ERS 10:55 → 2NO 18:48 → ONC 08-31 12:32
PROVIDERS: ADMIT Emergency Medicine; ATTEND Emergency Medicine
PROC: 0DB98ZX Excision of Duodenum, Via Natural or Artificial Opening Endoscopic, Diagnostic (ICD-10-PCS; principal; 2017-08-30)
PROC: 0DB78ZX Excision of Stomach, Pylorus, Via Natural or Artificial Opening Endoscopic, Diagnostic (ICD-10-PCS; 2017-08-30)
DX: E11.43 Type 2 diabetes mellitus with diabetic autonomic (poly)neuropathy (principal); N30.00 Acute cystitis without hematuria; Z68.41 Body mass index [BMI] 40.0-44.9, adult; K31.84 Gastroparesis; E87.6 Hypokalemia; E78.5 Hyperlipidemia, unspecified; I10 Essential (primary) hypertension; K29.70 Gastritis, unspecified, without bleeding; E86.0 Dehydration; E66.01 Morbid (severe) obesity due to excess calories; I95.9 Hypotension, unspecified; B96.89 Other specified bacterial agents as the cause of diseases classified elsewhere
CPT/HCPCS: 36415; 36416; 74177; 80048; 80053; 81003; 81015; 82274; 82553; 83605; 83690; 84484; 85025; 86850; 86900; 86901; 87040; 87077; 87086; 87186; 88305; 88312; 93005; 94760; 96361; 96365; 96372; 96375; 96376; G8978-GP-CL; G8979-GP-CK; G8987-GO-CL; G8988-GO-CJ; J0696; J1650; J2001; J2270; J2405; J2704; J2765; J3480; J7050; Q0167

== ENCOUNTER 2017-09-08 11:03 | Observation (INO) | payer OTHER, MEDICARE ==
[2017-09-08] MEDS ORDERED: Ondansetron ODT 4 MG TAB ONE (11:50)
[2017-09-08 12:32] LABS: ALT (SGPT) 19 U/L (8-55); AST (SGOT) 24 U/L (5-34); Albumin 3.9 g/dL (3.4-4.8); Alkaline Phosphatase 92 U/L (40-150); Anion Gap 12 mmol/L (10-20); BUN (Urea Nitrogen) 28 mg/dL (9.8-20.1); Calc. Creatinine Clearance 0 mL/min (70-130); Calcium 9.5 mg/dL (7.8-10.44); Carbon Dioxide 34 mmol/L (23-31); Chloride 86 mmol/L (98-107); Estimated GFR-MDRD 25; Globulin 3.3 g/dL (2.4-3.5); Glucose 170 mg/dL (80-115); Lipase 61 U/L (8-78); Protein, Total 7.2 g/dL (6.0-8.3); Sodium 129 mmol/L (136-145)
[2017-09-08 12:34] LABS: #Lymphocytes 1.7 thou/uL (1.20-3.40); #Monocytes 0.6 thou/uL (0.11-0.59); #Neutrophils 5.7 thou/uL (1.40-6.50); %Basophils 0.6 % (0.0-1.0); %Eosinophils 0.3 % (0.0-10.0); %Lymphocytes 21.2 % (21.0-51.0); %Monocytes 6.8 % (0.0-10.0); %Neutrophils 71.1 % (42.0-75.0); Hemoglobin 10.8 g/dL (12.0-16.0); Mean Corpuscular HGB CONC 35.3 g/dL (32.0-36.0); Mean Corpuscular Hemoglobin 30.8 pg (27.0-31.0); Mean Corpuscular Volume 87.1 fL (78.0-98.0); Mean Platelet Volume 6.9 fL (7.4-10.4); Platelet Count 305 thou/uL (130-400); Potassium 2.7 mmol/L (3.5-5.1); RBC Distribution Width 12.4 % (11.5-14.5)
[2017-09-08 12:36] LABS: CKMB 1.8 ng/mL (0-6.6); Troponin I 0.013 ng/mL (< 0.028)
--- NOTE | 2017-09-08 13:24 | RAD ---
PORTABLE CHEST ONE VIEW: Date: 09-08-17 Time: 12:29 p.m. History: Cough, dehydration. FINDINGS: Comparison made with exam of 08-03-17. The heart size is normal. The aorta is tortuous. No focal areas of consolidation or pneumothorax or p leural effusions are seen. IMPRESSION: No radiographic evidence of acute cardiopulmonary process. POS: [facility]
[2017-09-08] MEDS ORDERED: Potassium Chloride 20 MEQ TAB ONE (14:34)
[2017-09-08 14:46] LABS: Bilirubin Negative (Negative); Blood, Urine Negative (Negative); Clarity CLEAR (Clear); Glucose, Urine (Dipstick) Negative (Negative); Leukocyte Moderate (Negative); Nitrite Negative (Negative); Protein, Urine (Dipstick) Trace mg/dL (Neg-Trace); Specific Gravity, Urine 1.018 (1.002-1.036); Urobilinogen 0.2 mg/dL (0.2-1.0)
[2017-09-08 14:53] LABS: Bacteria/HPF None Seen HPF (None Seen); Hyaline Casts/LPF 4-6 HYALINE CAST LPF (0-3 Hyaline); Pathc Cast-AUWi Flag 0.72 (0-2.49); RBC/HPF 0-3 HPF (0-3)
[2017-09-08 14:54] LABS: Yeast-AUWi Flag 30.2 (0-25.0)
[2017-09-08 15:02] LABS: Yeast-All Forms None Seen HPF (None Seen)
[2017-09-08] MEDS ORDERED: Ondansetron HCl/PF 4 MG/2 ML Vial IVP PRN (15:12)
[2017-09-08] MEDS ORDERED: Guaifenesin DM 100-10/5 ML UDCUP PO PRN (15:12)
[2017-09-08] MEDS ORDERED: Dextrose 50% Abboject 50 ML SYRINGE SLOW IVP PRN (15:12)
[2017-09-08] MEDS ORDERED: Dextrose 5% in Water 1,000 ML IV PRN (15:12)
[2017-09-08] MEDS ORDERED: Acetaminophen 325 MG TAB PO PRN (15:12)
[2017-09-08] MEDS ORDERED: HumaLOG 300 UNITS/3 ML VIAL SC PRN ×2 (15:12)
[2017-09-08 15:52] VITALS: BMI 34.4
--- NOTE | 2017-09-08 16:19 | HP ---
REASON FOR ADMISSION: Moderate dehydration with acute kidney injury and hypokalemia. HISTORY OF PRESENT ILLNESS: The patient gives history of having been diagnosed with gastroparesis from last 8 months. She got discharged last Tuesday. She has been feeling nauseated ever since and has not been able to eat or drink much. She also states that she has loss of appetite. She has one loose stool on a daily basis. No blood or mucus in it. She normally ambulates with a walker. She has had right ankle fused and has difficulty ambulating. The patient does mention that her home health and PT is activated to come from this week. No complaints of chest pain, palpitation, PND or orthopnea. No complaints of fever. No complaints of abdominal pain at present. PAST MEDICAL AND SURGICAL HISTORY: Diabetes mellitus type 2, hypertension, dyslipidemia, obesity, diabetic gastroparesis, glaucoma, bilateral cataract surgery, cholecystectomy, hysterectomy, tonsillectomy, left foot surgery for Charcot joint. PERSONAL HISTORY: Does not abuse alcohol or drugs. No history of smoking. Lives with her . FAMILY HISTORY: Multiple family members have history of high blood pressure and diabetes. CURRENT MEDICATIONS: Patient is on atorvastatin 20 mg p.o. daily, dronabinol 10 mg twice daily, glimepiride 10 mg daily, Lantus 50 units subcu daily, Amitiza 8 mcg twice daily, metformin 500 mg twice daily, Reglan 10 mg p.o. before meals, omeprazole 40 mg twice daily, Florastor 250 mg daily, sertraline 50 mg daily, Bactrim twice daily which was prescribed on the for cellulitis. ALLERGIES: PROMETHAZINE. CODE STATUS: FULL. Power of contract attorney is her . REVIEW OF SYSTEMS: The following complete review of systems was negative, unless otherwise mentioned in the HPI or below: Constitutional: Weight loss or gain, ability to conduct usual activities. Skin: Rash, itching. Eyes: Double vision, pain. ENT/Mouth: Nose bleeding, neck stiffness, pain, tenderness. Cardiovascular: Palpitations, dyspnea on exertion, orthopnea. Respiratory: Shortness of breath, wheezing, cough, hemoptysis, fever or night sweats. Gastrointestinal: Poor appetite, abdominal pain, heartburn, nausea, vomiting, constipation, or diarrhea. Genitourinary: Urgency, frequency, dysuria, nocturia. Musculoskeletal: Pain, swelling. Neurologic/Psychiatric: Anxiety, depression. Allergy/Immunologic: Skin rash, bleeding tendency. PHYSICAL EXAMINATION: GENERAL: Patient is a 61-year-old female who is currently not in any acute distress. VITAL SIGNS: Blood pressure 94/66, pulse 76 per minute, respiratory rate is 16 per minute, temperature 98.4 degrees Fahrenheit, saturating 100% on room air. NECK: Supple, no elevated JVD. HEENT: Eyes, extraocular muscles intact. Pupils reacting to light. Oral cavity mucous membranes are dry. No exudates or congestion. CARDIOVASCULAR: S1, S2 heard. Regular rhythm. RESPIRATORY: Rhonchi plus bilaterally. ABDOMEN: Soft, bowel sounds heard. No tenderness, rigidity or guarding. EXTREMITIES: No peripheral edema or calf tenderness. VASCULAR SYSTEM: Peripheral pulses 1+ bilateral, no ischemic ulcerations or gangrene. CENTRAL NERVOUS SYSTEM: No gross focal deficits seen. Patient is alert, awake , oriented well. PSYCHIATRIC: The patient's mood is euthymic. No hallucinations or delusions. LABORATORY AND X-RAY FINDINGS: Chest x-ray done shows no acute cardiopulmonary abnormalities. EKG done shows normal sinus rhythm at 80 beats per minute, no gross ST-T wave changes. White count of 8, H and H 10 and 30, platelet count 305 with 71% neutrophils, MCV is 87. Sodium 129, potassium 2.7, serum bicarbonate 34, BUN 28, creatinine 2.0. Glucose 170. Liver enzymes within normal limits. Cardiac enzymes are negative. Lipase is 61, albumin is 3.9. UA shows moderate leukoesterase with no bacteria seen with 4-6 wbc's seen. CLINICAL IMPRESSION AND PLAN: The patient will be under observation on medical floor for acute kidney injury with moderate dehydration. The patient has known history of gastroparesis and has not been able to eat or drink from last 2-3 days now. Patient is already on Reglan and she is allergic to PROMETHAZINE. We will continue her on Reglan and Zofran as needed along with dronabinol and Megace for appetite stimulation. We will continue all her home medications as before. She will be hydrated with normal saline at 100 mL per hour. She will be on K-Dur 40 mEq p.o. q.6 hourly for a total of 6 doses. We will obtain labs in the morning to see if her electrolytes have stabilized. She is otherwise hemodynamically stable at present. [facility]
[2017-09-08] MEDS: Sodium Chloride 0.9% 1,000 ML IV SCH (16:50)
[2017-09-08] MEDS: metFORMIN 500 MG TAB PO SCH (16:51)
[2017-09-08] MEDS: Potassium Chloride 20 MEQ TAB PO SCH ×2 (16:51→20:17)
[2017-09-08] MEDS: Dronabinol 2.5 MG CAP PO SCH (18:12)
[2017-09-08] MEDS: Metoclopramide HCl 10 MG TAB PO SCH (18:12)
[2017-09-08] MEDS: Megestrol Acetate 40 MG TAB PO SCH (20:16)
[2017-09-08] MEDS: Lubiprostone 8 MCG CAP PO SCH (20:17)
[2017-09-08] MEDS: Docusate 100 MG CAP PO SCH (20:18)
[2017-09-08] MEDS: Timolol 0.5% Ophth Soln 5 ml Bottle EA EYE SCH (20:20)
[2017-09-08] MEDS: Brimonidine Tartrate 0.2% Ophth Soln 5 ml Bottle EA EYE SCH (20:20)
[2017-09-08] MEDS ORDERED: Latanoprost 0.005% Ophth Soln 2.5 ml Bottle EA EYE SCH (21:00)
[2017-09-08] MEDS ORDERED: Famotidine 20 MG TAB PO SCH (21:00)
[2017-09-09] MEDS: Metoclopramide HCl 10 MG TAB PO SCH ×2 (00:07→05:36)
[2017-09-09] MEDS: Sodium Chloride 0.9% 1,000 ML IV SCH ×2 (02:30→11:48)
[2017-09-09] MEDS: Potassium Chloride 20 MEQ TAB PO SCH ×2 (03:54→09:12)
[2017-09-09 04:53] LABS: #Eosinphils 0.1 thou/uL (0.0-0.7); #Lymphocytes 2.5 thou/uL (1.20-3.40); #Monocytes 0.5 thou/uL (0.11-0.59); #Neutrophils 4.9 thou/uL (1.40-6.50); %Basophils 0.2 % (0.0-1.0); %Eosinophils 0.6 % (0.0-10.0); %Lymphocytes 31.3 % (21.0-51.0); %Monocytes 5.9 % (0.0-10.0); Hemoglobin 9.6 g/dL (12.0-16.0); Mean Corpuscular HGB CONC 34.5 g/dL (32.0-36.0); Mean Corpuscular Hemoglobin 30.7 pg (27.0-31.0); Mean Corpuscular Volume 89.1 fL (78.0-98.0); Mean Platelet Volume 6.9 fL (7.4-10.4); Platelet Count 261 thou/uL (130-400); RBC Distribution Width 12.6 % (11.5-14.5); Red Blood Cell (RBC) Count 3.11 mill/uL (4.20-5.40); White Blood Cell (WBC) Count 7.9 thou/uL (4.8-10.8)
[2017-09-09 05:13] LABS: Anion Gap 10 mmol/L (10-20); BUN (Urea Nitrogen) 22 mg/dL (9.8-20.1); Calc. Creatinine Clearance 69 mL/min (70-130); Calcium 8.6 mg/dL (7.8-10.44); Carbon Dioxide 30 mmol/L (23-31); Chloride 97 mmol/L (98-107); Estimated GFR-MDRD 48; Glucose 134 mg/dL (80-115); Potassium 3.6 mmol/L (3.5-5.1); Sodium 133 mmol/L (136-145)
[2017-09-09] MEDS ORDERED: Atorvastatin Calcium 20 MG TAB PO SCH (07:30)
[2017-09-09] MEDS ORDERED: INSULIN GLARGINE HUM REC ANLOG 50 UNIT SQ SCH (07:30)
[2017-09-09] MEDS ORDERED: Insulin Glargine 50 UNITS in Pre-Filled Syringe SC SCH (07:30)
[2017-09-09] MEDS ORDERED: Glimepiride 2 MG TAB PO SCH (08:00)
[2017-09-09] MEDS ORDERED: Enoxaparin Sodium 30 MG/0.3 ML SYRINGE SC SCH (09:00)
[2017-09-09] MEDS ORDERED: Saccharomyces boulardii 250 MG CAP PO SCH (09:00)
[2017-09-09] MEDS: metFORMIN 500 MG TAB PO SCH (09:06)
[2017-09-09] MEDS: Brimonidine Tartrate 0.2% Ophth Soln 5 ml Bottle EA EYE SCH (09:09)
[2017-09-09] MEDS: Timolol 0.5% Ophth Soln 5 ml Bottle EA EYE SCH (09:09)
[2017-09-09] MEDS: Docusate 100 MG CAP PO SCH (09:10)
[2017-09-09] MEDS: Lubiprostone 8 MCG CAP PO SCH (10:55)
[2017-09-09] MEDS: Megestrol Acetate 40 MG TAB PO SCH (10:55)
[2017-09-09] MEDS: Dronabinol 2.5 MG CAP PO SCH (10:59)
--- NOTE | 2017-09-09 11:36 | PDOC.PN ---
- Subjective Encounter Start Date: 09/09/17 Encounter Start Time: 07:25 Subjective: no nausea or vomiting, is tolerating oral diet -: at bedside - Objective Resuscitation Status: Resuscitation Status FULL:Full Resuscitation MAR Reviewed: Yes Vital Signs & Weight: Vital Signs (12 hours) Temp Pulse Resp BP BP Pulse Ox 09/09/17 09:20 98.6 F 79 20 09/09/17 07:28 98.6 F 79 20 144/65 H 99 09/09/17 02:30 98.2 F 68 16 106/62 09/08/17 23:38 98.0 F 66 16 98/54 L 97 Weight Weight 186 lb 4.8 oz I&O: 09/08/17 09/09/17 09/10/17 06:59 06:59 06:59 Intake Total 1941 Output Total 425 Balance 1516 Result Diagrams: 09/09/17 04:39 09/09/17 04:39 Additional Labs: Accuchecks 09/08/17 09/08/17 20:32 17:10 POC Glucose 173 H 117 H Phys Exam - Physical Examination HEENT: PERRLA, moist MMs Neck: no JVD, supple Respiratory: no wheezing, no rales Cardiovascular: RRR, no significant murmur Gastrointestinal: soft, non-tender, positive bowel sounds Musculoskeletal: no edema, pulses present Neurological: non-focal, moves all 4 limbs Psychiatric: normal affect, A&O x 3 Dx/Plan (1) Dehydration Code(s): E86.0 - DEHYDRATION Status: Resolved (2) Acute kidney failure Status: Resolved (3) DM2 (diabetes mellitus, type 2) Status: Chronic Qualifiers: Diabetes mellitus adjunct faculty for medical terminology insulin use: with adjunct faculty for medical terminology use Diabetes mellitus complication status: with unspecified complications Qualified Code(s) : E11.8 - Type 2 diabetes mellitus with unspecified complications; Z79.4 - skilled nursing (current) use of insulin; Z79.4 - skilled nursing (current) use of insulin; Z79.4 - skilled nursing (current) use of insulin; Z79.4 - assistant terminal manager (current) use of insulin Comment: (4) Dyslipidemia Code(s): E78.5 - HYPERLIPIDEMIA, UNSPECIFIED Status: Chronic (5) Gastroparesis Code(s): K31.84 - GASTROPARESIS Status: Chronic (6) HTN (hypertension) Code(s): I10 - ESSENTIAL (PRIMARY) HYPERTENSION Status: Chronic Qualifiers: Hypertension type: essential hypertension Comment: (7) Hypokalemia Code(s): E87.6 - HYPOKALEMIA Status: Resolved - Plan marni and moderate dehydration resolved -: dc pt home, d/w pt and -: electrolytes are stable -: to continue megace daily * .
[2017-09-09 11:48] VITALS: BP 127/59; TEMP 98
--- NOTE | 2017-09-10 00:56 | DIS ---
DATE OF ADMISSION: 09/08/2017 DATE OF DISCHARGE: 09/09/2017 DISCHARGE DISPOSITION: To home. PRIMARY DISCHARGE DIAGNOSES: Intractable nausea and vomiting with moderate dehydration and acute kid paola injury. SECONDARY DISCHARGE DIAGNOSES: History of chronic gastroparesis, diabetes mellitus type 2, dyslipide tasia, hypertension, hypokalemia on admission resolved. PROCEDURES DONE DURING HOSPITALIZATION: H and H 10 and 27, platelet count 261. Initial potassium of 2.7 and sodium of 129 with discharge numbers of 133 and 3.6 of potassium, BUN and creatinine of 28 a nd 2.0 on admission with discharge BUN and creatinine of 22 and 1.1. One set of cardiac enzymes are negative. Chest x-ray done on the day of admission showed no acute cardiopulmonary process. DISCHARGE MEDICATIONS: Glimepiride 2 mg p.o. q.a.m., atorvastatin 20 mg p.o. daily, alprazolam 1 mg p.o. 3 times daily p.r.n. for anxiety, Lantus 50 units subcu twice daily, Amitiza 8 mcg p.o. twice da lissy, Megace 40 mg p.o. daily, metformin 500 mg p.o. twice daily, Reglan 10 mg p.o. 4 times daily befo re meals p.r.n. for nausea, vomiting, Florastor 250 mg daily, Zoloft 50 mg p.o. daily, eyedrops as be fore. ALLERGIES: PROMETHAZINE. DISCHARGE PLAN: The patient to follow up with primary care physician in 1 week. BRIEF COURSE DURING HOSPITALIZATION: The patient initially came to ER with complaints of severe naus ea and vomiting and unable to eat with loss of appetite. The patient has known history of gastropare sis and has had recent hospitalization as well. The patient had acute kidney injury with moderate de hydration and hypokalemia as well on admission. She was gently hydrated during her stay here. She w as placed back on her home medications. She was also placed on Megace to help for appetite stimulant . Potassium was replaced. This morning she is able to tolerate her breakfast. She is also feeling better. The patient was counseled with regard to adequate hydration and eating. She has also counse led with regard to medication compliance. Please see a [id number] documentation on [facility] for day of discharge. She is hemodynamically stable and her renal function is also stabilizing with he r potassium normalizing prior to discharge.
== END 2017-09-09 11:54 | disposition home or self-care (01) ==
LOC: ERS 11:03 → 2SW 14:14
PROVIDERS: ADMIT Internal Medicine; ATTEND Internal Medicine
DX: N17.9 Acute kidney failure, unspecified (principal); E86.0 Dehydration; E11.43 Type 2 diabetes mellitus with diabetic autonomic (poly)neuropathy; K31.84 Gastroparesis; E78.5 Hyperlipidemia, unspecified; I10 Essential (primary) hypertension; E87.6 Hypokalemia; Z88.8 Allergy status to other drugs, medicaments and biological substances; Z79.4 Long term (current) use of insulin; Z79.899 Other long term (current) drug therapy
CPT/HCPCS: 36415; 36416; 71045; 80048; 80053; 81003; 81015; 82553; 83690; 84484; 85025; 93005; 96360; 96361; G0378; J1650; Q0162; Q0167; S0179

== ENCOUNTER 2017-11-29 07:14 | Inpatient (IN) | payer OTHER, MEDICARE ==
[2017-11-28 10:59] VITALS: BMI 34.4
[2017-11-29] MEDS ORDERED: cefOXitin 2 GM VIAL ONE (07:38)
[2017-11-29] MEDS ORDERED: Sodium Chloride 0.9% 100 ML ONE (07:38)
[2017-11-29] MEDS ORDERED: Fentanyl 100 MCG/2 ML VIAL ONE ×3 (09:36→13:01)
[2017-11-29] MEDS ORDERED: Bupivacaine/Epinephrine 0.25% 30 ML VIAL ONE (09:42)
[2017-11-29] MEDS ORDERED: Glycopyrrolate 0.2 MG/ML 5 ML SYRINGE ONE (11:18)
[2017-11-29] MEDS ORDERED: Promethazine HCl 25 MG/ML VIAL ONE (12:15)
[2017-11-29] MEDS ORDERED: PROPOFOL 200 MG/20 ML VIAL ONE (13:45)
[2017-11-29] MEDS ORDERED: Lidocaine 1% PF 5 ML VIAL ONE (13:45)
[2017-11-29] MEDS ORDERED: Dexamethasone 20 MG/5 ML VIAL ONE (13:45)
[2017-11-29] MEDS ORDERED: Ondansetron HCl/PF 4 MG/2 ML Vial ONE ×2 (13:45→14:58)
[2017-11-29] MEDS ORDERED: ePHEDrine/0.9% NaCl/PF SYRINGE 50 mg/10 ml ONE (13:45)
[2017-11-29] MEDS ORDERED: Metoclopramide HCl 10 MG/2 ML VIAL ONE (14:59)
[2017-11-29] MEDS ORDERED: Labetalol HCl 100 MG/20 ML VIAL ONE (15:01)
[2017-11-29] MEDS ORDERED: Ondansetron HCl/PF 4 MG/2 ML Vial SLOW IVP PRN (16:07)
[2017-11-29] MEDS ORDERED: Labetalol HCl 100 MG/20 ML VIAL SLOW IVP SCH (16:15)
[2017-11-29] MEDS ORDERED: Metoclopramide HCl 10 MG/2 ML VIAL IVP SCH (16:15)
[2017-11-29] MEDS ORDERED: Morphine 4 MG/ML VIAL SLOW IVP PRN (16:43)
[2017-11-29] MEDS ORDERED: Dextrose 5% in Water 1,000 ML IV PRN (16:43)
[2017-11-29] MEDS ORDERED: HYDROcodone/Acetaminophen 10/325 mg Tablet PO PRN (16:43)
[2017-11-29] MEDS ORDERED: Dextrose 50% Abboject 50 ML SYRINGE SLOW IVP PRN (16:43)
[2017-11-29] MEDS ORDERED: TRIMETHOBENZAMIDE HCL 300 MG PO PRN (16:43)
[2017-11-29] MEDS ORDERED: hydrALAZINE 20 MG/ML VIAL SLOW IVP PRN (16:43)
[2017-11-29] MEDS: Sodium Chloride 0.9% 1,000 ML IV SCH (17:02)
[2017-11-29] MEDS: metFORMIN 500 MG TAB PO SCH (17:02)
[2017-11-29] MEDS: HYDROcodone/Acetaminophen 10/325 mg Tablet PO PRN (17:03)
[2017-11-29] MEDS: Lubiprostone 8 MCG CAP PO SCH (18:13)
[2017-11-29] MEDS: Ondansetron HCl/PF 4 MG/2 ML Vial IVP PRN (18:13)
[2017-11-29] MEDS: HumaLOG 300 UNITS/3 ML VIAL SC PRN (18:53)
[2017-11-29] MEDS: Famotidine 20 MG TAB PO SCH (21:50)
[2017-11-29] MEDS: Enoxaparin Sodium 40 MG/0.4 ML SYRINGE SC SCH (21:50)
[2017-11-29] MEDS: Metoclopramide HCl 10 MG TAB PO SCH (21:51)
[2017-11-29] MEDS ORDERED: ALPRAZolam 1 MG TAB PO PRN (21:51)
[2017-11-29] MEDS: Timolol 0.5% Ophth Soln 5 ml Bottle EA EYE SCH (21:51)
[2017-11-29] MEDS: Latanoprost 0.005% Ophth Soln 2.5 ml Bottle EA EYE SCH (21:51)
[2017-11-29] MEDS: Brimonidine Tartrate 0.2% Ophth Soln 5 ml Bottle EA EYE SCH (21:52)
[2017-11-30] MEDS: Famotidine/PF 20 mg/2ml Vial SLOW IVP SCH ×3 (00:09→21:07)
[2017-11-30] MEDS: HYDROcodone/Acetaminophen 10/325 mg Tablet PO PRN ×3 (05:32→20:58)
[2017-11-30] MEDS: metFORMIN 500 MG TAB PO SCH ×2 (08:57→16:37)
[2017-11-30] MEDS: Metoclopramide HCl 10 MG TAB PO SCH ×4 (08:57→21:03)
[2017-11-30] MEDS: Famotidine 20 MG TAB PO SCH ×2 (08:57→21:05)
[2017-11-30] MEDS: Lubiprostone 8 MCG CAP PO SCH ×2 (08:57→16:37)
[2017-11-30] MEDS: Brimonidine Tartrate 0.2% Ophth Soln 5 ml Bottle EA EYE SCH ×2 (08:58→21:06)
[2017-11-30] MEDS: Timolol 0.5% Ophth Soln 5 ml Bottle EA EYE SCH ×3 (08:59→21:01)
[2017-11-30] MEDS: PARoxetine CR 12.5 MG TAB PO SCH (09:09)
[2017-11-30] MEDS: Glimepiride 2 MG TAB PO SCH (09:10)
[2017-11-30] MEDS: HumaLOG 300 UNITS/3 ML VIAL SC PRN (12:27)
[2017-11-30] MEDS: Ondansetron HCl/PF 4 MG/2 ML Vial IVP PRN (12:30)
[2017-11-30] MEDS: Sodium Chloride 0.9% 1,000 ML IV SCH (12:35)
--- NOTE | 2017-11-30 13:10 | OP ---
DATE OF PROCEDURE: 11/29/2017 PREOPERATIVE DIAGNOSES: 1. Gastroparesis, severe, associated with diabetes mellitus, insulin-dependent. 2. Protein calorie malnutrition. POSTOPERATIVE DIAGNOSES: 1. Gastroparesis, severe, associated with diabetes mellitus, insulin-dependent. 2. Protein calorie malnutrition. PROCEDURE: Open jejunostomy tube, 14 Setswana red rubber. SURGEON: Foreign Roca M.D. ANESTHESIA: General. ESTIMATED BLOOD LOSS: Minimal. COMPLICATIONS: None. TECHNIQUE: The patient was taken to the operating room and placed supine on the table. After genera l anesthetic was obtained, a Molina was placed. The abdomen is prepped and draped in sterile fashion. Midline incision is made down into the abdominal cavity. Ligament of Treitz was found at a distanc e of 20 cm marched distally at this location, a pursestring of silk was placed on the antimesenteric surface of the small bowel. A 14 red rubber catheter brought in through a stab incision in the left abdomen. The end of it is placed into the small bowel and the pursestring is tied down. A Witzel tu nnel was then made on the antimesenteric surface using 3-0 silk pop offs. The jejunostomy, small bow el side is pulled up against the posterior peritoneum and serosal sutures are placed to the posterior peritoneum. No obvious twist of the small intestine in this area. Midline fascia was closed with # 1 PDS from the top and the bottom and tied in the middle. Subcutaneous tissues are irrigated. The s kin was closed using 3-0 Vicryl, 4-0 Monocryl, and Dermabond. The patient was en route to recovery i n stable condition. All instrument counts, needle counts, lap counts are correct.
[2017-11-30] MEDS ORDERED: Sodium Bicarbonate Tab 325 MG TAB PER TUBE PRN (14:04)
[2017-11-30] MEDS ORDERED: Pancrelipase DR 12000 1 CAP FS PRN (14:04)
[2017-11-30] MEDS: Enoxaparin Sodium 40 MG/0.4 ML SYRINGE SC SCH (21:00)
[2017-11-30] MEDS: Latanoprost 0.005% Ophth Soln 2.5 ml Bottle EA EYE SCH (21:07)
[2017-12-01] MEDS: HumaLOG 300 UNITS/3 ML VIAL SC PRN ×2 (01:06→12:11)
[2017-12-01] MEDS: Ondansetron HCl/PF 4 MG/2 ML Vial IVP PRN (05:54)
[2017-12-01] MEDS: Metoclopramide HCl 10 MG TAB PO SCH ×4 (08:39→21:22)
[2017-12-01] MEDS: Famotidine 20 MG TAB PO SCH ×2 (08:39→21:36)
[2017-12-01] MEDS: Lubiprostone 8 MCG CAP PO SCH ×2 (08:39→16:11)
[2017-12-01] MEDS: metFORMIN 500 MG TAB PO SCH ×2 (08:39→16:12)
[2017-12-01] MEDS: Brimonidine Tartrate 0.2% Ophth Soln 5 ml Bottle EA EYE SCH ×2 (08:40→21:39)
[2017-12-01] MEDS: Timolol 0.5% Ophth Soln 5 ml Bottle EA EYE SCH ×2 (08:40→21:37)
[2017-12-01] MEDS: Glimepiride 2 MG TAB PO SCH (08:44)
[2017-12-01] MEDS: Sodium Chloride 0.9% 1,000 ML IV SCH (08:45)
[2017-12-01] MEDS: Famotidine/PF 20 mg/2ml Vial SLOW IVP SCH ×2 (08:45→21:52)
[2017-12-01] MEDS: PARoxetine CR 12.5 MG TAB PO SCH (08:47)
--- NOTE | 2017-12-01 09:14 | PDOC.GSPN ---
Surgery Progress Note: Subj - Subjective Narrative: Pain controlled. No nausea, TF at 35ml/hr Surgery Progress Note: Obj - Vital signs Vital signs: Vital Signs - Most Recent Temp Pulse Resp BP Pulse Ox 99.4 F 102 H 15 124/81 96 12/01/17 08:40 12/01/17 08:40 12/01/17 08:40 12/01/17 08:40 12/01/17 08:40 - Physical Exam General: no distress Cardiovascular: regular rate and rhythm Respiratory: clear to auscultation Abdomen: soft, nondistended, appropriately tender Wound: dressing clean,dry,intact Surgery Progress Note: Results - Labs Lab results: Laboratory Results - last 24 hr 12/01/17 12/01/17 00:12 06:16 POC Glucose 171 H 126 H Surgery Progress Note: A/P - Problem (1) Gastroparesis Current Visit: No Code(s): K31.84 - GASTROPARESIS Status: Chronic (2) Protein calorie malnutrition Current Visit: Yes Code(s): E46 - UNSPECIFIED PROTEIN-CALORIE MALNUTRITION Status: Acute - Plan Plan: POD 2 open J tube -TF in hospital today -Likely home with home health tomorrow
[2017-12-01] MEDS: HYDROcodone/Acetaminophen 10/325 mg Tablet PO PRN (14:38)
[2017-12-01] MEDS: Latanoprost 0.005% Ophth Soln 2.5 ml Bottle EA EYE SCH (21:21)
[2017-12-01] MEDS: Enoxaparin Sodium 40 MG/0.4 ML SYRINGE SC SCH (21:40)
[2017-12-02] MEDS: Ondansetron HCl/PF 4 MG/2 ML Vial IVP PRN ×2 (04:04→19:17)
[2017-12-02] MEDS ORDERED: Diphenoxylate HCl/Atropine Tablet PO PRN (04:44)
[2017-12-02] MEDS ORDERED: Diphenoxylate HCl/Atropine Tablet PO SCH (04:45)
[2017-12-02] MEDS: Famotidine/PF 20 mg/2ml Vial SLOW IVP SCH ×2 (07:44→20:40)
[2017-12-02 08:40] LABS: #Eosinphils 0.1 thou/uL (0.0-0.7); #Lymphocytes 0.8 thou/uL (1.20-3.40); #Monocytes 0.4 thou/uL (0.11-0.59); #Neutrophils 7.4 thou/uL (1.40-6.50); %Basophils 0.2 % (0.0-1.0); %Eosinophils 0.7 % (0.0-10.0); %Lymphocytes 9.4 % (21.0-51.0); %Monocytes 4.9 % (0.0-10.0); %Neutrophils 84.9 % (42.0-75.0); Hemoglobin 9.3 g/dL (12.0-16.0); Mean Corpuscular HGB CONC 33.7 g/dL (32.0-36.0); Mean Corpuscular Hemoglobin 30.8 pg (27.0-31.0); Mean Corpuscular Volume 91.3 fL (78.0-98.0); Mean Platelet Volume 7.3 fL (7.4-10.4); Platelet Count 284 thou/uL (130-400); Red Blood Cell (RBC) Count 3.03 mill/uL (4.20-5.40); White Blood Cell (WBC) Count 8.7 thou/uL (4.8-10.8)
[2017-12-02] MEDS: PARoxetine CR 12.5 MG TAB PO SCH (08:55)
[2017-12-02] MEDS: Lubiprostone 8 MCG CAP PO SCH ×2 (08:56→16:11)
[2017-12-02] MEDS: Glimepiride 2 MG TAB PO SCH (08:57)
[2017-12-02] MEDS: metFORMIN 500 MG TAB PO SCH ×2 (08:57→16:10)
[2017-12-02] MEDS: Metoclopramide HCl 10 MG TAB PO SCH ×4 (08:58→21:00)
[2017-12-02] MEDS: Timolol 0.5% Ophth Soln 5 ml Bottle EA EYE SCH ×2 (09:00→21:02)
[2017-12-02 09:01] LABS: Anion Gap 12 mmol/L (10-20); BUN (Urea Nitrogen) 7 mg/dL (9.8-20.1); Calc. Creatinine Clearance 117 mL/min (70-130); Calcium 8.8 mg/dL (7.8-10.44); Carbon Dioxide 32 mmol/L (23-31); Chloride 95 mmol/L (98-107); Estimated GFR-MDRD Greater than 90; Glucose 161 mg/dL (80-115); Potassium 3.6 mmol/L (3.5-5.1); Sodium 135 mmol/L (136-145)
[2017-12-02] MEDS: Brimonidine Tartrate 0.2% Ophth Soln 5 ml Bottle EA EYE SCH ×2 (09:02→21:01)
[2017-12-02] MEDS: Famotidine 20 MG TAB PO SCH ×2 (10:18→21:00)
--- NOTE | 2017-12-02 11:09 | PRG ---
DATE OF SERVICE: 12/02/2017 SUBJECTIVE: Ms. Pike is doing well now. She did have some nausea overnight. She is concerned be cause she is having loose stools with the tube feeds and that was keeping her up last night. PHYSICAL EXAMINATION: VITAL SIGNS: She is afebrile. Vital signs are stable. ABDOMEN: Soft, nontender, minimally distended. She has active bowel sounds. Her wound is healing w ell. LABORATORY: White cell count of 8.7, hemoglobin 9.3, creatinine of 0.66. Sugars have been in the 14 0S to 150s, 160 this morning. ASSESSMENT: Postop day 3 open J-tube with occasional nausea and having loose stools now. PLAN: We have a C. diff pending. We will discuss with the dietitian whether they can alter her rate or maybe run just during the day, so it does not keep her up at night. Make sure she is tolerating these tube feeds better before she gets discharged home.
[2017-12-02] MEDS: HumaLOG 300 UNITS/3 ML VIAL SC PRN ×2 (13:04→18:16)
[2017-12-02] MEDS: Enoxaparin Sodium 40 MG/0.4 ML SYRINGE SC SCH (21:00)
[2017-12-02] MEDS: HYDROcodone/Acetaminophen 10/325 mg Tablet PO PRN (21:00)
[2017-12-02] MEDS: Latanoprost 0.005% Ophth Soln 2.5 ml Bottle EA EYE SCH (21:01)
[2017-12-03] MEDS: metFORMIN 500 MG TAB PO SCH ×2 (08:48→17:08)
[2017-12-03] MEDS: Famotidine/PF 20 mg/2ml Vial SLOW IVP SCH ×2 (08:49→22:07)
[2017-12-03] MEDS: PARoxetine CR 12.5 MG TAB PO SCH (08:49)
[2017-12-03] MEDS: Ondansetron HCl/PF 4 MG/2 ML Vial IVP PRN (08:49)
[2017-12-03] MEDS: Metoclopramide HCl 10 MG TAB PO SCH ×4 (08:50→20:35)
[2017-12-03] MEDS: Brimonidine Tartrate 0.2% Ophth Soln 5 ml Bottle EA EYE SCH ×2 (08:51→20:34)
[2017-12-03] MEDS: Lubiprostone 8 MCG CAP PO SCH ×2 (08:51→17:08)
[2017-12-03] MEDS: Glimepiride 2 MG TAB PO SCH (08:53)
[2017-12-03] MEDS: Famotidine 20 MG TAB PO SCH ×2 (08:53→20:35)
[2017-12-03] MEDS: Timolol 0.5% Ophth Soln 5 ml Bottle EA EYE SCH ×2 (08:53→20:32)
--- NOTE | 2017-12-03 10:15 | PRG ---
DATE OF SERVICE: 12/03/2017 SUBJECTIVE: Ms. Pike is still having loose stools with the J tube feeds. Her pain is resolved. She is having mild nausea that is kind of her baseline. PHYSICAL EXAMINATION: VITAL SIGNS: She is afebrile. Her vital signs are stable. ABDOMEN: Soft, nontender. Her wound is healing well. ASSESSMENT: Status post open jejunostomy tube intermittently tolerating feeds. PLAN: an hour during the day may be too much for her. We could do less than that which would not be her goal. I think it would be fine because she is taking some p.o.
[2017-12-03] MEDS: HumaLOG 300 UNITS/3 ML VIAL SC PRN (12:28)
[2017-12-03] MEDS: HYDROcodone/Acetaminophen 10/325 mg Tablet PO PRN (20:35)
[2017-12-03] MEDS: Enoxaparin Sodium 40 MG/0.4 ML SYRINGE SC SCH (20:37)
[2017-12-03] MEDS: Latanoprost 0.005% Ophth Soln 2.5 ml Bottle EA EYE SCH (20:38)
[2017-12-04] MEDS: Ondansetron HCl/PF 4 MG/2 ML Vial IVP PRN (03:42)
[2017-12-04] MEDS: HYDROcodone/Acetaminophen 10/325 mg Tablet PO PRN (06:10)
[2017-12-04] MEDS: Lubiprostone 8 MCG CAP PO SCH (09:04)
[2017-12-04] MEDS: Glimepiride 2 MG TAB PO SCH (09:05)
[2017-12-04] MEDS: Famotidine/PF 20 mg/2ml Vial SLOW IVP SCH (09:06)
[2017-12-04] MEDS: Famotidine 20 MG TAB PO SCH (09:06)
[2017-12-04] MEDS: Metoclopramide HCl 10 MG TAB PO SCH (09:06)
[2017-12-04] MEDS: metFORMIN 500 MG TAB PO SCH (09:06)
[2017-12-04] MEDS: Brimonidine Tartrate 0.2% Ophth Soln 5 ml Bottle EA EYE SCH (09:06)
[2017-12-04] MEDS: PARoxetine CR 12.5 MG TAB PO SCH (09:07)
[2017-12-04] MEDS: Timolol 0.5% Ophth Soln 5 ml Bottle EA EYE SCH (09:07)
--- NOTE | 2017-12-04 09:11 | DIS ---
DATE OF ADMISSION: 11/29/2017 DATE OF DISCHARGE: 12/04/2017 ADMIT DIAGNOSES: Protein calorie malnutrition, severe gastroparesis, diabetes, insulin-dependent. DISCHARGE DIAGNOSES: Protein calorie malnutrition, severe gastroparesis, diabetes, insulin-dependent . PROCEDURES: Open jejunostomy tube by Dr. Roca without complication. CONDITION AT DISCHARGE: Improved. STAFF: Foreign Roca M.D. HOSPITAL COURSE: The patient had J tube draining. Had home health setup. On the day of discharge, she is finally tolerating her tube feeds. She did have loose stools and so had a C. diff checked and found to be C. diff positive on antigen and PCR. She is discharged home on Flagyl. We will confirm treatment course with Dr. Palmer next week. She will follow up with me in 2 weeks.
[2017-12-04] MEDS: HumaLOG 300 UNITS/3 ML VIAL SC PRN (11:59)
[2017-12-04 12:04] VITALS: BP 126/81; TEMP 97.9
--- NOTE | 2017-12-06 17:12 | PQF ---
RONY ALONSO BRYAN DAVID MD [phone] [facility] A [phone] CLINICAL DOCUMENTATION CLARIFICATION FORM: POST DISCHARGE Addendum to original discharge summary date: ____ Late entry note date: __ DATE: 12/06/17 ATTN: Please exercise your independent, professional judgment in responding to the clarification form. Clinical indicators are provided on the bottom of this form for your review Please check appropriate box(s): Patient noted for malnutrition. If possible ,please further specify the malnutition as [ ] Mild [ ] Moderate [ X] Severe [ ] Unable to determine In addition, please specify: Present on Admission (POA): [ ] Yes [ ] No [ ] Unable to determine For continuity of documentation, please document condition throughout progress notes and discharge summary. Thank You. CLINICAL INDICATORS - SIGNS / SYMPTOMS / LABS Weight loss RISK FACTORS Gastroparesis Diabetes TREATMENTS: Dietary consult (This form is maintained as a part of the permanent medical record) 2014 [employer]. All Rights Reserved [email or web address] [phone] MTDD
== END 2017-12-04 12:19 | disposition home or self-care (01) | DRG 73 ==
LOC: SDC 07:14 → SURG A 16:35
PROVIDERS: ADMIT Surgery; ATTEND Surgery
PROC: 0DHA3UZ Insertion of Feeding Device into Jejunum, Percutaneous Approach (ICD-10-PCS; principal; 2017-11-30)
DX: E11.43 Type 2 diabetes mellitus with diabetic autonomic (poly)neuropathy (principal); E43 Unspecified severe protein-calorie malnutrition; K31.84 Gastroparesis; Z79.4 Long term (current) use of insulin; Z68.34 Body mass index [BMI] 34.0-34.9, adult
CPT/HCPCS: 36415; 36416; 80048; 85025; 87324; 87449; 87493; J0360; J0694; J1100; J1650; J2001; J2270; J2405; J2550; J2704; J2765; J3010; J7050; S0028

== ENCOUNTER 2018-01-20 12:45 | Outpatient (CLI) | payer OTHER | END 2018-01-20 12:46 | disposition home or self-care (01) | LOC: DTY/OP 12:45 | PROVIDERS: ATTEND Surgery | DX: K31.84 Gastroparesis (principal); E66.01 Morbid (severe) obesity due to excess calories | CPT/HCPCS: 97802 ==

== ENCOUNTER 2018-07-25 09:24 | Outpatient (CLI) | payer MEDICARE ==
--- NOTE | 2018-07-25 10:53 | MMO ---
Bilateral MAMMO Bilat Screen [facility]. CLINICAL HISTORY: Patient is 62 years old and is seen for screening. The patient has no family history of breast cancer. The patient has no personal history of cancer. VIEWS: The views performed were: bilateral craniocaudal with tomosynthesis and bilateral mediolateral oblique with tomosynthesis. FILMS COMPARED: The present examination has been compared to prior imaging studies performed at on 01/12/2007, 08/24/2012 and 06/30/2017. MAMMOGRAM FINDINGS: There are scattered fibroglandular densities. There are stable benign appearing calcifications seen in both breasts. There are also vascular calcifications. There are no suspicious masses, suspicious calcifications, or new areas of architectural distortion. IMPRESSION: THERE IS NO MAMMOGRAPHIC EVIDENCE OF MALIGNANCY. A ROUTINE FOLLOW-UP MAMMOGRAM IN 1 YEAR IS RECOMMENDED. THE RESULTS OF THIS EXAM WERE SENT TO THE PATIENT. ACR BI-RADS Category 2 - Benign finding MAMMOGRAPHY NOTE: 1. A negative mammogram report should not delay a biopsy if a dominant of clinically suspicious mass is present. 2. Approximately 10% to 15% of breast cancers are not detected by mammography. 3. Adenosis and dense breasts may obscure an underlying neoplasm.
== END 2018-07-25 09:25 | disposition home or self-care (01) ==
LOC: BICMAMMO 09:24
PROVIDERS: ATTEND Internal Medicine Geriatric Medicine
DX: Z12.31 Encounter for screening mammogram for malignant neoplasm of breast (principal)
CPT/HCPCS: 77063; 77067

== ENCOUNTER 2019-01-30 13:48 | Outpatient (CLI) | payer MEDICARE ==
--- NOTE | 2019-01-30 14:40 | ULT ---
EXAM: Right lower extremity venous ultrasound HISTORY: Right lower extremity pain and edema since knee surgery in April COMPARISON: None TECHNIQUE: Multiplanar grayscale and color Doppler images were obtained in a right lower extremity ve nous ultrasound. Spectral analysis of the Doppler waveforms were performed. FINDINGS: The common femoral vein, profunda femoral vein, superficial femoral vein, and popliteal vei n are normal in appearance without visible thrombus. These vessels demonstrate normal compression, flow, and augmentation. The posterior tibial vein and greater saphenous vein are patent without evidence of thrombus. IMPRESSION: No evidence of DVT.
== END 2019-01-30 13:49 | disposition home or self-care (01) ==
LOC: BICULT 13:48
PROVIDERS: ATTEND Family Medicine
DX: M79.89 Other specified soft tissue disorders (principal)

== ENCOUNTER 2019-05-23 05:40 | Day surgery (SDC) | payer MEDICARE ==
[2019-05-22 09:19] VITALS: BMI 47.2
[2019-05-23] MEDS ORDERED: PROPOFOL 200 MG/20 ML VIAL ONE (10:16)
[2019-05-23] MEDS ORDERED: Lidocaine 1% PF 5 ML VIAL ONE (10:16)
--- NOTE | 2019-05-23 13:24 | OP ---
DATE OF PROCEDURE: 05/23/2019 PROCEDURE PERFORMED: Colonoscopy with snare polypectomy. PREMEDICATION: Given by Anesthesiology Department. PREPROCEDURE DIAGNOSIS: Personal history of colon polyps. POSTPROCEDURE DIAGNOSES: 1. Cecal and ascending colon polyps. 2. Otherwise, normal colon exam. DESCRIPTION OF PROCEDURE: Written consents were obtained prior to procedure. After adequate sedation, a rectal exam was performed and was normal. The endoscope was advanced to the cecum. The quality of the bowel prep was good. The ileocecal valve and appendiceal orifice were visualized and appeared normal. In the cecum, a 6 mm semipedunculated polyp was noted and was removed with snare electrocautery. The polyp was retrieved. In the distal ascending colon, an 8 mm sessile polyp was noted and was removed with snare electrocautery and retrieved. The ascending colon, hepatic flexure, transverse colon, splenic flexure, and descending colon appeared normal. Few small sigmoid diverticula were noted. The rectosigmoid colon and rectal vault appeared normal including retroflexion. ASSESSMENT: 1. Two right colon polyps removed. 2. Mild diverticulosis coli in the left colon. 3. Otherwise, normal colon exam. RECOMMENDATION: Await biopsy result. Job ID: [id number]
== END 2019-05-23 09:10 | disposition home or self-care (01) ==
LOC: SDC 05:40
PROVIDERS: ATTEND Internal Medicine Gastroenterology
PROC: 0DBK8ZX Excision of Ascending Colon, Via Natural or Artificial Opening Endoscopic, Diagnostic (ICD-10-PCS; principal; 2019-05-23)
PROC: 0DBH8ZX Excision of Cecum, Via Natural or Artificial Opening Endoscopic, Diagnostic (ICD-10-PCS; 2019-05-23)
DX: Z12.11 Encounter for screening for malignant neoplasm of colon (principal); D12.0 Benign neoplasm of cecum; D12.2 Benign neoplasm of ascending colon; K57.30 Diverticulosis of large intestine without perforation or abscess without bleeding; E10.9 Type 1 diabetes mellitus without complications; I10 Essential (primary) hypertension; M19.90 Unspecified osteoarthritis, unspecified site; E78.00 Pure hypercholesterolemia, unspecified; Z86.010 Personal history of colon polyps; Z79.84 Long term (current) use of oral hypoglycemic drugs; Z79.899 Other long term (current) drug therapy; Z88.8 Allergy status to other drugs, medicaments and biological substances
CPT/HCPCS: 36416; 88305; J2001; J2704

== ENCOUNTER 2019-08-29 09:45 | Outpatient (CLI) | payer MEDICARE ==
--- NOTE | 2019-08-29 11:43 | MMO ---
Bilateral MAMMO Bilat Screen [facility]. CLINICAL HISTORY: Patient is 63 years old and is seen for screening. The patient has no family history of breast cancer. The patient has no personal history of cancer. VIEWS: The views performed were: bilateral craniocaudal with tomosynthesis; bilateral mediolateral oblique; and bilateral mediolateral oblique with tomosynthesis. FILMS COMPARED: The present examination has been compared to prior imaging studies performed at 06/30/2017 and 07/25/2018. This study has been interpreted with the assistance of computer-aided detection. MAMMOGRAM FINDINGS: There are scattered fibroglandular densities. There are stable benign appearing calcifications seen in both breasts. There are no suspicious masses, suspicious calcifications, or new areas of architectural distortion. IMPRESSION: THERE IS NO MAMMOGRAPHIC EVIDENCE OF MALIGNANCY. A ROUTINE FOLLOW-UP MAMMOGRAM IN 1 YEAR IS RECOMMENDED. THE RESULTS OF THIS EXAM WERE SENT TO THE PATIENT. ACR BI-RADS Category 2 - Benign finding MAMMOGRAPHY NOTE: 1. A negative mammogram report should not delay a biopsy if a dominant of clinically suspicious mass is present. 2. Approximately 10% to 15% of breast cancers are not detected by mammography. 3. Adenosis and dense breasts may obscure an underlying neoplasm. Reported by: NOA EDDY MD Electonically Signed: [id number]
== END 2019-08-29 09:46 | disposition home or self-care (01) ==
LOC: BICMAMMO 09:45
PROVIDERS: ATTEND Family Medicine
DX: Z12.31 Encounter for screening mammogram for malignant neoplasm of breast (principal)
CPT/HCPCS: 77063; 77067

== ENCOUNTER 2020-09-23 08:32 | Outpatient (CLI) | payer MEDICARE | END 2020-09-23 08:33 | disposition home or self-care (01) | LOC: BICMAMMO 08:32 | PROVIDERS: ATTEND Family Medicine | DX: Z12.31 Encounter for screening mammogram for malignant neoplasm of breast (principal) | CPT/HCPCS: 77063; 77067 ==

== ENCOUNTER 2020-11-25 12:58 | Outpatient (CLI) | payer MEDICARE | END 2020-11-25 12:59 | disposition home or self-care (01) | LOC: BICCT 12:58 | PROVIDERS: ATTEND Family Medicine | DX: K43.9 Ventral hernia without obstruction or gangrene (principal); N20.0 Calculus of kidney; M47.819 Spondylosis without myelopathy or radiculopathy, site unspecified; K59.00 Constipation, unspecified; I70.90 Unspecified atherosclerosis; Z90.49 Acquired absence of other specified parts of digestive tract | CPT/HCPCS: 74176 ==

== ENCOUNTER 2020-12-08 13:33 | Inpatient (IN) | payer MEDICARE ==
[2020-12-08 14:22] LABS: #Lymphocytes 0.7 thou/uL (1.20-3.40); #Monocytes 0.8 thou/uL (0.11-0.59); #Neutrophils 10.6 thou/uL (1.40-6.50); %Basophils 0.1 % (0.0-1.0); %Lymphocytes 5.9 % (21.0-51.0); %Monocytes 6.4 % (0.0-10.0); %Neutrophils 87.5 % (42.0-75.0); Hemoglobin 12.4 g/dL (12.0-16.0); Mean Corpuscular HGB CONC 32.6 g/dL (32.0-36.0); Mean Corpuscular Hemoglobin 29.4 pg (27.0-31.0); Mean Corpuscular Volume 90.1 fL (78.0-98.0); Mean Platelet Volume 8.1 fL (7.4-10.4); Platelet Count 253 thou/uL (130-400); RBC Distribution Width 12.8 % (11.5-14.5); Red Blood Cell (RBC) Count 4.22 mill/uL (4.20-5.40); White Blood Cell (WBC) Count 12.1 thou/uL (4.8-10.8)
[2020-12-08 14:53] LABS: ALT (SGPT) 22 U/L (8-55); AST (SGOT) 34 U/L (5-34); Albumin 2.7 g/dL (3.4-4.8); Alkaline Phosphatase 85 U/L (40-110); Anion Gap 12 mmol/L (10-20); BUN (Urea Nitrogen) 18 mg/dL (9.8-20.1); Bilirubin, Total 0.7 mg/dL (0.2-1.2); Calc. Creatinine Clearance 0 mL/min (70-130); Calcium 8.8 mg/dL (7.8-10.44); Carbon Dioxide 32 mmol/L (23-31); Chloride 92 mmol/L (98-107); Globulin 3.2 g/dL (2.4-3.5); Glucose 235 mg/dL (80-115); Lipase 18 U/L (8-78); Potassium 3.1 mmol/L (3.5-5.1); Protein, Total 5.9 g/dL (5.8-8.1); Sodium 133 mmol/L (136-145)
[2020-12-08] MEDS ORDERED: Metoclopramide HCl 10 MG/2 ML VIAL ONE (18:34)
[2020-12-08] MEDS ORDERED: Potassium Chloride 20 MEQ TAB ONE (18:34)
[2020-12-08] MEDS ORDERED: diphenhydrAMINE 50 MG/ML VIAL ONE ×2 (18:34→18:43)
[2020-12-08 19:04] LABS: CKMB 0.8 ng/mL (0-6.6)
[2020-12-08 21:18] LABS: Anion Gap 12 mmol/L (10-20); BUN (Urea Nitrogen) 19 mg/dL (9.8-20.1); Calc. Creatinine Clearance 0 mL/min (70-130); Carbon Dioxide 31 mmol/L (23-31); Chloride 94 mmol/L (98-107); Sodium 134 mmol/L (136-145)
[2020-12-08 21:19] LABS: Calcium 8.5 mg/dL (7.8-10.44); Glucose 181 mg/dL (80-115)
[2020-12-08] MEDS ORDERED: Labetalol HCl 100 MG/20 ML VIAL ONE (22:12)
[2020-12-09] MEDS ORDERED: Ondansetron PF 4 MG/2 ML Vial IVP PRN (01:29)
[2020-12-09] MEDS ORDERED: Melatonin 3 MG TAB PO PRN (01:38)
[2020-12-09] MEDS ORDERED: Labetalol HCl 100 MG/20 ML VIAL SLOW IVP PRN (02:39)
[2020-12-09] MEDS ORDERED: Dextrose 50% Abboject 50 ML SYRINGE SLOW IVP PRN (02:58)
[2020-12-09] MEDS ORDERED: HumaLOG 300 UNITS/3 ML VIAL SC PRN (02:58)
[2020-12-09] MEDS ORDERED: Dextrose 5% in Water 1,000 ML IV PRN (02:58)
[2020-12-09] MEDS ORDERED: Potassium Chloride 20 MEQ/100 ML PREMIX BAG ONE ×3 (03:31→06:19)
[2020-12-09] MEDS ORDERED: Metoclopramide HCl 10 MG/2 ML VIAL ONE ×3 (03:31→13:58)
[2020-12-09] MEDS: Metoclopramide HCl 10 MG/2 ML VIAL IVP SCH ×4 (03:52→21:10)
[2020-12-09] MEDS: Potassium Chloride 20 MEQ in Premix Bag 1 BAG IVPB SCH ×2 (03:52→05:52)
[2020-12-09] MEDS ORDERED: cefTRIAXone\\ROCEPHIN 1 GM VIAL ONE (03:56)
[2020-12-09] MEDS: cefTRIAXone\\ROCEPHIN 1 GM in Sodium Chloride 0.9% 100 ML IVPB SCH (04:08)
[2020-12-09] MEDS ORDERED: Potassium Chloride 20 MEQ in Premix Bag 1 BAG IVPB SCH (06:00)
[2020-12-09] MEDS: Sodium Chloride 0.9% 1,000 ML IV SCH ×2 (06:29→21:12)
[2020-12-09 07:44] LABS: #Basophils 0.1 thou/uL (0.0-0.2); #Lymphocytes 1.2 thou/uL (1.20-3.40); %Basophils 0.9 % (0.0-1.0); %Monocytes 7.8 % (0.0-10.0); %Neutrophils 82.3 % (42.0-75.0); Hemoglobin 11.9 g/dL (12.0-16.0); Mean Corpuscular HGB CONC 35.2 g/dL (32.0-36.0); Mean Corpuscular Hemoglobin 31.6 pg (27.0-31.0); Mean Platelet Volume 8.3 fL (7.4-10.4); Platelet Count 249 thou/uL (130-400); RBC Distribution Width 12.7 % (11.5-14.5); Red Blood Cell (RBC) Count 3.76 mill/uL (4.20-5.40); White Blood Cell (WBC) Count 13.3 thou/uL (4.8-10.8)
[2020-12-09 07:55] LABS: Anion Gap 14 mmol/L (10-20); BUN (Urea Nitrogen) 21 mg/dL (9.8-20.1); Calc. Creatinine Clearance 0 mL/min (70-130); Calcium 8.3 mg/dL (7.8-10.44); Carbon Dioxide 27 mmol/L (23-31); Chloride 94 mmol/L (98-107); Glucose 222 mg/dL (80-115); Potassium 3.2 mmol/L (3.5-5.1); Sodium 132 mmol/L (136-145)
[2020-12-09] MEDS ORDERED: Metoclopramide HCl 10 MG TAB ONE (08:15)
[2020-12-09] MEDS ORDERED: Famotidine 20 MG TAB ONE (08:15)
[2020-12-09] MEDS: Famotidine/PF 20 mg/2ml Vial SLOW IVP SCH (09:26)
[2020-12-09] MEDS ORDERED: HumaLOG 300 UNITS/3 ML VIAL ONE ×2 (09:37→14:07)
[2020-12-09] MEDS: Heparin 5,000 UNITS/ML VIAL SC SCH ×3 (09:43→21:10)
[2020-12-09] MEDS: HumaLOG 300 UNITS/3 ML VIAL SC PRN ×2 (09:44→14:08)
[2020-12-09] MEDS: Tamsulosin HCl 0.4 MG CAP PO SCH (09:44)
[2020-12-09 10:02] LABS: SARS-CoV-2 NAA Rapid Test Not Detected (NotDetected)
[2020-12-09] MEDS ORDERED: Acetaminophen 325 MG TAB ONE (10:38)
[2020-12-09] MEDS ORDERED: hydrALAZINE 20 MG/ML VIAL ONE (10:42)
[2020-12-09] MEDS: Acetaminophen 325 MG TAB PO PRN ×2 (11:04→22:18)
[2020-12-09] MEDS: hydrALAZINE 20 MG/ML VIAL SLOW IVP PRN (11:05)
[2020-12-09 11:17] LABS: #Lymphocytes 1.2 thou/uL (1.20-3.40); #Monocytes 0.9 thou/uL (0.11-0.59); #Neutrophils 10.4 thou/uL (1.40-6.50); %Basophils 0.1 % (0.0-1.0); %Eosinophils 0.1 % (0.0-10.0); %Lymphocytes 9.5 % (21.0-51.0); %Monocytes 7.2 % (0.0-10.0); %Neutrophils 83.2 % (42.0-75.0); Hemoglobin 11.8 g/dL (12.0-16.0); Mean Corpuscular HGB CONC 33.1 g/dL (32.0-36.0); Mean Corpuscular Volume 90.5 fL (78.0-98.0); Mean Platelet Volume 7.9 fL (7.4-10.4); Platelet Count 253 thou/uL (130-400); RBC Distribution Width 12.9 % (11.5-14.5); Red Blood Cell (RBC) Count 3.93 mill/uL (4.20-5.40); White Blood Cell (WBC) Count 12.5 thou/uL (4.8-10.8)
[2020-12-09 12:07] LABS: ALT (SGPT) 31 U/L (8-55); AST (SGOT) 45 U/L (5-34); Albumin 2.5 g/dL (3.4-4.8); Alkaline Phosphatase 81 U/L (40-110); Anion Gap 12 mmol/L (10-20); BUN (Urea Nitrogen) 22 mg/dL (9.8-20.1); Bilirubin, Total 0.6 mg/dL (0.2-1.2); Calc. Creatinine Clearance 0 mL/min (70-130); Carbon Dioxide 29 mmol/L (23-31); Chloride 95 mmol/L (98-107); Glucose 217 mg/dL (80-115); Potassium 3.2 mmol/L (3.5-5.1); Protein, Total 5.5 g/dL (5.8-8.1); Sodium 133 mmol/L (136-145)
[2020-12-09 12:11] LABS: Bacteria/HPF None Seen HPF (None Seen); Bilirubin Negative (Negative); Blood, Urine 2+ (Negative); Clarity Clear (Clear); Glucose, Urine (Dipstick) >=1000 mg/dL (Negative); Ketone, Urine Trace mg/dL (Negative); Leukocyte Negative Leu/uL (Negative); Nitrite Negative (Negative); Protein, Urine (Dipstick) 600 mg/dL (Neg-Trace); RBC/HPF 0-3 HPF (0-3); Specific Gravity, Urine 1.028 (1.002-1.036); Squamous Epithelial 0-3 HPF (0-3); Urobilinogen Normal mg/dL (Less than 2); WBC/HPF 0-3 HPF (0-3)
[2020-12-09] MEDS: DorzolamidE/Timolol 2%/0.5% Ophth Soln 10 ml Bottle EA EYE SCH ×2 (12:20→21:58)
[2020-12-09 16:47] VITALS: BMI 45.1
[2020-12-09] MEDS: Lisinopril 20 MG TAB PO SCH (21:10)
[2020-12-09] MEDS: Lantus 1000 UNITS/10 ML VIAL SC SCH (21:59)
[2020-12-10] MEDS: Metoclopramide HCl 10 MG/2 ML VIAL IVP SCH ×4 (02:37→20:39)
[2020-12-10] MEDS: cefTRIAXone\\ROCEPHIN 1 GM in Sodium Chloride 0.9% 100 ML IVPB SCH (02:37)
[2020-12-10 05:30] LABS: #Monocytes 0.9 thou/uL (0.11-0.59); #Neutrophils 8.6 thou/uL (1.40-6.50); %Basophils 0.2 % (0.0-1.0); %Eosinophils 0.4 % (0.0-10.0); %Lymphocytes 9.2 % (21.0-51.0); %Monocytes 8.9 % (0.0-10.0); %Neutrophils 81.4 % (42.0-75.0); Hemoglobin 12.1 g/dL (12.0-16.0); Mean Corpuscular HGB CONC 33.5 g/dL (32.0-36.0); Mean Corpuscular Hemoglobin 30.5 pg (27.0-31.0); Mean Corpuscular Volume 91.1 fL (78.0-98.0); Mean Platelet Volume 8.4 fL (7.4-10.4); Platelet Count 221 thou/uL (130-400); RBC Distribution Width 12.9 % (11.5-14.5); Red Blood Cell (RBC) Count 3.98 mill/uL (4.20-5.40); White Blood Cell (WBC) Count 10.6 thou/uL (4.8-10.8)
[2020-12-10 05:53] LABS: AST (SGOT) 41 U/L (5-34); Anion Gap 14 mmol/L (10-20); Bilirubin, Total 0.5 mg/dL (0.2-1.2); Calcium 7.7 mg/dL (7.8-10.44); Carbon Dioxide 24 mmol/L (23-31); Chloride 99 mmol/L (98-107); Potassium 3.2 mmol/L (3.5-5.1); Sodium 134 mmol/L (136-145)
[2020-12-10 06:04] LABS: ALT (SGPT) 30 U/L (8-55); Albumin 2.4 g/dL (3.4-4.8); Alkaline Phosphatase 80 U/L (40-110); BUN (Urea Nitrogen) 19 mg/dL (9.8-20.1); Calc. Creatinine Clearance 61 mL/min (70-130); Globulin 2.9 g/dL (2.4-3.5); Glucose 116 mg/dL (80-115); Protein, Total 5.3 g/dL (5.8-8.1)
[2020-12-10] MEDS: Heparin 5,000 UNITS/ML VIAL SC SCH ×3 (09:33→20:40)
[2020-12-10] MEDS: Famotidine/PF 20 mg/2ml Vial SLOW IVP SCH (09:33)
[2020-12-10] MEDS: Lisinopril 20 MG TAB PO SCH ×2 (09:33→20:40)
[2020-12-10] MEDS: Tamsulosin HCl 0.4 MG CAP PO SCH (09:33)
[2020-12-10] MEDS: Lantus 1000 UNITS/10 ML VIAL SC SCH ×2 (09:34→22:13)
[2020-12-10] MEDS: DorzolamidE/Timolol 2%/0.5% Ophth Soln 10 ml Bottle EA EYE SCH ×2 (11:33→15:34)
[2020-12-10] MEDS: Acetaminophen 325 MG TAB PO PRN ×2 (15:21→22:10)
[2020-12-10] MEDS: hydrALAZINE 20 MG/ML VIAL SLOW IVP PRN (15:32)
[2020-12-10] MEDS: HumaLOG 300 UNITS/3 ML VIAL SC PRN (17:08)
[2020-12-10] MEDS: Sodium Chloride 0.9% 1,000 ML IV SCH (19:20)
[2020-12-11] MEDS: cefTRIAXone\\ROCEPHIN 1 GM in Sodium Chloride 0.9% 100 ML IVPB SCH (02:48)
[2020-12-11] MEDS: Metoclopramide HCl 10 MG/2 ML VIAL IVP SCH ×2 (02:49→08:14)
[2020-12-11] MEDS: hydrALAZINE 20 MG/ML VIAL SLOW IVP PRN ×2 (02:50→08:14)
[2020-12-11] MEDS: Lisinopril 20 MG TAB PO SCH (08:13)
[2020-12-11] MEDS: Heparin 5,000 UNITS/ML VIAL SC SCH (08:14)
[2020-12-11] MEDS: Famotidine/PF 20 mg/2ml Vial SLOW IVP SCH (08:14)
[2020-12-11] MEDS: Tamsulosin HCl 0.4 MG CAP PO SCH (08:14)
[2020-12-11] MEDS: Lantus 1000 UNITS/10 ML VIAL SC SCH (08:16)
[2020-12-11] MEDS: HumaLOG 300 UNITS/3 ML VIAL SC PRN (11:27)
[2020-12-11] MEDS: DorzolamidE/Timolol 2%/0.5% Ophth Soln 10 ml Bottle EA EYE SCH (11:28)
[2020-12-11 11:50] VITALS: BP 168/75; TEMP 98.4
[2020-12-11] MEDS ORDERED: Ondansetron ORAL SOLN. 4 MG/5 ML UDCUP PO PRN (12:08)
[2020-12-11] MEDS ORDERED: hydrALAZINE 25 MG TAB PO SCH (21:00)
[2020-12-11] MEDS ORDERED: Famotidine 20 MG TAB PO SCH (21:00)
[2020-12-11] MEDS ORDERED: Rosuvastatin 5 MG TAB PO SCH (21:00)
== END 2020-12-11 14:41 | disposition home or self-care (01) | DRG 690 ==
LOC: ERS 13:33 → ERHOLD 22:44 → OBSVTOIN 12-09 10:24 → 2NO 12-09 16:18
PROVIDERS: ADMIT Internal Medicine; ATTEND Student in an Organized Health Care Education/Training Program
DX: N30.00 Acute cystitis without hematuria (principal); N17.9 Acute kidney failure, unspecified; Z68.42 Body mass index [BMI] 45.0-49.9, adult; I24.8 Other forms of acute ischemic heart disease; E87.1 Hypo-osmolality and hyponatremia; Z20.822 Contact with and (suspected) exposure to COVID-19; E11.43 Type 2 diabetes mellitus with diabetic autonomic (poly)neuropathy; K31.84 Gastroparesis; I10 Essential (primary) hypertension; R79.89 Other specified abnormal findings of blood chemistry; E87.6 Hypokalemia; N20.0 Calculus of kidney; E66.01 Morbid (severe) obesity due to excess calories; E11.65 Type 2 diabetes mellitus with hyperglycemia; E86.0 Dehydration; Z79.899 Other long term (current) drug therapy; Z79.84 Long term (current) use of oral hypoglycemic drugs
CPT/HCPCS: 36415; 36416; 74176; 80048; 80053; 81003; 81015; 82553; 83036; 83605; 83690; 84484; 85025; 87040; 87086; 93005; 94760; 96374; 96375; G0378; J0360; J0696; J1200; J1644; J1815; J2765; J3480; J3490; J7050; S0028; U0002

== ENCOUNTER 2021-09-25 08:46 | Outpatient (CLI) | payer MEDICARE | END 2021-09-25 08:47 | disposition home or self-care (01) | LOC: BICMAMMO 08:46 | PROVIDERS: ATTEND Family Medicine | DX: Z12.31 Encounter for screening mammogram for malignant neoplasm of breast (principal) | CPT/HCPCS: 77063; 77067 ==

== ENCOUNTER 2021-10-16 12:15 | Emergency (ER) | payer MEDICARE ==
[2021-10-16 12:48] LABS: #Eosinphils 0.1 thou/uL (0.0-0.7); #Lymphocytes 1.2 thou/uL (1.20-3.40); #Monocytes 0.4 thou/uL (0.11-0.59); #Neutrophils 7.1 thou/uL (1.40-6.50); %Basophils 0.3 % (0.0-1.0); %Eosinophils 1.3 % (0.0-10.0); %Lymphocytes 13.8 % (21.0-51.0); %Monocytes 4.3 % (0.0-10.0); %Neutrophils 80.4 % (42.0-75.0); Hemoglobin 9.6 g/dL (12.0-16.0); Mean Corpuscular HGB CONC 34.7 g/dL (32.0-36.0); Mean Corpuscular Hemoglobin 32.1 pg (27.0-31.0); Mean Corpuscular Volume 92.7 fL (78.0-98.0); Mean Platelet Volume 8.1 fL (7.4-10.4); Platelet Count 203 thou/uL (130-400); RBC Distribution Width 11.9 % (11.5-14.5); White Blood Cell (WBC) Count 8.8 thou/uL (4.8-10.8)
[2021-10-16 13:09] LABS: ALT (SGPT) 16 U/L (8-55); AST (SGOT) 22 U/L (5-34); Albumin 3.2 g/dL (3.4-4.8); Alkaline Phosphatase 69 U/L (40-110); Anion Gap 11 mmol/L (10-20); BUN (Urea Nitrogen) 20 mg/dL (9.8-20.1); Bilirubin, Total 1.1 mg/dL (0.2-1.2); Calc. Creatinine Clearance 0 mL/min (70-130); Calcium 8.8 mg/dL (7.8-10.44); Carbon Dioxide 29 mmol/L (23-31); Chloride 105 mmol/L (98-107); Estimated GFR 35; Glucose 113 mg/dL (80-115); Lipase 23 U/L (8-78); Potassium 3.7 mmol/L (3.5-5.1); Protein, Total 6.2 g/dL (5.8-8.1); Sodium 141 mmol/L (136-145)
[2021-10-16] MEDS ORDERED: Metoclopramide HCl 10 MG/2 ML VIAL ONE (13:55)
[2021-10-16 14:05] LABS: Bacteria/HPF 1+ HPF (None Seen); Bilirubin Negative (Negative); Blood, Urine 1+ (Negative); Clarity Clear (Clear); Glucose, Urine (Dipstick) 70 mg/dL (Negative); Ketone, Urine Negative (Negative); Leukocyte Negative Leu/uL (Negative); Nitrite Negative (Negative); Protein, Urine (Dipstick) 600 mg/dL (Neg-Trace); Squamous Epithelial 0-3 HPF (0-3); Urobilinogen Normal mg/dL (Less than 2)
[2021-10-16] MEDS ORDERED: Iopamidol-370 76% 500 ML 1 ML ONE (15:30)
== END 2021-10-16 14:46 | disposition home or self-care (01) ==
LOC: ERS 12:15
DX: K43.9 Ventral hernia without obstruction or gangrene (principal); R11.2 Nausea with vomiting, unspecified; E11.43 Type 2 diabetes mellitus with diabetic autonomic (poly)neuropathy; K31.84 Gastroparesis; E11.39 Type 2 diabetes mellitus with other diabetic ophthalmic complication; H42 Glaucoma in diseases classified elsewhere; E78.5 Hyperlipidemia, unspecified; I10 Essential (primary) hypertension; Z79.84 Long term (current) use of oral hypoglycemic drugs; Z79.899 Other long term (current) drug therapy
CPT/HCPCS: 36415; 74177; 80053; 81003; 81015; 83690; 85025; 94760; 96374; J2765; Q9967

== ENCOUNTER 2022-01-06 13:18 | Inpatient (IN) | payer MEDICARE, OTHER ==
[~2022-01-06 13:18] MED LIST: Iopamidol-370 76% 500 ML 1 ML ONE
[2022-01-06] MEDS ORDERED: Ondansetron PF 4 MG/2 ML Vial ONE ×3 (13:42→21:02)
[2022-01-06] MEDS ORDERED: Morphine 4 MG/ML VIAL ONE (13:42)
[2022-01-06 13:49] LABS: #Monocytes 0.6 thou/uL (0.11-0.59); #Neutrophils 13.4 thou/uL (1.40-6.50); %Basophils 0.1 % (0.0-1.0); %Eosinophils 0.1 % (0.0-10.0); %Lymphocytes 6.6 % (21.0-51.0); %Monocytes 4.1 % (0.0-10.0); %Neutrophils 89.1 % (42.0-75.0); Hemoglobin 10.8 g/dL (12.0-16.0); Mean Corpuscular HGB CONC 32.7 g/dL (32.0-36.0); Mean Platelet Volume 7.9 fL (7.4-10.4); Platelet Count 228 thou/uL (130-400); Red Blood Cell (RBC) Count 3.59 mill/uL (4.20-5.40); White Blood Cell (WBC) Count 15.1 thou/uL (4.8-10.8)
[2022-01-06 14:12] LABS: ALT (SGPT) 12 U/L (8-55); AST (SGOT) 13 U/L (5-34); Albumin 3.3 g/dL (3.4-4.8); Alkaline Phosphatase 75 U/L (40-110); Anion Gap 13 mmol/L (10-20); BUN (Urea Nitrogen) 14 mg/dL (9.8-20.1); Bilirubin, Total 1.3 mg/dL (0.2-1.2); Calc. Creatinine Clearance 0 mL/min (70-130); Calcium 8.9 mg/dL (7.8-10.44); Carbon Dioxide 25 mmol/L (23-31); Chloride 100 mmol/L (98-107); Estimated GFR 34; Globulin 3.4 g/dL (2.4-3.5); Glucose 307 mg/dL (80-115); Lipase 9 U/L (8-78); Potassium 3.1 mmol/L (3.5-5.1); Protein, Total 6.7 g/dL (5.8-8.1); Sodium 135 mmol/L (136-145)
[2022-01-06 16:06] LABS: Bacteria/HPF None Seen HPF (None Seen); Bilirubin Negative (Negative); Blood, Urine 1+ (Negative); Clarity Turbid (Clear); Glucose, Urine (Dipstick) 500 mg/dL (Negative); Ketone, Urine Negative (Negative); Leukocyte 250 Leu/uL (Negative); Nitrite Negative (Negative); Protein, Urine (Dipstick) 300 mg/dL (Neg-Trace); Specific Gravity, Urine 1.025 (1.002-1.036); Urobilinogen Normal mg/dL (Less than 2); WBC/HPF Greater than 50 HPF (0-3); pH, Urine 6.5 (5.0-9.0)
[2022-01-06] MEDS ORDERED: Piperacillin/Tazobactam 3.375 GM VIAL ONE (16:12)
[2022-01-06] MEDS ORDERED: fentaNYL Citrate/PF 100 MCG/2 ML SYRINGE ONE (17:27)
[2022-01-06] MEDS ORDERED: Midazolam HCl 2 mg/2 ml Vial ONE (17:27)
[2022-01-06] MEDS ORDERED: Rocuronium Bromide 50 MG/5 ML VIAL ONE (17:28)
[2022-01-06] MEDS ORDERED: SUGAMMADEX SODIUM 200 MG/2 ML VIAL ONE (17:28)
[2022-01-06] MEDS ORDERED: Albumin 5% 500 ML ONE (17:28)
[2022-01-06] MEDS ORDERED: Insulin Regular 300 UNITS/3 ML VIAL ONE (17:28)
[2022-01-06] MEDS ORDERED: Norepinephrine 4 MG/4 ML VIAL ONE (17:28)
[2022-01-06] MEDS ORDERED: PHENYLEPHRINE-NS 100 MCG/ML 10 ML SYRINGE ONE (18:45)
[2022-01-06] MEDS ORDERED: Rocuronium Bromide 10 MG/ML (10ML VIAL) ONE (18:45)
[2022-01-06] MEDS ORDERED: Succinylcholine 200 MG/10 ml SYRINGE FS ONE (18:45)
[2022-01-06] MEDS ORDERED: PROPOFOL 200 MG/20 ML VIAL ONE (18:45)
[2022-01-06] MEDS ORDERED: cefOXitin 2 GM VIAL ONE (18:49)
[2022-01-06] MEDS ORDERED: Ondansetron HCl/PF 4 MG/2 ML Vial IVP PRN (20:33)
[2022-01-06] MEDS ORDERED: Promethazine HCl 25 MG/ML VIAL IVPB PRN (20:33)
[2022-01-06] MEDS ORDERED: diphenhydrAMINE 25 MG CAP PO PRN (20:41)
[2022-01-06] MEDS ORDERED: diphenhydrAMINE 50 MG/ML VIAL IVP PRN (20:41)
[2022-01-06] MEDS ORDERED: Ondansetron PF 4 MG/2 ML Vial IVP PRN (20:41)
[2022-01-06] MEDS ORDERED: HYDROmorphone 10 mg/100 ml CADD IVPB PRN (20:41)
[2022-01-06] MEDS ORDERED: Zolpidem Tartrate 5 MG TAB PO PRN (20:41)
[2022-01-06] MEDS ORDERED: diphenhydrAMINE 50 MG/ML VIAL IM PRN (20:41)
[2022-01-06] MEDS ORDERED: Naloxone HCl 0.4 mg/ml Vial IV PRN (20:41)
[2022-01-06] MEDS ORDERED: Communication Order-Pharmacy FS SCH (20:45)
[2022-01-06] MEDS ORDERED: Fentanyl 100 MCG/2 ML VIAL ONE (21:09)
[2022-01-06] MEDS ORDERED: Famotidine/PF 20 mg/2ml Vial SLOW IVP SCH (22:00)
[2022-01-06] MEDS: Sodium Chloride 0.9% 1,000 ML IV SCH (23:01)
[2022-01-06] MEDS: Insulin Regular 300 UNITS/3 ML VIAL SC PRN (23:07)
[2022-01-07 00:44] VITALS: BMI 48.1
[2022-01-07] MEDS: cefOXitin 2 GM in Sodium Chloride 0.9% 100 ML IVPB SCH ×2 (01:01→10:33)
[2022-01-07] MEDS: Ondansetron PF 4 MG/2 ML Vial IVP PRN ×2 (03:57→18:42)
[2022-01-07] MEDS: Sodium Chloride 0.9% 1,000 ML IV SCH ×3 (04:02→23:17)
[2022-01-07] MEDS: Insulin Regular 300 UNITS/3 ML VIAL SC PRN (05:08)
[2022-01-07] MEDS ORDERED: Metoclopramide HCl 10 MG/2 ML VIAL IVP SCH (05:45)
[2022-01-07 05:59] LABS: #Lymphocytes 0.9 thou/uL (1.20-3.40); #Monocytes 0.7 thou/uL (0.11-0.59); #Neutrophils 9.3 thou/uL (1.40-6.50); %Basophils 0.3 % (0.0-1.0); %Eosinophils 0.2 % (0.0-10.0); %Lymphocytes 7.8 % (21.0-51.0); %Monocytes 6.3 % (0.0-10.0); %Neutrophils 85.4 % (42.0-75.0); Hemoglobin 9.4 g/dL (12.0-16.0); Mean Corpuscular HGB CONC 32.7 g/dL (32.0-36.0); Mean Corpuscular Hemoglobin 30.5 pg (27.0-31.0); Mean Corpuscular Volume 93.4 fL (78.0-98.0); Mean Platelet Volume 8.5 fL (7.4-10.4); Platelet Count 191 thou/uL (130-400); RBC Distribution Width 12.2 % (11.5-14.5); Red Blood Cell (RBC) Count 3.07 mill/uL (4.20-5.40); White Blood Cell (WBC) Count 10.9 thou/uL (4.8-10.8)
[2022-01-07 06:13] LABS: Anion Gap 12 mmol/L (10-20); BUN (Urea Nitrogen) 15 mg/dL (9.8-20.1); Calc. Creatinine Clearance 65 mL/min (70-130); Calcium 7.8 mg/dL (7.8-10.44); Carbon Dioxide 25 mmol/L (23-31); Chloride 103 mmol/L (98-107); Estimated GFR 35; Glucose 213 mg/dL (80-115); Potassium 3.2 mmol/L (3.5-5.1); Sodium 137 mmol/L (136-145)
[2022-01-07] MEDS ORDERED: Dextrose 50% Abboject 50 ML SYRINGE SLOW IVP PRN (07:53)
[2022-01-07] MEDS ORDERED: Dextrose 5% in Water 1,000 ML IV PRN (07:53)
[2022-01-07] MEDS ORDERED: Insulin Glargine 30 UNITS/0.3 ML VIAL SC SCH (08:00)
[2022-01-07] MEDS ORDERED: Electrolyte Replacement Protocol 1 EACH FS SCH (08:00)
[2022-01-07] MEDS ORDERED: Electrolyte Replacement Protocol FS PRN (08:15)
[2022-01-07 08:35] LABS: Magnesium 1.2 mg/dL (1.6-2.6)
[2022-01-07] MEDS: Potassium Chloride 20 MEQ in Premix Bag 1 BAG IVPB SCH ×2 (08:56→14:49)
[2022-01-07] MEDS: Brimonidine Tartrate 0.2% Ophth Soln 5 ml Bottle EA EYE SCH ×2 (09:00→21:14)
[2022-01-07] MEDS ORDERED: Magnesium Sulfate In Water 4 GM in Premix Bag 1 BAG IVPB SCH (09:00)
[2022-01-07] MEDS: Timolol 0.5% Ophth Soln 5 ml Bottle EA EYE SCH ×2 (09:02→21:07)
[2022-01-07] MEDS: Enoxaparin Sodium 30 MG/0.3 ML SYRINGE SC SCH (09:03)
[2022-01-07] MEDS: Famotidine 20 MG TAB PO SCH (09:03)
[2022-01-07] MEDS: Famotidine/PF 20 mg/2ml Vial SLOW IVP SCH (09:03)
[2022-01-07] MEDS ORDERED: Sodium Chloride 0.9% 250 ML IV SCH (18:30)
[2022-01-07] MEDS: Latanoprost 0.005% Ophth Soln 2.5 ml Bottle EA EYE SCH (21:25)
[2022-01-07] MEDS: Insulin Glargine 30 UNITS/0.3 ML VIAL SC SCH (21:27)
[2022-01-08 06:14] LABS: #Monocytes 0.6 thou/uL (0.11-0.59); #Neutrophils 7.5 thou/uL (1.40-6.50); %Basophils 0.2 % (0.0-1.0); %Eosinophils 0.1 % (0.0-10.0); %Lymphocytes 10.6 % (21.0-51.0); %Monocytes 6.3 % (0.0-10.0); %Neutrophils 82.8 % (42.0-75.0); Mean Corpuscular HGB CONC 31.7 g/dL (32.0-36.0); Mean Corpuscular Hemoglobin 30.3 pg (27.0-31.0); Mean Corpuscular Volume 95.4 fL (78.0-98.0); Mean Platelet Volume 8.6 fL (7.4-10.4); Platelet Count 196 thou/uL (130-400); RBC Distribution Width 12.1 % (11.5-14.5); Red Blood Cell (RBC) Count 2.98 mill/uL (4.20-5.40)
[2022-01-08 06:44] LABS: Chloride 106 mmol/L (98-107); Potassium 3.6 mmol/L (3.5-5.1); Sodium 137 mmol/L (136-145)
[2022-01-08 06:45] LABS: Glucose 131 mg/dL (80-115)
[2022-01-08 06:47] LABS: Carbon Dioxide 24 mmol/L (23-31)
[2022-01-08 06:48] LABS: Calc. Creatinine Clearance 63 mL/min (70-130); Estimated GFR 34; Phosphorus 3.2 mg/dL (2.3-4.7)
[2022-01-08 06:49] LABS: BUN (Urea Nitrogen) 25 mg/dL (9.8-20.1)
[2022-01-08 06:50] LABS: Magnesium 2.4 mg/dL (1.6-2.6)
[2022-01-08 07:07] LABS: Anion Gap 10 mmol/L (10-20)
[2022-01-08] MEDS ORDERED: FLU VACC QS2022-23(65YR UP)/PF 240 MCG/0.7 ML SYRINGE IM ONE (09:00)
[2022-01-08] MEDS: Famotidine/PF 20 mg/2ml Vial SLOW IVP SCH (09:35)
[2022-01-08] MEDS: Enoxaparin Sodium 30 MG/0.3 ML SYRINGE SC SCH (09:35)
[2022-01-08] MEDS: Timolol 0.5% Ophth Soln 5 ml Bottle EA EYE SCH ×2 (09:36→20:41)
[2022-01-08] MEDS: Brimonidine Tartrate 0.2% Ophth Soln 5 ml Bottle EA EYE SCH ×2 (09:43→20:40)
[2022-01-08] MEDS: Insulin Glargine 30 UNITS/0.3 ML VIAL SC SCH ×2 (09:44→20:36)
[2022-01-08] MEDS: Famotidine 20 MG TAB PO SCH (09:44)
[2022-01-08] MEDS: Ondansetron PF 4 MG/2 ML Vial IVP PRN (10:49)
[2022-01-08] MEDS: Sodium Chloride 0.9% 1,000 ML IV SCH ×2 (10:49→17:00)
[2022-01-08] MEDS: hydrALAZINE 20 MG/ML VIAL SLOW IVP PRN ×2 (11:24→23:51)
[2022-01-08] MEDS: Latanoprost 0.005% Ophth Soln 2.5 ml Bottle EA EYE SCH (20:41)
[2022-01-09] MEDS: Ondansetron PF 4 MG/2 ML Vial IVP PRN ×4 (01:42→22:16)
[2022-01-09] MEDS: Sodium Chloride 0.9% 1,000 ML IV SCH ×4 (01:50→17:55)
[2022-01-09] MEDS: hydrALAZINE 20 MG/ML VIAL SLOW IVP PRN ×2 (04:25→13:25)
[2022-01-09] MEDS: Insulin Glargine 30 UNITS/0.3 ML VIAL SC SCH (09:30)
[2022-01-09] MEDS: Famotidine 20 MG TAB PO SCH (09:32)
[2022-01-09] MEDS: Brimonidine Tartrate 0.2% Ophth Soln 5 ml Bottle EA EYE SCH ×2 (09:37→21:27)
[2022-01-09] MEDS: Famotidine/PF 20 mg/2ml Vial SLOW IVP SCH (09:37)
[2022-01-09] MEDS: Timolol 0.5% Ophth Soln 5 ml Bottle EA EYE SCH ×2 (09:37→21:33)
[2022-01-09] MEDS: Enoxaparin Sodium 30 MG/0.3 ML SYRINGE SC SCH (10:34)
[2022-01-09] MEDS ORDERED: Insulin Glargine 30 UNITS/0.3 ML VIAL SC SCH ×3 (12:11→21:00)
[2022-01-09 12:53] LABS: Anion Gap 14 mmol/L (10-20); BUN (Urea Nitrogen) 23 mg/dL (9.8-20.1); Calc. Creatinine Clearance 80 mL/min (70-130); Calcium 8.2 mg/dL (7.8-10.44); Carbon Dioxide 16 mmol/L (23-31); Chloride 107 mmol/L (98-107); Estimated GFR 45; Glucose 182 mg/dL (80-115); Potassium 4.2 mmol/L (3.5-5.1); Sodium 133 mmol/L (136-145)
[2022-01-09] MEDS ORDERED: Furosemide 40 MG/4 ML VIAL SLOW IVP SCH (17:00)
[2022-01-09] MEDS: Insulin Regular 300 UNITS/3 ML VIAL SC PRN (18:21)
[2022-01-09] MEDS ORDERED: Metoprolol Tartrate 25 MG TAB PO SCH (21:00)
[2022-01-09] MEDS: Latanoprost 0.005% Ophth Soln 2.5 ml Bottle EA EYE SCH (21:26)
[2022-01-09] MEDS: Lisinopril 5 MG TAB PO SCH (21:29)
[2022-01-10] MEDS: Sodium Chloride 0.9% 1,000 ML IV SCH ×2 (00:13→12:34)
[2022-01-10] MEDS: hydrALAZINE 20 MG/ML VIAL SLOW IVP PRN (04:54)
[2022-01-10 05:20] LABS: Bilirubin Negative (Negative); Blood, Urine Negative (Negative); Clarity Clear (Clear); Glucose, Urine (Dipstick) 30 mg/dL (Negative); Ketone, Urine Negative (Negative); Leukocyte Negative Leu/uL (Negative); Nitrite Negative (Negative); Protein, Urine (Dipstick) 100 mg/dL (Neg-Trace); RBC/HPF None Seen HPF (0-3); Specific Gravity, Urine 1.007 (1.002-1.036); Squamous Epithelial 0-3 HPF (0-3); Urobilinogen Normal mg/dL (Less than 2); WBC/HPF 0-3 HPF (0-3)
[2022-01-10 05:21] LABS: Bacteria/HPF 1+ HPF (None Seen)
[2022-01-10] MEDS: Insulin Regular 300 UNITS/3 ML VIAL SC PRN ×2 (06:10→12:13)
[2022-01-10 07:50] LABS: #Eosinphils 0.1 thou/uL (0.0-0.7); #Lymphocytes 0.9 thou/uL (1.20-3.40); #Monocytes 0.6 thou/uL (0.11-0.59); #Neutrophils 5.8 thou/uL (1.40-6.50); %Basophils 0.1 % (0.0-1.0); %Eosinophils 1.6 % (0.0-10.0); %Lymphocytes 12.2 % (21.0-51.0); %Monocytes 7.7 % (0.0-10.0); %Neutrophils 78.3 % (42.0-75.0); Hemoglobin 9.7 g/dL (12.0-16.0); Mean Corpuscular HGB CONC 32.8 g/dL (32.0-36.0); Mean Corpuscular Hemoglobin 30.5 pg (27.0-31.0); Mean Corpuscular Volume 93.1 fL (78.0-98.0); Mean Platelet Volume 7.7 fL (7.4-10.4); Platelet Count 275 thou/uL (130-400); RBC Distribution Width 12.1 % (11.5-14.5); Red Blood Cell (RBC) Count 3.18 mill/uL (4.20-5.40); White Blood Cell (WBC) Count 7.4 thou/uL (4.8-10.8)
[2022-01-10 08:03] LABS: Anion Gap 11 mmol/L (10-20); BUN (Urea Nitrogen) 18 mg/dL (9.8-20.1); Calc. Creatinine Clearance 79 mL/min (70-130); Calcium 8.3 mg/dL (7.8-10.44); Carbon Dioxide 26 mmol/L (23-31); Chloride 103 mmol/L (98-107); Estimated GFR 45; Glucose 182 mg/dL (80-115); Potassium 3.2 mmol/L (3.5-5.1); Sodium 137 mmol/L (136-145)
[2022-01-10] MEDS ORDERED: Potassium Chloride 40 MEQ in Premix Bag 1 BAG IVPB SCH (09:00)
[2022-01-10] MEDS: Insulin Glargine 30 UNITS/0.3 ML VIAL SC SCH ×2 (09:36→21:02)
[2022-01-10] MEDS: Rosuvastatin 5 MG TAB PO SCH (09:37)
[2022-01-10] MEDS: Lisinopril 5 MG TAB PO SCH (09:37)
[2022-01-10] MEDS: Brimonidine Tartrate 0.2% Ophth Soln 5 ml Bottle EA EYE SCH ×2 (09:37→20:57)
[2022-01-10] MEDS: Metoprolol Tartrate 50 MG TAB PO SCH ×2 (09:37→21:01)
[2022-01-10] MEDS: Famotidine 20 MG TAB PO SCH (09:37)
[2022-01-10] MEDS: Enoxaparin Sodium 30 MG/0.3 ML SYRINGE SC SCH (12:13)
[2022-01-10] MEDS: Timolol 0.5% Ophth Soln 5 ml Bottle EA EYE SCH ×2 (12:14→21:00)
[2022-01-10] MEDS ORDERED: Acetaminophen 500 MG TAB PO PRN (12:34)
[2022-01-10] MEDS ORDERED: traMADol HCl 50 MG TAB PO PRN (12:34)
[2022-01-10] MEDS: Potassium Chloride 20 MEQ TAB PO SCH ×2 (12:35→16:34)
[2022-01-10] MEDS ORDERED: Acetaminophen 500 MG TAB PO SCH (12:45)
[2022-01-10] MEDS: Glimepiride 4 MG TAB PO SCH (17:32)
[2022-01-10] MEDS: metFORMIN 500 MG TAB PO SCH (17:32)
[2022-01-10] MEDS: Latanoprost 0.005% Ophth Soln 2.5 ml Bottle EA EYE SCH (21:00)
[2022-01-10] MEDS: Lisinopril 20 MG TAB PO SCH (21:01)
[2022-01-11 05:34] LABS: #Eosinphils 0.2 thou/uL (0.0-0.7); #Lymphocytes 1.1 thou/uL (1.20-3.40); #Monocytes 0.6 thou/uL (0.11-0.59); #Neutrophils 6.6 thou/uL (1.40-6.50); %Basophils 0.4 % (0.0-1.0); %Lymphocytes 13.4 % (21.0-51.0); %Monocytes 7.3 % (0.0-10.0); Hemoglobin 9.5 g/dL (12.0-16.0); Mean Corpuscular HGB CONC 32.8 g/dL (32.0-36.0); Mean Corpuscular Hemoglobin 30.1 pg (27.0-31.0); Mean Corpuscular Volume 91.8 fL (78.0-98.0); Mean Platelet Volume 7.2 fL (7.4-10.4); Platelet Count 297 thou/uL (130-400); Red Blood Cell (RBC) Count 3.16 mill/uL (4.20-5.40); White Blood Cell (WBC) Count 8.5 thou/uL (4.8-10.8)
[2022-01-11 05:51] LABS: Anion Gap 11 mmol/L (10-20); BUN (Urea Nitrogen) 15 mg/dL (9.8-20.1); Calc. Creatinine Clearance 87 mL/min (70-130); Calcium 8.2 mg/dL (7.8-10.44); Carbon Dioxide 26 mmol/L (23-31); Chloride 104 mmol/L (98-107); Estimated GFR 50; Potassium 3.2 mmol/L (3.5-5.1); Sodium 138 mmol/L (136-145)
[2022-01-11 06:00] LABS: Glucose 49 mg/dL (80-115)
[2022-01-11] MEDS: Glimepiride 4 MG TAB PO SCH (06:19)
[2022-01-11] MEDS ORDERED: Dextrose 10% in Water 500 ML IV SCH (06:30)
[2022-01-11] MEDS ORDERED: Potassium Chloride 20 MEQ TAB PO SCH (08:00)
[2022-01-11] MEDS ORDERED: Polyethylene Glycol 3350 17 GM Packet PO SCH (09:00)
[2022-01-11] MEDS: Metoprolol Tartrate 50 MG TAB PO SCH (09:17)
[2022-01-11] MEDS: Famotidine 20 MG TAB PO SCH (09:17)
[2022-01-11] MEDS: Rosuvastatin 5 MG TAB PO SCH (09:17)
[2022-01-11] MEDS: Lisinopril 20 MG TAB PO SCH (09:17)
[2022-01-11] MEDS: Timolol 0.5% Ophth Soln 5 ml Bottle EA EYE SCH (09:23)
[2022-01-11] MEDS: Brimonidine Tartrate 0.2% Ophth Soln 5 ml Bottle EA EYE SCH (09:40)
[2022-01-11] MEDS: metFORMIN 500 MG TAB PO SCH (09:41)
[2022-01-11] MEDS ORDERED: hydrALAZINE 25 MG TAB PO PRN (11:10)
[2022-01-11 12:03] VITALS: TEMP 98.3
[2022-01-11] MEDS: Enoxaparin Sodium 30 MG/0.3 ML SYRINGE SC SCH (13:28)
[2022-01-11 14:39] VITALS: BP 143/80
== END 2022-01-11 15:30 | disposition home or self-care (01) | DRG 330 ==
LOC: ERS 13:18 → SDC/OP 18:19 → SJJU 20:11
PROVIDERS: ADMIT Surgery; ATTEND Internal Medicine
PROC: 0DBH0ZZ Excision of Cecum, Open Approach (ICD-10-PCS; principal; 2022-01-06)
PROC: 0WQF0ZZ Repair Abdominal Wall, Open Approach (ICD-10-PCS; 2022-01-06)
DX: K43.6 Other and unspecified ventral hernia with obstruction, without gangrene (principal); K55.1 Chronic vascular disorders of intestine; Z68.42 Body mass index [BMI] 45.0-49.9, adult; E11.43 Type 2 diabetes mellitus with diabetic autonomic (poly)neuropathy; K31.84 Gastroparesis; H40.9 Unspecified glaucoma; E78.5 Hyperlipidemia, unspecified; I10 Essential (primary) hypertension; F32.A Depression, unspecified; E11.319 Type 2 diabetes mellitus with unspecified diabetic retinopathy without macular edema; E83.42 Hypomagnesemia; E11.22 Type 2 diabetes mellitus with diabetic chronic kidney disease; N18.32 Chronic kidney disease, stage 3b; E66.01 Morbid (severe) obesity due to excess calories; E11.649 Type 2 diabetes mellitus with hypoglycemia without coma; E87.6 Hypokalemia; Z90.710 Acquired absence of both cervix and uterus; Z90.49 Acquired absence of other specified parts of digestive tract; Z90.09 Acquired absence of other part of head and neck; Z88.8 Allergy status to other drugs, medicaments and biological substances; Z79.84 Long term (current) use of oral hypoglycemic drugs; Z79.899 Other long term (current) drug therapy; Z79.4 Long term (current) use of insulin
CPT/HCPCS: 36415; 36416; 74019; 74177; 80048; 80053; 81001; 81003; 81015; 83605; 83690; 83735; 84100; 85025; 87086; 88307; 96361; 96365; 96375; A4649; J0360; J0694; J1650; J1815; J1940; J2250; J2270; J2405; J2543; J2704; J2765; J3010; J3475; J3480; J3490; J7030; J7050; J7060; P9045; Q9967; S0028

== ENCOUNTER 2022-09-27 08:27 | Outpatient (CLI) | payer MEDICARE | END 2022-09-27 08:28 | disposition home or self-care (01) | LOC: BICMAMMO 08:27 | PROVIDERS: ATTEND Family Medicine | DX: Z12.31 Encounter for screening mammogram for malignant neoplasm of breast (principal); Z13.820 Encounter for screening for osteoporosis; N95.9 Unspecified menopausal and perimenopausal disorder | CPT/HCPCS: 77063; 77067; 77080 ==

== ENCOUNTER 2023-05-02 11:54 | Outpatient (CLI) | payer MEDICARE | END 2023-05-02 11:55 | disposition home or self-care (01) | LOC: ULT 11:54 | PROVIDERS: ATTEND Family Medicine | DX: R60.0 Localized edema (principal); R25.2 Cramp and spasm ==

== ENCOUNTER 2023-09-30 09:43 | Outpatient (CLI) | payer MEDICARE | END 2023-09-30 09:44 | disposition home or self-care (01) | LOC: BICMAMMO 09:43 | PROVIDERS: ATTEND Family Medicine | DX: Z12.31 Encounter for screening mammogram for malignant neoplasm of breast (principal) | CPT/HCPCS: 77063; 77067 ==